=== PATIENT | female | born 1960 | race Caucasian/White ===

== ENCOUNTER → 2017-01-23 | Outpatient (CLI) | payer BC ==
[2014-05-14 05:20] VITALS: BP 142/84
[~2017-01-23] MED LIST: ESTR1PAT78 TD; MELO-150 PO; OLME20TA PO; PANT40TA5 PO
--- NOTE | 2017-01-23 09:37 | KCIC ---
PROCEDURE CT left lower extremity without contrast. HISTORY Pre-surgical planning, Conformin protocol. TECHNIQUE Helical CT imaging of the left hip, left knee, and left ankle is performed without IV contrast. PQRS: One or more the following individualized dose reduction techniques were utilized for the study: 1. Automated exposure control. 2. Adjustment of the mA and/or kV according to patient size. 3. Use of iterative reconstruction technique. COMPARISON None. FINDINGS The left hip joint is intact. There is increased noise to signal ratio. There is tricompartmental degenerative arthropathy of the knee, most advanced in the medial compartment. There is mild lateral subluxation of the patella. There is lateral tilt. There is severe medial compartment narrowing. No acute abnormality of the ankle is seen. IMPRESSION Pre-surgical planning CT. Electronically signed by: Rinku Diaz MD (Jan 23, 2017 09:36:13)
== END | disposition home or self-care (01) ==
LOC: KCIC CT 08:07
PROVIDERS: ATTEND Orthopaedic Surgery
DX: M17.12 Unilateral primary osteoarthritis, left knee (principal)
CPT/HCPCS: 73700

== ENCOUNTER → 2017-02-23 | Outpatient (CLI) | payer BC ==
[2014-05-14 05:20] VITALS: BP 142/84
[~2017-02-23] MED LIST changes: +ALPR0.25 PO; +CALC-584 PO; +CELE200C PO; +GLUC1TAB40 PO; +MULT-658 PO; +VALS160T3 PO; +VENTOLIN HFA18 GM INH
[2017-02-23 09:17] LABS: BASO % 0 % (0-3); EOS % 3 % (0-3); HEMOGLOBIN 13.6 g/dL (12.0-15.5); LYMPH # 2.2 x10^3/uL (1.0-4.8); LYMPH % 32 % (24-48); MEAN CORPUSCULAR HEMOGLOBIN 28 pg (25-35); MEAN CORPUSCULAR HGB CONC 34 g/dL (31-37); MEAN CORPUSCULAR VOLUME 83 fL (79-100); MONO % 6 % (0-9); NEUT % 59 % (31-73); PLATELET COUNT 358 x10^3/uL (140-400); RED BLOOD COUNT 4.81 x10^6/uL (3.50-5.40); RED CELL DISTRIBUTION WIDTH 13.3 % (11.5-14.5); WHITE BLOOD COUNT 6.8 x10^3/uL (4.0-11.0)
[2017-02-23 09:23] LABS: PROTHROMBIN TIME PATIENT 12.9 SEC (11.7-14.0)
[2017-02-23 09:25] LABS: ALBUMIN 3.5 g/dL (3.4-5.0); CALCIUM 9.2 mg/dL (8.5-10.1); CREATININE 0.8 mg/dL (0.6-1.0); GFR 74.2; POTASSIUM 3.8 mmol/L (3.5-5.1)
--- NOTE | 2017-02-23 12:28 | EKG ---
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
[2017-02-23 12:39] LABS: BILIRUBIN,URINE NEGATIVE (NEG); GLUCOSE,URINE NEGATIVE (NEG); NITRITE,URINE NEGATIVE (NEG); PH,URINE 5.5; PROTEIN,URINE NEGATIVE (NEG-TRACE); UROBILINOGEN,URINE 0.2 mg/dL (0.2 mg/dL)
[2017-02-23 13:03] LABS: BACTERIA,URINE FEW /HPF (0-FEW); RBC,URINE 0 /HPF (0-2); SQUAMOUS EPITHELIAL CELL,UR MOD /LPF; WBC,URINE 0 /HPF (0-4)
--- NOTE | 2017-02-23 13:24 | RAD ---
Indication: Hypertension and preop for knee replacement surgery. Time of exam 12:59 PM Correlation is made with prior exam from 03/18/2011. The heart is enlarged but stable. The lungs appear clear. No infiltrate or failure is detected. No effusion or pneumothorax is seen. Impression: No acute cardiopulmonary process is detected.
== END | disposition home or self-care (01) ==
LOC: SURGPAT 13:10
PROVIDERS: ATTEND Orthopaedic Surgery
DX: Z01.818 Encounter for other preprocedural examination (principal); I10 Essential (primary) hypertension
CPT/HCPCS: 36415; 71020; 80048; 81001; 82040; 85027; 85610; 85651; 85730; 87641; 93005

== ENCOUNTER → 2017-03-11 | Outpatient (CLI) | payer BC ==
[2014-05-14 05:20] VITALS: BP 142/84
--- NOTE | 2017-03-11 13:50 | CARD ---
APPROVED REPORT EXAM: Two-dimensional and M-mode echocardiogram with Doppler and color Doppler. Other Information Quality : GoodHR: 56bpm Rhythm : Bradycardia INDICATION Murmur RISK FACTORS Hypertension Obesity 2D DIMENSIONS RVDd2.8 (2.9-3.5cm)Left Atrium(2D)2.5 (1.6-4.0cm) IVSd1.0 (0.7-1.1cm)Aortic Root(2D)2.4 (2.0-3.7cm) LVDd5.4 (3.9-5.9cm)LVOT Diameter2.2 (1.8-2.4cm) PWd1.0 (0.7-1.1cm)LVDs3.7 (2.5-4.0cm) FS (%) 31.4 %SV83.8 ml LVEF(%)58.7 (>50%) Aortic Valve AoV Peak Emery.147.4cm/sAoV VTI36.5cm AO Peak GR.8.7mmHgLVOT VTI 22.27cm AO Mean GR.5mmHg Mitral Valve MV E Wodvutre43.4cm/sMV E Peak Gr.4mmHg MV DECEL [id number] A Hhlozgzg93.6cm/s MV E Mean Gr.1mmHgE/A Ratio1.5 MV A Tryagpih149oy TDI Lateral E' P. V12.10cm/sMedial E' P. V7.85cm/s E/Lateral E'7.8E/Medial E'12.0 Tricuspid Valve TR P. Unsrzwnx518hy/sRAP YDXYTKES1ixCc TR Peak Gr.27mmHg Pulmonary Vein S1 Isxleydo95.6cm/sS2 Wuotdbia10.13cm/s D2 Oktcsdte27.1cm/sPVa xrnlwnji49lmrz LEFT VENTRICLE The left ventricle is normal size. There is normal left ventricular wall thickness. The left ventricu lar systolic function is normal and the ejection fraction is within normal range. The Ejection Fracti on is 55-60%. There is normal LV segmental wall motion. The left ventricular diastolic function and f illing is normal for age. RIGHT VENTRICLE The right ventricle is normal size. The right ventricular systolic function is normal. ATRIA The left atrium size is normal. The right atrium size is normal. The interatrial septum is intact wit h no evidence for an atrial septal defect or patent foramen ovale as noted on 2-D or Doppler imaging. AORTIC VALVE The aortic valve is normal in structure and function. The aortic valve is trileaflet. Doppler and Col or Flow revealed no significant aortic regurgitation. There is no significant aortic valvular stenosi s. MITRAL VALVE The mitral valve leaflets are thickened. There is no evidence of mitral valve prolapse. There is no m itral valve stenosis. Doppler and Color Flow revealed mild mitral regurgitation. TRICUSPID VALVE Doppler and Color Flow revealed mild tricuspid regurgitation. The pulmonary artery systolic pressure is estimated at 30 mmHg. PULMONIC VALVE Doppler and Color Flow revealed trace pulmonic valvular regurgitation. There is no pulmonic valvular stenosis. GREAT VESSELS The aortic root is normal in size. The ascending aorta is normal in size. The pulmonary artery is nor mal. The IVC is normal in size and collapses >50% with inspiration. PERICARDIAL EFFUSION There is no evidence of significant pericardial effusion. Critical Notification Critical Value: No <Conclusion> The left ventricle is normal size. The left ventricular systolic function is normal and the ejection fraction is within normal range. The Ejection Fraction is 55-60%. There is no significant aortic valvular stenosis. Doppler and Color Flow revealed no significant aortic regurgitation. Doppler and Color Flow revealed mild mitral regurgitation. Doppler and Color Flow revealed mild tricuspid regurgitation. The pulmonary artery systolic pressure is estimated at 30 mmHg.
== END | disposition home or self-care (01) ==
LOC: ECHO 08:59
PROVIDERS: ATTEND Family Medicine
DX: I08.1 Rheumatic disorders of both mitral and tricuspid valves (principal)
CPT/HCPCS: 93306

== ENCOUNTER 2017-03-17 05:42 | Inpatient (IN) | payer BC, OTHER ==
[2017-03-17] VITALS (8 sets, daily range): BP systolic 122–151; BP diastolic 66–82
[~2017-03-17] VITALS: Ht 157.5 cm; Wt 103.4 kg
[~2017-03-17 05:42] MED LIST changes: +CELECOXIB 200 MG CAPSULE. PO PRN
[2017-03-17] MEDS ORDERED: [UNRECOGNIZED DRUG - REMARK] INT ART ONE ×4 (06:00)
[2017-03-17] MEDS ORDERED: TRANEXAMIC ACID 1,000 MG in IV NS 50ML -- 1ST BAG INJ ONE (06:00)
[2017-03-17] MEDS ORDERED: VANCOMYCIN 1 GM VIAL. ONE (06:36)
[2017-03-17] MEDS ORDERED: TOBRAMYCIN POWDER 1.2 GM VIAL. ONE (06:36)
[2017-03-17] MEDS ORDERED: ACETAMINOPHEN 500 MG TABLET PO ONE ×2 (06:46→07:00)
[2017-03-17] MEDS ORDERED: LIDOCAINE 2% PF Vial for OR 5 ML VIAL. ONE (06:58)
[2017-03-17] MEDS ORDERED: PROPOFOL 20 ML IV ONE ×2 (06:58→09:09)
[2017-03-17] MEDS ORDERED: FAMOTIDINE 20 MG/2 ML VIAL ONE (06:58)
[2017-03-17] MEDS ORDERED: ONDANSETRON PF 4 MG/2 ML VIAL. ONE (06:58)
[2017-03-17] MEDS ORDERED: DEXAMETHASONE SOD PHOS 20 MG/5 ML VIAL. ONE (06:58)
[2017-03-17] MEDS ORDERED: fentaNYL PF VIAL 100 MCG/2 ML VIAL ONE (07:00)
[2017-03-17] MEDS ORDERED: ONDANSETRON PF 4 MG/2 ML VIAL. IV PRN (07:00)
[2017-03-17] MEDS ORDERED: LIDOCAINE 1% 1 ML SYRINGE. ID PRN (07:00)
[2017-03-17] MEDS ORDERED: IV RINGERS,LACTATED 1000ML 1,000 ML IV SCH (07:00)
[2017-03-17] MEDS ORDERED: MIDAZOLAM HCL/PF 2 MG/2 ML VIAL. ONE (07:00)
[2017-03-17] MEDS ORDERED: ROCURONIUM 50 MG/5 ML VIAL. ONE (07:00)
[2017-03-17] MEDS ORDERED: PROCHLORPERAZINE 10 MG/2 ML VIAL. IV PRN ×2 (07:00→10:00)
[2017-03-17] MEDS ORDERED: MORPHINE SULFATE 5 MG, KETOROLAC TROMETHAMINE 30 MG, ROPIVacaine 0.5% PF 60 ML, EPINEPH... INT ART ONE ×5 (07:00)
[2017-03-17] MEDS ORDERED: fentaNYL PF VIAL 100 MCG/2 ML VIAL IV PRN ×4 (07:00→10:00)
[2017-03-17] MEDS ORDERED: PROPOFOL 100 ML IV ONE (07:14)
--- NOTE | 2017-03-17 07:27 | PDOC1 ---
History and Physical Date of Admission Date of Admission DATE: 03/17/17 Identification/Chief Complaint Chief Complaint left knee osteoarthritis pain Problems: Source Source: Chart review History of Present Illness History of Present Illness Ms. Morales is a 56 year old female patient with left knee pain. She had a right knee medial unicondylar arthroplasty on 04/07/16, which is dong well. She has had multiple left knee cortisone injections in the past, with varying relief. She reports stiffness in the mornings and after prolonged sitting. The pain is a dull ache that is rated at a constant 5/10 on average, which is aggravated by prolonged weightbearing. Viscosupplementation was denied by her insurance company. She has pain that wakes her up at night and interferes with her sleep and activities of daily living. She was participating in an exercise class, but is having difficulty now due to the left knee osteoarthritis pain. Past Medical History Cardiovascular: HTN Pulmonary: Asthma GI: GERD Musculoskeletal: Osteoarthritis Past Surgical History Past Surgical History: Total knee replacement, Hysterectomy, Other (right ankle tendon repair, knee arthroscopy, breast aug) Family History Family History: Diabetes, Heart Disease, Osteo Arthiritis Social History Smoke: No ALCOHOL: occassional Drugs: None Current Medications Current Medications Current Medications Ropivacaine 53.3 ml/Epinephrine HCl 0.6 mg/ Morphine Sulfate 5 mg/Sodium Chloride 100 ml @ 100 mls/hr 1X PERIOP ONCE INT ART ; Start 03/17/17 at 06:00 ; Stop 03/17/17 at 06:59; Status Cancel Ondansetron HCl (Zofran) 4 mg PRN Q6HRS PRN IV NAUSEA/VOMITING; Start 03/17/17 at 07:00; Stop 03/18/17 at 06:59 Fentanyl Citrate (Fentanyl 2ml Vial) 25 mcg PRN Q5MIN PRN IV MILD PAIN; Start 03/17/17 at 07:00; Stop 03/18/17 at 06:59 Fentanyl Citrate (Fentanyl 2ml Vial) 50 mcg PRN Q5MIN PRN IV MODERATE PAIN; Start 03/17/17 at 07:00; Stop 03/18/17 at 06:59 Ringer's Solution 1,000 ml @ 30 mls/hr Q24H IV Last administered on 03/17/17t 06:48; Start 03/17/17 at 07:00; Stop 03/17/17 at 18:59 Lidocaine HCl 2 ml PRN 1X PRN ID PRIOR TO IV START; Start 03/17/17 at 07:00; Stop 03/18/17 at 06:59 Prochlorperazine Edisylate (Compazine) 5 mg PACU PRN PRN IV NAUSEA, MRX1; Start 03/17/17 at 07:00; Stop 03/18/17 at 06:59 Celecoxib (CeleBREX) 400 mg 1X PREOP PRN PO PRIOR TO PROCEDURE Last administered on 03/17/17t 06:49; Start 03/16/17 at 06:00 Cefazolin Sodium/ Dextrose 50 ml @ 100 mls/hr 1X PREOP PRN IV PRIOR TO PROCEDURE; Start 03/17/17 at 06:00; Stop 03/17/17 at 18:00 Tranexamic Acid 1000 mg/Sodium Chloride 60 ml @ 60 mls/hr 1X PERIOP ONCE INJ ; Start 03/17/17 at 06:00; Stop 03/17/17 at 06:59; Status DC Tranexamic Acid 1000 mg/Sodium Chloride 60 ml @ 60 mls/hr 1X PERIOP ONCE INJ ; Start 03/17/17 at 08:00; Stop 03/17/17 at 08:59 Vancomycin HCl 1 gm STK-MED ONCE .ROUTE ; Start 03/17/17 at 06:36; Stop at 06:37; Status DC Tobramycin Sulfate 1.2 gm STK-MED ONCE .ROUTE ; Start 03/17/17 at 06:36; Stop at 06:37; Status DC Morphine Sulfate 5 mg/Ketorolac Tromethamine 30 mg/Ropivacaine 60 ml/ Epinephrine HCl 0.5 mg/Sodium Chloride 100 ml @ 100 mls/hr 1X PERIOP ONCE INT ART ; Start 03/17/17 at 07:00; Stop 03/17/17 at 07:59 Acetaminophen (Tylenol) 500 mg STK-MED ONCE PO ; Start 03/17/17 at 06:46; Stop 03/17/17 at 06:47; Status DC Acetaminophen (Tylenol) 1,000 mg 1X ONCE PO Last administered on 03/17/17t 06: 54; Start 03/17/17 at 07:00; Stop 03/17/17 at 07:01; Status DC Propofol 20 ml @ As Directed STK-MED ONCE IV ; Start 03/17/17 at 06:58; Stop at 06:59; Status DC Dexamethasone Sodium Phosphate (Decadron) 20 mg STK-MED ONCE .ROUTE ; Start at 06:58; Stop 03/17/17 at 06:59; Status DC Ondansetron HCl (Zofran) 4 mg STK-MED ONCE .ROUTE ; Start 03/17/17 at 06:58; Stop 03/17/17 at 06:59; Status DC Lidocaine HCl (Lidocaine Pf 2% Vial) 5 ml STK-MED ONCE .ROUTE ; Start 03/17/17 at 06:58; Stop 03/17/17 at 06:59; Status DC Famotidine (Pepcid) 20 mg STK-MED ONCE .ROUTE ; Start 03/17/17 at 06:58; Stop at 06:59; Status DC Midazolam HCl (Versed) 2 mg STK-MED ONCE .ROUTE ; Start 03/17/17 at 07:00; Stop 03/17/17 at 07:01; Status DC Fentanyl Citrate (Fentanyl 2ml Vial) 100 mcg STK-MED ONCE .ROUTE ; Start at 07:00; Stop 03/17/17 at 07:01; Status DC Rocuronium [place] (Zemuron) 50 mg STK-MED ONCE .ROUTE ; Start 03/17/17 at 07:00 ; Stop 03/17/17 at 07:01; Status DC Propofol 100 ml @ As Directed STK-MED ONCE IV ; Start 03/17/17 at 07:14; Stop 03/17/17 at 07:15; Status DC Active Scripts Active Reported Xanax (Alprazolam) 0.25 Mg Tablet 0.25 Mg PO PRN Q6HRS PRN Ventolin Hfa Inhaler (Albuterol Sulfate) 18 Gm Hfa.aer.ad 2 Puff INH Q4HRS Calcium 500-Vit D3 600 Tablet (Calcium Carbonate/Vitamin D3) 1 Each Tablet 1 Each PO BID Centrum Silver Tablet (Multivits-Min/Fa/Lycopene/Lut) 1 Each Tablet 1 Each PO DAILY Glucosamine-Msm Caplet (Glucosamine Sulfate/Msm) 1 Each Tablet 1 Each PO DAILY Celebrex (Celecoxib) 200 Mg Capsule 1 Cap PO DAILY Diovan (Valsartan) 160 Mg Tablet 160 Mg PO DAILY Pantoprazole Sodium 40 Mg Tablet.dr 40 Mg PO DAILY Allergies Allergies: Coded Allergies: acetaminophen (Verified Adverse Reaction, Intermediate, Nausea and Vomiting, 03/17/17) hydrocodone (Verified Adverse Reaction, Intermediate, Nausea and Vomiting , 03/17/17) Physical Exam General: Alert, Oriented X3, Cooperative, No acute distress HEENT: Atraumatic, EOMI Lungs: Normal air movement Heart: RRR Abdomen: Soft Extremities: No clubbing, No cyanosis, Normal pulses Skin: No rashes, No breakdown, No significant lesion Neuro: Normal speech, Sensation intact Psych/Mental Status: Mental status NL, Mood NL Vitals Vitals Vital Signs Date Time Temp Pulse Resp B/P (MAP) Pulse Ox O2 Delivery O2 Flow Rate FiO2 03/17/17 06:22 98.7 56 16 144/70 96 Room Air 98.7 VTE Prophylaxis Ordered VTE Prophylaxis Devices: Yes VTE Pharmacological Prophylaxi: Yes Assessment/Plan Assessment/Plan Ms. Morales has has failed nonoperative treatment of left knee osteoarthritis. The pain is now affecting her daily life and has prohibited her from exercising. Dr. [place] recommended left total knee arthroplasty using 3-D printed implants. Potential risks were discussed, such as infection, neurovascular injury, bleeding, blood clots, need for revision surgery or any other potential surgical or anesthetic complications. All of her questions were answered and she desires to proceed. SIDDHARTH ARITA March 17, 2017 07:27
[2017-03-17] MEDS ORDERED: ePHEDrine PF IN SALINE 50 MG/5 ML DISP.SYRIN IV ONE (07:54)
[2017-03-17] MEDS ORDERED: TRANEXAMIC ACID 1,000 MG in IV NS 50ML -- 2ND BAG INJ ONE (08:00)
[2017-03-17] MEDS ORDERED: MORPHINE SULFATE 10 MG/ML VIAL. IV PRN (10:00)
[2017-03-17] MEDS ORDERED: diphenhydrAMINE 50 MG/ML VIAL IV PRN (10:00)
[2017-03-17] MEDS ORDERED: METOCLOPRAMIDE HCL 10 MG/2 ML VIAL. IV PRN (10:00)
[2017-03-17] MEDS ORDERED: MORPHINE SULFATE 2 MG/ML DISP.SYRIN. IV PRN (10:00)
[2017-03-17] MEDS ORDERED: traMADol 50 MG TABLET PO PRN (10:00)
[2017-03-17] MEDS ORDERED: PROCHLORPERAZINE 5 MG TABLET. PO PRN (10:00)
[2017-03-17] MEDS ORDERED: 0.9 % SODIUM CHLORIDE 10 ML DISP.SYRIN. IV PRN (10:00)
[2017-03-17] MEDS ORDERED: MORPHINE SULFATE 4 MG/ML DISP.SYRIN. IV PRN ×2 (10:00)
[2017-03-17] MEDS ORDERED: CALCIUM CARBONATE 500 MG TAB.CHEW PO PRN (10:00)
[2017-03-17] MEDS ORDERED: oxyCODONE IR 5 MG TABLET PO PRN (10:00)
[2017-03-17] MEDS ORDERED: DEXTROSE 50% 25 GM / 50ML DISP.SYRIN. IV PRN (10:00)
[2017-03-17] MEDS ORDERED: ZOLPIDEM 5 MG TABLET. PO PRN (10:00)
--- NOTE | 2017-03-17 10:04 | PDOC4 ---
Operative Note Operative Note Date of Procedure: March 17, 2017 Pre-Op Diagnosis: Osteoarthritis left knee Post-Op Diagnosis: Osteoarthritis left knee Procedure: left total knee arthroplasty Surgeon: Ema [place] MD Hand Candy Molder: Jessika Schuler PA-C Anesthesia: General EBL: 100 mL Specimens Obtained: left knee bone and soft tissue Complications: none Implant Company: [employer] Patient Matched Implants and Patient Matched Jigs Drains: Hemovac plus pain catheter Tourniquet time: 67 minutes Indications for Procedure: Arthritis pain unrelieved by nonoperative management. Findings: Severe osteoarthritis with bone on bone contact medially Implants used: Custom posterior stabilized implants, with patella resurfacing 32 mm Procedure in Detail: The patient was identified in the preoperative holding area, and the correct left extremity was marked by me. The patient was taken to the operating room where the patient was anesthetized by the Department of Anesthesia. Preoperative antibiotics were given intravenously. Tranexamic acid 1 g was given intravenously for intraoperative hemostasis. A "time-out" procedure was performed. The patient was positioned supine on the operative table with a tourniquet on the upper thigh. The limb was thoroughly prepped and draped in sterile fashion. An impervious stockinet and adhesive drape were used such that the skin was entirely covered. An TapSurge leg castro was used. The operating team wore personal exhaust-ventilated hoods. The tourniquet was inflated to 350 mm Hg. A midline skin incision was made with a scalpel using the patella and tibial tubercle as landmarks. Electrocautery was used for hemostasis. My licensed nursing assistant used rake retractors. A medial parapatellar arthrotomy incision was used with extension into the distal quadriceps tendon. The patella was retracted laterally and Hohmann retractors were now used by my licensed nursing assistant. Excess synovium, the menisci, and the cruciate ligaments were resected sharply. The patella was assessed and excess synovium and osteophytes around the patellar articulation were removed. The patella was measured with a caliper, cut freehand with a saw using caliper measurements, sized, and then drilled for an oval three-pegged patella component. Periarticular injection was used in the suprapatellar pouch and distal quadriceps muscle. The patient-matched Positioning Jig was applied, and the coring reamer was used to expose the subchondral bone. The Alignment Jig and Distal Resection Jig were applied to the femur. The rotational pin holes were drilled on the distal femur. The distal resection was made using the Jig. No additional distal femoral resection was required. My licensed nursing assistant held Hohmann retractors and an Army-Regan retractor to protect the medial and lateral collateral ligaments, the patellar tendon, the skin and the other soft tissues. The Extension Spacer Jig was used to check that the cuts were planar. The patient-matched Tibial Jig was first aligned to the tibia, and cartilage was removed with a curette for application of the Jig to the subchondral bone. The Tibial Jig was pinned to the tibia and rotational alignment and the planned resection thickness assessed. An external alignment james was used to verify the planned cut in the varus-valgus plane and regarding posterior slope referencing the tibial tubercle, the tibial shaft, the ankle joint, and the second metatarsal. The upper tibia was cut made with an oscillating saw. My licensed nursing assistant held Hohmann retractors and a posterior cruciate ligament retractor to protect the medial and lateral collateral ligaments, the patellar tendon, the skin, the peroneal nerve and the other soft tissues. Gap balancing was now performed, using the Extension Spacer Jig in extension, and then a thinner but similar Flexion Spacer Jig, and gap balance assessed. The F4 femoral cutting Jig was now applied using the previous rotational pin holes and using the Flexion Spacer Jig. An kizzy wing was used to confirm that the femoral cut was appropriate, and would not notch the femur. Additional pins were used on the F4 Jig. The anterior, posterior, and anterior chamfer cuts were made without difficulty, with appropriate bone resection. The lug holes were drilled. The Resection Flexion Spacer Jig confirmed the cuts and balance in flexion, and no additional resection was needed. The F5 Chamfer Jig was applied and the two posterior chamfer cuts were made. Finally the Box Cutting Jig was used, pinned into place, and the box resected with a reciprocating saw. The Box Gauge Jig was used to verify the resection and additional box resection and soft tissue resection of the PCL was used so that the Box Gauge Jig fit flush. The posterior compartment was cleared of osteophytes and loose bodies, and posterior capsule released. Ciera-articular injection was used in the posterior compartment. A preliminary reduction was performed with the patient matched trial femur, patient-matched tibia alignment guide and patella. Soft-tissue balancing was now performed, and extension and rotation of the alignments was checked using a guide james in the tibial trial and a guide pin in the femur. No additional releases were required. The stability was assessed using different thicknesses of tibial articular surface to find satisfactory stability and good range of motion. The rotation of the tibial component was marked on the upper tibia. Final trial reduction was now performed verifying patella tracking and tibiofemoral stability and alignment. The tibia preparation was completed with a drill, and fin punch at the previously noted rotation. The final patient-matched implants were verified and opened. Outer gloves were changed by the operating team. The bone cuts were washed thoroughly with the Qalendra InterPulse device and dried. Two packages of Palacos bone cement were mixed in powdered form with 1 gm of Vancomycin and 1.2 g tobramycin, then vacuum-mixed with the monomer, and placed into a cement gun. The cut surfaces of the bone were thoroughly dried with Pringle-tip suction and with laparotomy sponges for cement interdigitation. The final components were cemented into place. The knee was kept at full extension while the cement hardened, and excess cement was removed. Tranexamic acid 1 g was redosed intravenously for additional intraoperative hemostasis. A final periarticular injection was used for pain relief. The tourniquet was released, and electrocautery was used for hemostasis. A final check of [id number] and stability was made, and the polyethylene implant final size was chosen, 10 mm thickness. The polyethylene implant was secured to the tibial baseplate, and the knee was reduced a final time. Thorough irrigation was used. Hemovac and pain catheter were used.The arthrotomy was closed with interrupted [id number] #1 PDS suture. The arthrotomy incision was then run with #1 STRATAFIX Symmetric PDS Plus Knotless suture. The subcutaneous tissues were closed with #2-0 Vicryl by my licensed nursing assistant. The skin was reapproximated with STRATAFIX Spiral MONOCRYL Plus Knotless suture by my licensed nursing assistant. The skin incision was then covered and reinforced with Dermabond Prineo mesh skin closure dressing by my licensed nursing assistant. She then applied bulky sterile gauze dressing was applied. Needle and sponge counts were correct. EMA [place] MD March 17, 2017 10:03
--- NOTE | 2017-03-17 10:29 | RAD ---
Indication postop. AP and lateral views of the left knee were obtained. There is a total knee replacement. No complication is seen. Surgical drain is noted.
[2017-03-17] MEDS ORDERED: ALPRAZolam 0.25 MG TABLET PO PRN (13:15)
[2017-03-17] MEDS: LOSARTAN POTASSIUM 50 MG TABLET. PO SCH (13:24)
[2017-03-17] MEDS: IV DEXTROSE 5 %-0.45 % NACL 1,000 ML IV SCH (14:53)
[2017-03-17] MEDS: ALBUTEROL SULFATE 2.5 MG/3 ML NEBU. NEB SCH ×2 (15:53→19:40)
[2017-03-17] MEDS ORDERED: NON FORMULARY ITEM (Albuterol Sulfate (Ventolin Hfa Inhaler) 2 PUFF) INH SCH (16:00)
[2017-03-17] MEDS: FERROUS SULFATE 325 MG TABLET. PO SCH (17:00)
[2017-03-17] MEDS: CALCIUM CARB/VIT D3 500/200 TABLET. PO SCH (17:10)
[2017-03-17] MEDS: CELECOXIB 200 MG CAPSULE. PO SCH (21:11)
[2017-03-17] MEDS: ASPIRIN ENTERIC COATED 325 MG TABLET.DR. PO SCH (21:11)
[2017-03-18 03:03] VITALS: BP 148/72
[2017-03-18] MEDS ORDERED: MAGNESIUM HYDROXIDE 2,400 MG/30 ML ORAL.SUSP. PO PRN (06:00)
[2017-03-18 06:39] VITALS: BP 142/68
[2017-03-18] MEDS: IV DEXTROSE 5 %-0.45 % NACL 1,000 ML IV SCH (07:00)
[2017-03-18] MEDS: SENNOSIDES/DOCUSATE 8.6/50MG TABLET. PO SCH (08:06)
[2017-03-18] MEDS: CALCIUM CARB/VIT D3 500/200 TABLET. PO SCH ×2 (08:06→17:08)
[2017-03-18] MEDS: PANTOPRAZOLE 40 MG TABLET.DR. PO SCH (08:06)
[2017-03-18] MEDS: MULTIVITAMIN with MINERAL TABLET. PO SCH (08:06)
[2017-03-18] MEDS: FERROUS SULFATE 325 MG TABLET. PO SCH ×2 (08:07→17:00)
[2017-03-18] MEDS: CELECOXIB 200 MG CAPSULE. PO SCH ×2 (08:07→21:08)
[2017-03-18] MEDS: ASPIRIN ENTERIC COATED 325 MG TABLET.DR. PO SCH ×2 (08:07→21:08)
[2017-03-18] MEDS: LOSARTAN POTASSIUM 50 MG TABLET. PO SCH (08:08)
[2017-03-18 08:15] LABS: HEMATOCRIT 36.4 % (36.0-47.0); HEMOGLOBIN 12.2 g/dL (12.0-15.5); RED BLOOD COUNT 4.28 x10^6/uL (3.50-5.40); RED CELL DISTRIBUTION WIDTH 13.8 % (11.5-14.5); WHITE BLOOD COUNT 9.7 x10^3/uL (4.0-11.0)
[2017-03-18] MEDS: traMADol 50 MG TABLET PO PRN ×4 (09:35→23:35)
--- NOTE | 2017-03-18 09:43 | PDOC ---
PROGRESS NOTES Subjective Subjective No complaints. Pain controlled. Objective Vital Signs Vital Signs Date Time Temp Pulse Resp B/P (MAP) Pulse Ox O2 Delivery O2 Flow Rate FiO2 03/18/17 09:35 16 Room Air 03/18/17 08:08 62 142/68 03/18/17 06:39 98.3 97 98.3 03/17/17 09:56 10 Physical Exam Dressing dry and intact. Pain catheter and Hemovac in place. Good dorsiflexion and plantarflexion of the foot with no evidence of neurovascular injury or DVT. Calves are soft and non-tender. Negative Homans. Peripheral pulses and light touch sensation intact. Labs Laboratory Tests Test 03/18/17 07:30 White Blood Count 9.7 x10^3/uL (4.0-11.0) Red Blood Count 4.28 x10^6/uL (3.50-5.40) Hemoglobin 12.2 g/dL (12.0-15.5) Hematocrit 36.4 % (36.0-47.0) Mean Corpuscular Volume 85 fL (79-100) Mean Corpuscular Hemoglobin 28 pg (25-35) Mean Corpuscular Hemoglobin Concent 33 g/dL (31-37) Red Cell Distribution Width 13.8 % (11.5-14.5) Platelet Count 287 x10^3/uL (140-400) Laboratory Tests Test 03/18/17 07:30 White Blood Count 9.7 x10^3/uL (4.0-11.0) Red Blood Count 4.28 x10^6/uL (3.50-5.40) Hemoglobin 12.2 g/dL (12.0-15.5) Hematocrit 36.4 % (36.0-47.0) Mean Corpuscular Volume 85 fL (79-100) Mean Corpuscular Hemoglobin 28 pg (25-35) Mean Corpuscular Hemoglobin Concent 33 g/dL (31-37) Red Cell Distribution Width 13.8 % (11.5-14.5) Platelet Count 287 x10^3/uL (140-400) Imaging Postoperative x-rays reviewed by me, showing satisfactory total knee replacement , with no apparent complications. Assessment Assessment POD #1 left TKA Problems: Plan Plan of Care Continue POC including DVT prophylaxis and physical therapy. SIDDHARTH ARITA March 18, 2017 09:43
[2017-03-18] MEDS ORDERED: SCOPOLAMINE 1.5MG PATCH. TD ONE (10:45)
[2017-03-18] MEDS ORDERED: BISACODYL 10 MG SUPP.RECT. PR PRN (16:00)
[2017-03-18 17:59] VITALS: BP 152/74
[2017-03-19 05:08] LABS: HEMATOCRIT 34.3 % (36.0-47.0); HEMOGLOBIN 11.5 g/dL (12.0-15.5)
[2017-03-19 06:06] VITALS: BP 146/73
[2017-03-19] MEDS: traMADol 50 MG TABLET PO PRN ×4 (06:40→20:44)
[2017-03-19] MEDS: PANTOPRAZOLE 40 MG TABLET.DR. PO SCH (06:40)
[2017-03-19] MEDS: SENNOSIDES/DOCUSATE 8.6/50MG TABLET. PO SCH (08:33)
[2017-03-19] MEDS: FERROUS SULFATE 325 MG TABLET. PO SCH ×2 (08:33→17:21)
[2017-03-19] MEDS: CELECOXIB 200 MG CAPSULE. PO SCH ×2 (08:33→20:44)
[2017-03-19] MEDS: CALCIUM CARB/VIT D3 500/200 TABLET. PO SCH ×2 (08:33→17:21)
[2017-03-19] MEDS: ASPIRIN ENTERIC COATED 325 MG TABLET.DR. PO SCH ×2 (08:33→20:44)
[2017-03-19] MEDS: MULTIVITAMIN with MINERAL TABLET. PO SCH (08:33)
[2017-03-19] MEDS: LOSARTAN POTASSIUM 50 MG TABLET. PO SCH (08:40)
--- NOTE | 2017-03-19 12:41 | PDOC ---
PROGRESS NOTES Subjective Subjective Doing well. Only reports mild pain increase from yesterday. Objective Vital Signs Vital Signs Date Time Temp Pulse Resp B/P (MAP) Pulse Ox O2 Delivery O2 Flow Rate FiO2 03/19/17 09:31 Room Air 03/19/17 08:40 62 142/64 03/19/17 06:40 20 03/19/17 06:06 98.6 98 98.6 03/17/17 09:56 10 Physical Exam Expected swelling. Pain catheter and drain have been removed. Dressing with spotty drainage only. Calf soft and nontender. Negative homans sign. Good AROM ankle. Peripheral pulses and light touch sensation intact. Labs Laboratory Tests Test 03/18/17 07:30 03/19/17 03:40 White Blood Count 9.7 x10^3/uL (4.0-11.0) Red Blood Count 4.28 x10^6/uL (3.50-5.40) Hemoglobin 12.2 g/dL (12.0-15.5) 11.5 g/dL (12.0-15.5) Hematocrit 36.4 % (36.0-47.0) 34.3 % (36.0-47.0) Mean Corpuscular Volume 85 fL (79-100) Mean Corpuscular Hemoglobin 28 pg (25-35) Mean Corpuscular Hemoglobin Concent 33 g/dL (31-37) 34 g/dL (31-37) Red Cell Distribution Width 13.8 % (11.5-14.5) Platelet Count 287 x10^3/uL (140-400) Laboratory Tests Test 03/19/17 03:40 Hemoglobin 11.5 g/dL (12.0-15.5) Hematocrit 34.3 % (36.0-47.0) Mean Corpuscular Hemoglobin Concent 34 g/dL (31-37) Imaging X-rays independently reviewed by me and show satisfactory TKA alignment and no apparent complications. Assessment Assessment POD 2 TKA Problems: Plan Plan of Care Continue DVT prophylaxis and physical therapy. Planned discharge tomorrow. Office F/U in 10-14 days. EMA MONTANA MD Mar 19, 2017 12:41
--- NOTE | 2017-03-19 15:45 | PATHOLOGY ---
PATHOLOGY REPORT * * * * * * * * FINAL DIAGNOSIS: Segments of bone and soft tissue, left total knee arthroplasty: - Advanced degenerative arthritis. REPORT ELECTRONICALLY SIGNED BY: Owen Millard M.D. DATE/TIME: 03/19/2017 15:44 * * * * * * * * GROSS PATHOLOGY: Received in formalin labeled "Carlos Del Real, left knee tissue," are multiple segments of bone, including tibial plateau, measuring 8.8 x 8.6 x 3.1 cm in aggregate dimensions admixed with soft tissue; meniscus is present. The specimen shows focal eburnation of the articular surfaces. Pool Table Mechanic sections of bone and soft tissue are submitted in cassette A1, following decalcification. (CAA; 03/18/2017) INITIAL CPT CODE(S): A; 18007, 81614 Professional services [place] [facility] [place] [address] Technical services performed by [facility] at [address] [place] [address], [place] [address]. SPECIMEN(S) RECEIVED: A.Left knee tissue CLINICAL HISTORY: Left knee OA PATIENT: CARLOS DEL REAL /AGE: 9 1960 (Age: 56) PATIENT #: [id number] ALT CASE #: SPECIMEN COLLECTION DATE: 03/17/2017 SPECIMEN RECEIVED DATE: 03/17/2017 [facility] - [address] [place] [address] - PHONE: [phone] * * * END OF REPORT * * *
[2017-03-19 17:53] VITALS: BP 157/65
[2017-03-20 06:02] VITALS: BP 148/79
[2017-03-20] MEDS: PANTOPRAZOLE 40 MG TABLET.DR. PO SCH (06:06)
[2017-03-20] MEDS: CELECOXIB 200 MG CAPSULE. PO SCH (08:04)
[2017-03-20] MEDS: FERROUS SULFATE 325 MG TABLET. PO SCH (08:04)
[2017-03-20] MEDS: SENNOSIDES/DOCUSATE 8.6/50MG TABLET. PO SCH (08:05)
[2017-03-20] MEDS: CALCIUM CARB/VIT D3 500/200 TABLET. PO SCH (08:05)
[2017-03-20] MEDS: ASPIRIN ENTERIC COATED 325 MG TABLET.DR. PO SCH (08:05)
[2017-03-20] MEDS: MULTIVITAMIN with MINERAL TABLET. PO SCH (08:05)
[2017-03-20] MEDS: LOSARTAN POTASSIUM 50 MG TABLET. PO SCH (08:08)
[2017-03-20] MEDS: traMADol 50 MG TABLET PO PRN ×2 (08:38→12:39)
[2017-03-20 09:22] LABS: HEMATOCRIT 33.2 % (36.0-47.0); HEMOGLOBIN 11.4 g/dL (12.0-15.5)
[2017-03-20] MEDS ORDERED: HYDR-2762 PO (10:00)
[2017-03-20] MEDS ORDERED: CYCL10TA2 PO (10:00)
[2017-03-20] MEDS ORDERED: WARF2TAB PO (10:50)
--- NOTE | 2017-03-20 12:28 | PDOC ---
PROGRESS NOTES Subjective Subjective Doing well. Planning for discharge later today after PT. Objective Vital Signs Vital Signs Date Time Temp Pulse Resp B/P (MAP) Pulse Ox O2 Delivery O2 Flow Rate FiO2 03/20/17 08:38 Room Air 03/20/17 08:08 62 157/79 03/20/17 06:02 98.1 18 96 98.1 03/17/17 09:56 10 Physical Exam Expected swelling. Prineo dressing intact. Tiny amount of serous drainage. Calf soft and nontender. Negative Homans. Good AROM ankle. Peripheral pulses and light touch sensation intact. Labs Laboratory Tests Test 03/19/17 03:40 03/20/17 08:35 Hemoglobin 11.5 g/dL (12.0-15.5) 11.4 g/dL (12.0-15.5) Hematocrit 34.3 % (36.0-47.0) 33.2 % (36.0-47.0) Mean Corpuscular Hemoglobin Concent 34 g/dL (31-37) 34 g/dL (31-37) Laboratory Tests Test 03/20/17 08:35 Hemoglobin 11.4 g/dL (12.0-15.5) Hematocrit 33.2 % (36.0-47.0) Mean Corpuscular Hemoglobin Concent 34 g/dL (31-37) Assessment Assessment POD 3 left TKA Problems: Plan Plan of Care Discharge later today, to home. Continue DVT prophylaxis and physical therapy. F/U 10-14 days. SIDDHARTH ARITA Mar 20, 2017 12:28
--- NOTE | 2017-03-20 12:32 | PDOC3 ---
Discharge Summary Visit Information Date of Admission: March 17, 2017 Date of Discharge: Mar 20, 2017 Admitting Diagnosis: left knee osteoarthritis pain Brief Hospital Course Allergies Allergies Coded Allergies Type Severity Reaction Last Updated Verified acetaminophen Adverse Reaction Intermediate Nausea and Vomiting 03/17/17 Yes hydrocodone Adverse Reaction Intermediate Nausea and Vomiting 03/17/17 Yes Vital Signs Vital Signs Date Time Temp Pulse Resp B/P (MAP) Pulse Ox O2 Delivery O2 Flow Rate FiO2 03/20/17 08:38 Room Air 03/20/17 08:08 62 157/79 03/20/17 06:02 98.1 18 96 98.1 Lab Results Laboratory Tests Test 03/19/17 03:40 03/20/17 08:35 Hemoglobin 11.5 g/dL (12.0-15.5) 11.4 g/dL (12.0-15.5) Hematocrit 34.3 % (36.0-47.0) 33.2 % (36.0-47.0) Mean Corpuscular Hemoglobin Concent 34 g/dL (31-37) 34 g/dL (31-37) Laboratory Tests Test 03/20/17 08:35 Hemoglobin 11.4 g/dL (12.0-15.5) Hematocrit 33.2 % (36.0-47.0) Mean Corpuscular Hemoglobin Concent 34 g/dL (31-37) Brief Hospital Course 56 year old female who presented with knee osteoarthritis, for elective total knee arthroplasty. The patient underwent total knee arthroplasty under general anesthesia the day of admission. Perioperative antibiotics and DVT prophylaxis were used. Postoperatively physical therapy and case management were consulted. The patient progressed and is stable for discharge. Discharge Information Condition at Discharge: Stable Follow Up: Weeks (2) Disposition/Orders: D/C to Home Scheduled Albuterol Sulfate (Ventolin Hfa Inhaler), 2 PUFF INH Q4HRS, (Reported) Calcium Carbonate/Vitamin D3 (Calcium 500-Vit D3 600 Tablet), 1 EACH PO BID, ( Reported) Celecoxib (Celebrex), 1 CAP PO DAILY, (Reported) Cyclobenzaprine Hcl (Cyclobenzaprine Hcl), 1 TAB PO TID, (Reported) Glucosamine Sulfate/Msm (Glucosamine-Msm Caplet), 1 EACH PO DAILY, (Reported) Multivits-Min/Fa/Lycopene/Lut (Centrum Silver Tablet), 1 EACH PO DAILY, ( Reported) Pantoprazole Sodium (Pantoprazole Sodium), 40 MG PO DAILY, (Reported) Valsartan (Diovan), 160 MG PO DAILY, (Reported) Warfarin Sodium (Coumadin), 1 TAB PO DAILY, (Reported) Scheduled PRN Alprazolam (Xanax), 0.25 MG PO PRN Q6HRS PRN for ANXIETY / AGITATION, (Reported) Hydrocodone Bit/Acetaminophen (Hydrocodone-Apap 7.5-325 ), 1 TAB PO PRN Q6HRS PRN for PAIN, (Reported) Patient Instructions Patient Instructions Patient Instructions Continue to WBAT with walker. Keep dressing dry and intact. F/U with [facility] in 10-14 days. Call for appointment. Physical therapy for TKA. Continue DVT prophylaxis with aspirin 325 mg twice daily. SIDDHARTH ARITA Mar 20, 2017 12:32
[2017-03-20] MEDS ORDERED: FERR-26 PO (12:46)
[2017-03-20] MEDS ORDERED: ASPI325T11 PO (12:46)
[2017-03-20] MEDS ORDERED: TRAM50TA PO (12:58)
[2017-03-20 15:10] VITALS: BP 159/77
== END 2017-03-20 16:00 | disposition home or self-care (01) | DRG 470 ==
LOC: OPSVCIP 05:42 → 4 SOUTHEST 10:54
PROVIDERS: ADMIT Orthopaedic Surgery; ATTEND Orthopaedic Surgery
PROC: 0SRD0J9 Replacement of Left Knee Joint with Synthetic Substitute, Cemented, Open Approach (ICD-10-PCS; principal; 2017-03-17 07:10)
DX: M17.12 Unilateral primary osteoarthritis, left knee (principal); I10 Essential (primary) hypertension; K21.9 Gastro-esophageal reflux disease without esophagitis; F41.9 Anxiety disorder, unspecified; Z82.49 Family history of ischemic heart disease and other diseases of the circulatory system; Z83.3 Family history of diabetes mellitus; Z82.61 Family history of arthritis; Z79.899 Other long term (current) drug therapy; Z88.6 Allergy status to analgesic agent
CPT/HCPCS: 36415; 73560; 85014; 85018; 85027; 86850; 86900; 86901; 88305; 88311; 94250; 94640; 94760; C1713; J0171; J0690; J0780; J1100; J1885; J2250; J2270; J2405; J2704; J2795; J3010; J3260; J3370; J3490; J7030; J7120; S0028; 97116; 97150; 97530; 97535; C1769

== ENCOUNTER 2017-03-30 17:52 | Inpatient (IN) | payer BC ==
[~2017-03-30] VITALS: Ht 157.5 cm; Wt 104.5 kg
[2017-03-30] MEDS ORDERED: ONDANSETRON PF 4 MG/2 ML VIAL. ONE (18:45)
[2017-03-30] MEDS ORDERED: ONDANSETRON PF 4 MG/2 ML VIAL. IV ONE (19:00)
[2017-03-30] MEDS ORDERED: IV NORMAL SALINE 1000ML BAG 1,000 ML IV ONE (19:00)
[2017-03-30 19:20] LABS: BASO % 0 % (0-3); EOS % 0 % (0-3); HEMATOCRIT 37.9 % (36.0-47.0); HEMOGLOBIN 12.6 g/dL (12.0-15.5); LYMPH # 1.2 x10^3/uL (1.0-4.8); LYMPH % 6 % (24-48); MEAN CORPUSCULAR HEMOGLOBIN 28 pg (25-35); MEAN CORPUSCULAR HGB CONC 33 g/dL (31-37); MEAN CORPUSCULAR VOLUME 83 fL (79-100); MONO % 4 % (0-9); NEUT % 90 % (31-73); PLATELET COUNT 437 x10^3/uL (140-400); RED BLOOD COUNT 4.55 x10^6/uL (3.50-5.40); RED CELL DISTRIBUTION WIDTH 13.8 % (11.5-14.5); WHITE BLOOD COUNT 19.3 x10^3/uL (4.0-11.0)
[2017-03-30 19:34] LABS: CALCIUM 9.4 mg/dL (8.5-10.1); CREATININE 0.8 mg/dL (0.6-1.0); GFR 74.2; POTASSIUM 3.8 mmol/L (3.5-5.1)
[2017-03-30 19:40] LABS: ALBUMIN 3.8 g/dL (3.4-5.0); ALBUMIN/GLOBULIN RATIO 1.1 (1.0-1.7); TOTAL BILIRUBIN 0.5 mg/dL (0.2-1.0); TOTAL PROTEIN 7.4 g/dL (6.4-8.2)
[2017-03-30] MEDS ORDERED: ACETAMINOPHEN 500 MG TABLET PO ONE (19:45)
[2017-03-30 20:19] LABS: BILIRUBIN,URINE NEGATIVE (NEG); GLUCOSE,URINE NEGATIVE (NEG); NITRITE,URINE NEGATIVE (NEG); PH,URINE 7.5; PROTEIN,URINE 30 mg/dL (NEG-TRACE)
[2017-03-30] MEDS ORDERED: ACETAMINOPHEN 325 MG TABLET. PO PRN (20:45)
[2017-03-30 20:49] LABS: BACTERIA,URINE MODERATE /HPF (0-FEW); RBC,URINE OCC /HPF (0-2); SQUAMOUS EPITHELIAL CELL,UR MANY /LPF
--- NOTE | 2017-03-30 20:52 | PHYS DOC ---
Past Medical History Past Medical History: Anemia, Hypertension, Sciatica Additional Past Medical Histor: OSTEOARTHRITIS Past Surgical History: Cholecystectomy, Hysterectomy Additional Past Surgical Histo: R KNEE,R ANKLE, L KNEE TOTAL REPLACEMENT Alcohol Use: None Drug Use: None Adult General Chief Complaint Chief Complaint: POST-OP PROBLEM HPI HPI Patient is a 56 year old F who presents with left knee pain, swelling, purulent drainage and decreased range of motion for the past couple days. Patient had a left total knee replacement done on March [address] Chapman and was seen in his office today by his PA for increased pain and had a bandage change. Patient came the emergency room for worsening pain and fevers. Patient states she did fever 102 at home. Patient denies any nausea/vomiting/diarrhea. Patient has a chest pressures breath. Patient has no other complaints. Pertinent exam findings: Left knee has an midline incision with swelling and erythema no purulent drainage, no signs of compartment syndrome, left dorsal pedis pulse present, left toes have cap refill less than 2 seconds ED course: Patient was seen and examined in the emergency room a septic workup was ordered 2017: Discussed CC/HP/PMH with Dr. Chapman and recommends admit and place him on consult and we'll send in his PA to tap the knee and does not want to start antibiotics until the tap is done 2030: Discussed CC/HP/PMH with Dr. Amezquita and recommends admit but wants the knee tapped tonight 2038: Called Dr. Chapman and explained Dr. Amezquita concerns, he would like me to tap the knee tonight and then start antibiotics he would like anaerobic/aerobic/ fungal/ASB, so count with differential, culture ordered 2129: Knee was aspirated and antibiotics were started after the aspiration Pertinent exam findings: WBC 19 MDM: After reviewing the chart, CC/HPI/PMH, physical exam, [lab results], I have concerns that the patient may have an infected left total knee therefore will admit the patient for further evaluation and the patient will have a joint aspirated and and antibiotics started. Review of Systems Review of Systems GEN: Denies fevers, chills, sweats HEENT: Denies blurred vision, sore throat CV: Denies chest pain RESP: Denies shortness of air, cough GI: Denies n/v/d NEURO: Denies confusion, dizziness MSK: Left knee pain Current Medications Current Medications Current Medications Medications (Trade) Dose Ordered Sig/Angie Start Time Stop Time Status Last Admin Dose Admin Acetaminophen (Tylenol) 1,000 mg 1X ONCE 03/30/17 19:45 03/30/17 19:46 DC 03/30/17 19:36 1,000 MG Ondansetron HCl (Zofran) 4 mg 1X ONCE 03/30/17 19:00 03/30/17 19:01 DC 03/30/17 19:01 4 MG Sodium Chloride 1,000 ml @ 1,000 mls/hr 1X ONCE 03/30/17 19:00 03/30/17 19:59 DC 03/30/17 19:02 1,000 MLS/HR Allergies Allergies Allergies Coded Allergies Type Severity Reaction Last Updated Verified hydrocodone Adverse Reaction Intermediate Nausea and Vomiting 03/17/17 Yes Physical Exam Physical Exam GEN.: No apparent distress. Alert and oriented. HEENT: Head is normocephalic, atraumatic NECK: Supple. LUNGS: CTAB. HEART: RRR, S1, S2 present. Peripheral pulses intact ABDOMEN: Soft, nontender. Positive bowel sounds. EXTREMITIES: Without any cyanosis, Left knee has an midline incision with swelling and erythema no purulent drainage, no signs of compartment syndrome, left dorsal pedis pulse present, left toes have cap refill less than 2 seconds NEUROLOGIC: Normal speech, normal tone PSYCHIATRIC: Normal affect, normal mood. SKIN: No ulcerations Current Patient Data Vital Signs Vital Signs Date Time Temp Pulse Resp B/P (MAP) Pulse Ox O2 Delivery O2 Flow Rate FiO2 03/30/17 20:05 94 153/71 (98) 92 Room Air 03/30/17 19:05 21 03/30/17 18:00 99.0 99.0 Lab Values Laboratory Tests Test 03/30/17 18:20 03/30/17 20:05 White Blood Count 19.3 x10^3/uL (4.0-11.0) H Red Blood Count 4.55 x10^6/uL (3.50-5.40) Hemoglobin 12.6 g/dL (12.0-15.5) Hematocrit 37.9 % (36.0-47.0) Mean Corpuscular Volume 83 fL (79-100) Mean Corpuscular Hemoglobin 28 pg (25-35) Mean Corpuscular Hemoglobin Concent 33 g/dL (31-37) Red Cell Distribution Width 13.8 % (11.5-14.5) Platelet Count 437 x10^3/uL (140-400) H Neutrophils (%) (Auto) 90 % (31-73) H Lymphocytes (%) (Auto) 6 % (24-48) L Monocytes (%) (Auto) 4 % (0-9) Eosinophils (%) (Auto) 0 % (0-3) Basophils (%) (Auto) 0 % (0-3) Neutrophils # (Auto) 17.3 x10^3uL (1.8-7.7) H Lymphocytes # (Auto) 1.2 x10^3/uL (1.0-4.8) Monocytes # (Auto) 0.7 x10^3/uL (0.0-1.1) Eosinophils # (Auto) 0.1 x10^3/uL (0.0-0.7) Basophils # (Auto) 0.0 x10^3/uL (0.0-0.2) Segmented Neutrophils % 83 % (35-66) H Band Neutrophils % 8 % (0-9) Lymphocytes % 5 % (24-48) L Monocytes % 4 % (0-10) Platelet Estimate Adequate (ADEQUATE) Sodium Level 138 mmol/L (136-145) Potassium Level 3.8 mmol/L (3.5-5.1) Chloride Level 99 mmol/L (98-107) Carbon Dioxide Level 28 mmol/L (21-32) Anion Gap 11 (6-14) Blood Urea Nitrogen 14 mg/dL (7-20) Creatinine 0.8 mg/dL (0.6-1.0) Estimated GFR (Cockcroft-Gault) 74.2 BUN/Creatinine Ratio 18 (6-20) Glucose Level 142 mg/dL (70-99) H Calcium Level 9.4 mg/dL (8.5-10.1) Total Bilirubin 0.5 mg/dL (0.2-1.0) Aspartate Amino Transferase (AST) 14 U/L (15-37) L Alanine Aminotransferase (ALT) 20 U/L (14-59) Alkaline Phosphatase 89 U/L (46-116) C-Reactive Protein, Quantitative 43.9 mg/L (0-3.3) H Total Protein 7.4 g/dL (6.4-8.2) Albumin 3.8 g/dL (3.4-5.0) Albumin/Globulin Ratio 1.1 (1.0-1.7) Lipase 171 U/L (73-393) Urine Collection Type Unknown Urine Color Yellow Urine Clarity Cloudy Urine pH 7.5 Urine Specific [place] 1.020 Urine Protein 30 mg/dL (NEG-TRACE) Urine Glucose (UA) Negative mg/dL (NEG) Urine Ketones (Stick) Negative mg/dL (NEG) Urine Blood Negative (NEG) Urine Nitrite Negative (NEG) Urine Bilirubin Negative (NEG) Urine Urobilinogen Dipstick 1.0 mg/dL (0.2 mg/dL) Urine Leukocyte Esterase Small (NEG) Urine RBC Occ /HPF (0-2) Urine WBC 1-4 /HPF (0-4) Urine Squamous Epithelial Cells Many /LPF Urine Amorphous Sediment Present /HPF Urine Bacteria Moderate /HPF (0-FEW) Laboratory Tests 03/30/17 18:20 Laboratory Tests 03/30/17 18:20 EKG EKG [] Radiology/Procedures Radiology/Procedures [] Course & Med Decision Making Course & Med Decision Making Pertinent Labs and Imaging studies reviewed. (See chart for details) Procedure aspiration of the left knee Dictation possible joint infection Consent was obtained from the patient prior to the procedure timeout was performed Description: Area was prepped in a sterile fashion using chlorhexinol, followed by Betadine followed by chlorhexidine. 2 mL of 1% lidocaine were injected. Under sterile technique using a lateral approach a 16-gauge needle approximately 1 mL of joint fluid was aspirated, it was clear yellow nonpurulent minimal bleeding. Patient tolerated procedure well no complications The 1 mL joint fluid was sent for cultures Procedure was done by Dr. Mag Veronica Aragon Disclaimer Margo Disclaimer This electronic medical record was generated, in whole or in part, using a voice recognition dictation system. Departure Departure Impression: Primary Impression: Left knee pain Additional Impression: Leukocytosis Admitting Physician: Jose Manuel Amezquita Condition: STABLE Referrals: BUSHRA IGLESIAS MD (PCP) Problem Qualifiers Primary Impression: Left knee pain Chronicity: acute Qualified Codes: M25.562 - Pain in left knee Additional Impression: Leukocytosis Leukocytosis type: unspecified Qualified Codes: D72.829 - Elevated white blood cell count, unspecified STEPH AVILES DO Mar 30, 2017 20:52
[2017-03-30] MEDS ORDERED: LIDOCAINE 2% 20 ML VIAL. ONE (21:02)
[2017-03-30 21:06] LABS: PLT ESTIMATE ADEQUATE (ADEQUATE)
[2017-03-30] MEDS ORDERED: HYDROmorphone 2 MG/ML VIAL ONE (21:12)
[2017-03-30] MEDS ORDERED: VANCOMYCIN 2 GM in IV NORMAL SALINE 500ML BAG 500 ML IV ONE (22:00)
[2017-03-30 22:15] VITALS: BP 144/62
[2017-03-30] MEDS: VANCOMYCIN PER PHARMACY MC PRN (22:20)
[2017-03-31] MEDS: ONDANSETRON PF 4 MG/2 ML VIAL. IV PRN ×3 (01:09→17:38)
[2017-03-31] MEDS: fentaNYL PF VIAL 100 MCG/2 ML VIAL IV PRN ×6 (01:10→17:48)
[2017-03-31] MEDS: PIPERACILLIN/TAZOBACTAM 4.5 GM in IV NORMAL SALINE 100ML 100 ML IV SCH ×4 (01:11→17:48)
[2017-03-31 03:12] VITALS: BP 116/54
[2017-03-31 04:58] LABS: BASO % 0 % (0-3); EOS % 0 % (0-3); HEMATOCRIT 32.5 % (36.0-47.0); HEMOGLOBIN 10.7 g/dL (12.0-15.5); LYMPH # 1.7 x10^3/uL (1.0-4.8); LYMPH % 11 % (24-48); MEAN CORPUSCULAR HEMOGLOBIN 28 pg (25-35); MEAN CORPUSCULAR HGB CONC 33 g/dL (31-37); MEAN CORPUSCULAR VOLUME 84 fL (79-100); MONO % 6 % (0-9); NEUT % 82 % (31-73); PLATELET COUNT 324 x10^3/uL (140-400); RED BLOOD COUNT 3.86 x10^6/uL (3.50-5.40); WHITE BLOOD COUNT 15.3 x10^3/uL (4.0-11.0)
[2017-03-31 05:19] LABS: CALCIUM 8.6 mg/dL (8.5-10.1); CREATININE 0.7 mg/dL (0.6-1.0); GFR 86.6
[2017-03-31 07:30] VITALS: BP 145/63
--- NOTE | 2017-03-31 10:14 | ACF ---
Admission Forms Criteria MUSCULOSKELETAL DISEASE GRG Clinical Indications for Admission to Inpatient Care (Place 'X' for any and all applicable criteria): Hospital admission is needed for appropriate care of the patient because of 1 or more of the following: [ ]I. Fracture, dislocation, or other musculoskeletal injury requiring inpatient care(medical) as indicated by 1 or more of the following(4)(5)(6)(7) [ ]a) Vertebral fracture requiring observation for instability or neurologic compromise (8) [ ]b) Compartment syndrome (proven or cannot be ruled out during observation level of care) (9) [ ]c) Limb-threatening injury [ ]d) Major injury requiring inpatient stabilization such as traction initiation or external fixation before internal fixation or closure of complex or open fracture [ ]e) Major injury requiring inpatient treatment after emergency or observation level care (as appropriate) [ ]f) Severe pain requiring acute inpatient management [ ]g) Injury with suspicion of abuse or neglect (eg., child, dependent elderly) [X]II. Newly diagnosed or suspected bone, joint, or orthopedic device infection (e.g., osteomyelitis, septic arthritis) needing 1 or more of the following(1)(2)(3) [X]a) IV antibiotics that cannot be initiated in other than inpatient setting (e.g., patient too unstable or home infusion not available) [ ]b) Device removal or replacement [ ]c) Bone or soft tissue debridement [ ]d) Joint drainage (drain placement or repetitive aspirations) [ ]III. Severe rheumatologic disease (e.g., systemic lupus erythematosus, rheumatoid arthritis) with complications or comorbidities (Also use Optimal Recovery Care Criteria or General Recovery Criteria as appropriate on the basis of predominant condition), including 1 or more of the following( 10)(11)(12)(13) [ ]a) Severe infection (e.g., RECREATION DIRECTOR infection, sepsis) (14) [ ]b) Respiratory complications, including 1 or more of the following : [ ]i) Pleural effusion with respiratory compromise [ ]ii) Pulmonary hypertension with congestive failure [ ]iii) Respiratory failure [ ]iv) Pulmonary hemorrhage (15) [ ]c) Hematologic disease, including 1 or more of the following: [ ]i) Coagulopathy with bleeding [ ]ii) Thrombosis with hypercoagulable state [ ]iii) Thrombotic thrombocytopenic purpura [ ]d) Cerebritis with seizures, psychosis, or other severe abnormalities [ ]e) Vertebral destruction with monitoring needed for cervical myelopathy& possible respiratory compromise [ ]f) Exacerbation that requires inpatient treatment (e.g., intravenous immunosuppression) (16) [ ]g) Acute renal failure [ ]h) Cerebritis with seizures, psychosis, Altered mental status, or other neurologic abnormalities [ ]i) Pericardial effusion with tamponade [ ]j) Vertebral destruction, with monitoring needed for cervical myelopathy and possible respiratory compromise [ ]IV. Severe vasculitis with complications or comorbidities (Also use Optimal Recovery Care Criteria General Recovery Criteria as appropriate on the basis of predominant condition), including 1 or more of the following(11)(12)(17)(18)(19)(20) [ ]a) Exacerbation that requires inpatient treatment (e.g., intravenous immunosuppression) (19)(21) [ ]b) Pulmonary hemorrhage (15) [ ]c) RECREATION DIRECTOR vasculitis with seizures, psychosis, Altered mental status that is severe or persistent, or other severe abnormalities (22) [ ]d) Cerebral infarction [ ]e) Gastrointestinal ischemia [ ]f) Gangrene or threatened amputation [ ]g) Renal failure (16) [ ]h) Other significant complications of vasculitis ( eg., tissue or organ ischemia, organ dysfunction ) [ ]V. Severe myopathy as indicated by 1 or more of the following (28)(29) [ ]a) New onset of airway compromise or inability to swallow [ ]b) Respiratory deterioration with observation needed for impending respiratory failure [ ]c) Exacerbation that requires inpatient treatment (e.g., intravenous immunosuppression) [ ]. Severe crystal gout (arthropathy) indicated by 1 or more of the following (23)(24) [ ]a) Severe pain requiring acute inpatient management [ ]b) Exacerbation that requires inpatient treatment (e.g., intravenous treatment) [ ]VII.Rhabdomyolysis and 1 or more of the following (25)(26)(27) [ ]a) Acute renal failure [ ]b) Need for intravenous hydration after emergency or observation level care (as appropriate) [ ]c) Inability to maintain oral hydration [ ]d) Change in mental status [ ]e) Electrolyte abnormality that remains after emergency or observation level care (as appropriate) [ ]VIII Post amputation complication, as indicated by ANY ONE of the following [ ]a) Infection [ ]b) Dehiscence [ ]c) Myodesis failure [ ]IX. Severe pain requiring acute inpatient management due to musculoskeletal condition [ ]X. Musculoskeletal Disease and ALL of the following: [ ]a) Symptom or finding for which emergency and observation care have failed or are not considered appropriate (Use General Criteria: Observation Care as appropriate) [ ]b) Presence of ANY ONE of the following [ ]i) A General Admission Criteria [ ]ii) A Pediatric General Admission Criteria The original [facility] [employer] content created by [facility] [employer] has been revised. The portions of the content which have been revised are identified through the use of italic text or in bold, and [facility] has neither reviewed nor approved the modified material. All other unmodified content is copyright [facility]. Please see references footnoted in the original [facility] edition 2016 Admission Criteria Met?: Yes SHERYL KIRBY Mar 31, 2017 10:14
[2017-03-31] MEDS: VANCOMYCIN 1.5 GM in IV NORMAL SALINE 500ML BAG 500 ML IV SCH ×2 (10:38→22:51)
[2017-03-31 10:55] VITALS: BP 131/55
[2017-03-31] MEDS ORDERED: ALPRAZolam 0.25 MG TABLET PO PRN (11:15)
[2017-03-31] MEDS: FERROUS SULFATE 325 MG TABLET. PO SCH (11:41)
[2017-03-31] MEDS: PANTOPRAZOLE 40 MG TABLET.DR. PO SCH (11:41)
[2017-03-31] MEDS: CALCIUM CARB/VIT D3 500/200 TABLET. PO SCH ×2 (11:41→17:37)
[2017-03-31] MEDS: LOSARTAN POTASSIUM 50 MG TABLET. PO SCH (11:42)
[2017-03-31] MEDS: ENOXAPARIN 40 MG/0.4 ML SYRINGE. SQ SCH ×2 (11:42→20:22)
[2017-03-31] MEDS: ALBUTEROL SULFATE 2.5 MG/3 ML NEBU. NEB SCH ×3 (12:00→20:40)
[2017-03-31] MEDS ORDERED: NON FORMULARY ITEM (Albuterol Sulfate (Ventolin Hfa Inhaler) 2 PUFF) INH SCH (12:00)
[2017-03-31] MEDS: VANCOMYCIN PER PHARMACY MC PRN (12:18)
[2017-03-31] MEDS: traMADol 50 MG TABLET PO PRN ×2 (13:45→20:21)
--- NOTE | 2017-03-31 14:22 | HP ---
ADMIT DATE: 03/30/2017 CHIEF COMPLAINT: Left knee pain. HISTORY OF PRESENT ILLNESS AND HOSPITAL COURSE: This patient is a 56-year-old female who had left total knee replacement on 03/17/2017, began having increasing pain at the knee replacement site with redness and drainage as well as fever and increasing pain over the last several days. She was evaluated by the physician group fitness assistant department head in the orthopedics' office and deemed stable, but had increasing symptoms; therefore, came to the Emergency Room. She describes her pain as unrelenting and located in the posterior part of her left knee, worse with mobility. The patient was seen by Emergency Room physician and found to be afebrile with a temperature of 99. She did have decreased white count with a mild left shift, 19,300 with 90% neutrophils and 8% bands. The patient's blood sugar was slightly elevated as well at 142. Remainder of her labs were unremarkable. She did have a small leukocyte esterase in her UA, but negative nitrites. During ER evaluation, aspiration of the knee was done with clear nonbloody fluid sent for culture. Antibiotics were administered in the form of piperacillin and vancomycin. Due to severity of symptoms, the patient was admitted for further orthopedic evaluation and continued supportive care and pain control. PAST MEDICAL HISTORY: Significant for most recently total knee replacement on 03/17/2017 chronically, hypertension, mild generalized anxiety, osteoarthritis, allergic rhinitis, gastroesophageal reflux disease and history of reactive airway disease. FAMILY HISTORY: Noncontributory. SOCIAL HISTORY: The patient has never smoked. She does not use alcohol. She is . PAST SURGICAL HISTORY: Significant for breast reduction, tonsillectomy, cholecystectomy, vaginal hysterectomy and right ankle surgery. ALLERGIES: THE PATIENT EXHIBITS INTOLERANCE TO MEDICATIONS INCLUDING NORCO CAUSING GI UPSET AND RANCHO INHIBITOR CAUSING COUGH. REVIEW OF SYSTEMS: The patient denies any nausea, vomiting, diarrhea, cough. She has had chills and apparent fever as well as significant left knee pain with some purulent drainage noted by patient. PHYSICAL EXAMINATION: GENERAL: This is a moderately obese female in mild distress. She is alert and oriented x 3. HEENT: Benign. NECK: Supple, without JVD or bruit. CARDIAC: Regular rate and rhythm. LUNGS: Clear. ABDOMEN: Soft, nontender, without masses. EXTREMITIES: There are 2+ pulses bilaterally. She does have mild redness at the incision sites without generalized redness about the knee. She does have normal postoperative swelling. She has acute tenderness with manipulation of knee and palpation of posterior knee. There is minimal heat from the joint and minimal drainage noted from wound. There is some increased redness at the distal third of the wound. ASSESSMENT: 1. Leukocytosis. 2. Left knee pain. 3. Suspected superficial knee infection. 4. Suspected possible infected hardware. PLAN: To proceed with IV antibiotics and orthopedic consultation. Await knee aspiration cultures and treat accordingly. Proceed with PT and OT modalities as able. DIANN ANDRADE MD DR: MIKE/chaparro JOB#: [id number] / [id number]
[2017-03-31 14:25] VITALS: BP 152/69
--- NOTE | 2017-03-31 15:39 | PDOC2 ---
CONSULT Date of Consult Date of Consult DATE: 03/31/17 TIME: 13:00 Reason for Consult Reason for Consult: left knee possible infection Identification/Chief Complaint Chief Complaint left knee pain Source Source: Chart review, Patient History of Present Illness Reason for Visit: Ms. Morales is a 56 year old female who had left total knee arthroplasty on . She was seen in the clinic yesterday morning and her incision was benign and pain has been improving. She did have mild calf pain and was sent for LLE Doppler, which was negative for DVT. Late yesterday afternoon she developed a fever, began vomiting, and had increased left knee pain. She presented to the [facility] ER where the left knee was aspirated and sent for gram stain and cultures. Vancomycin and Zosyn were started after aspiration. Left knee pain is now improving, after pain medication, but she remains nauseous. Past Medical History Cardiovascular: HTN Pulmonary: Asthma GI: GERD Musculoskeletal: Osteoarthritis Past Surgical History Past Surgical History: Total knee replacement (left-03/17/17), Hysterectomy, Other Family History Family History: Diabetes, Heart Disease, Osteo Arthiritis Social History ALCOHOL: occassional Drugs: None Current Problem List Problem List Problems Medical Problems: (1) Left knee pain Status: Acute (2) Leukocytosis Status: Acute Current Medications Current Medications Current Medications Ondansetron HCl (Zofran) 4 mg STK-MED ONCE .ROUTE ; Start 03/30/17 at 18:45; Stop 03/30/17 at 18:46; Status DC Sodium Chloride 1,000 ml @ 1,000 mls/hr 1X ONCE IV Last administered on 19:02; Start 03/30/17 at 19:00; Stop 03/30/17 at 19:59; Status DC Ondansetron HCl (Zofran) 4 mg 1X ONCE IV Last administered on 03/30/17 19:01 ; Start 03/30/17 at 19:00; Stop 03/30/17 at 19:01; Status DC Acetaminophen (Tylenol) 1,000 mg 1X ONCE PO Last administered on 03/30/17 19: 36; Start 03/30/17 at 19:45; Stop 03/30/17 at 19:46; Status DC Ondansetron HCl (Zofran) 4 mg PRN Q8HRS PRN IV NAUSEA/VOMITING Last administered on 03/31/17 09:19; Start 03/30/17 at 20:45; Stop 03/31/17 at 20:44 Fentanyl Citrate (Fentanyl 2ml Vial) 50 mcg PRN Q2HR PRN IV PAIN Last administered on 03/31/17 11:41; Start 03/30/17 at 20:45; Stop 03/31/17 at 20:44 Acetaminophen (Tylenol) 650 mg PRN Q4HRS PRN PO FEVER; Start 03/30/17 at 20:45 ; Stop 03/31/17 at 20:44 Lidocaine HCl 20 ml STK-MED ONCE .ROUTE ; Start 03/30/17 at 21:02; Stop at 21:03; Status DC Hydromorphone HCl (Dilaudid) 2 mg STK-MED ONCE .ROUTE ; Start 03/30/17 at 21:12 ; Stop 03/30/17 at 21:13; Status DC Vancomycin HCl (Vanco Per Pharmacy) 1 each PRN DAILY PRN MC SEE COMMENTS Last administered on 03/31/17 12:18; Start 03/30/17 at 22:00 Piperacillin Sod/ Tazobactam Sod 4.5 gm/Sodium Chloride 100 ml @ 200 mls/hr Q6HRS IV Last administered on 03/31/17 13:08; Start 03/31/17 at 00:00 Vancomycin HCl 2 gm/Sodium Chloride 500 ml @ 250 mls/hr 1X ONCE IV Last administered on 03/30/17 22:52; Start 03/30/17 at 22:00; Stop 03/30/17 at 23:59 ; Status DC Vancomycin HCl 1.5 gm/Sodium Chloride 500 ml @ 250 mls/hr Q12H IV Last administered on 03/31/17 10:38; Start 03/31/17 at 10:30 Vancomycin HCl 1 each 1X ONCE MC ; Start 04/01/17 at 10:00; Stop 04/01/17 at 10 :01 Alprazolam (Xanax) 0.25 mg PRN Q6HRS PRN PO ANXIETY / AGITATION; Start at 11:15 Aspirin (Ecotrin) 325 mg BID PO ; Start 03/31/17 at 21:00 Celecoxib (CeleBREX) 200 mg DAILY PO ; Start 04/01/17 at 09:00 Ferrous Sulfate (Feosol) 325 mg DAILY PO Last administered on 03/31/17 11:41; Start 03/31/17 at 12:00 Pantoprazole Sodium (Protonix) 40 mg DAILY PO Last administered on 03/31/17 11 :41; Start 03/31/17 at 11:00 Tramadol HCl (Ultram) 50 mg PRN Q6HRS PRN PO PAIN Last administered on 13:45; Start 03/31/17 at 11:15 Non-Formulary Medication 2 puff Q4HRS INH ; Start 03/31/17 at 12:00; Status UNV Calcium/Vitamin D (Oscal D 500mg/ 200uts) 1 tab BIDWMEALS PO Last administered on 03/31/17 11:41; Start 03/31/17 at 12:00 Non-Formulary Medication 1 each DAILY PO ; Start 04/01/17 at 09:00; Stop at 09:00; Status DC Multivitamins (Thera M Plus) 1 tab DAILY PO ; Start 04/01/17 at 09:00 Losartan Potassium (Cozaar) 100 mg DAILY PO Last administered on 03/31/17 11: 42; Start 03/31/17 at 12:00 Enoxaparin Sodium (Lovenox 40mg Syringe) 40 mg BID SQ Last administered on 03/31 11:42; Start 03/31/17 at 12:00 Albuterol Sulfate (Ventolin Neb Soln) 2.5 mg Q4HRS NEB ; Start 03/31/17 at 12:00 Ondansetron HCl (Zofran) 4 mg PRN Q6HRS PRN IV NAUSEA/VOMITING; Start 04/01/17 at 07:00; Stop 04/02/17 at 06:59 Fentanyl Citrate (Fentanyl 2ml Vial) 25 mcg PRN Q5MIN PRN IV MILD PAIN; Start 04/01/17 at 07:00; Stop 04/02/17 at 06:59 Fentanyl Citrate (Fentanyl 2ml Vial) 50 mcg PRN Q5MIN PRN IV MODERATE PAIN; Start 04/01/17 at 07:00; Stop 04/02/17 at 06:59 Ringer's Solution 1,000 ml @ 30 mls/hr Q24H IV ; Start 04/01/17 at 07:00; Stop 04/01/17 at 18:59 Lidocaine HCl 2 ml PRN 1X PRN ID PRIOR TO IV START; Start 04/01/17 at 07:00; Stop 04/02/17 at 06:59 Prochlorperazine Edisylate (Compazine) 5 mg PACU PRN PRN IV NAUSEA, MRX1; Start 04/01/17 at 07:00; Stop 04/02/17 at 06:59 Active Scripts Active Reported Tramadol Hcl 50 Mg Tablet 1-2 Tab PO PRN Q4-6HRS PRN LAST DOSE GIVEN: DATE: 03/20/2017 TIME: 1230 pm Ferrous Sulfate 325 Mg Tablet 1 Tab PO DAILY LAST DOSE GIVEN: DATE: 03/20/2017 TIME: 9 am Aspirin Ec (Aspirin) 325 Mg Tablet.dr 325 Mg PO BID LAST DOSE GIVEN: DATE: 03/20/2017 TIME: 9 am Xanax (Alprazolam) 0.25 Mg Tablet 0.25 Mg PO PRN Q6HRS PRN Meds not given this hospital admission. May resume home medications as approved by Physician. Ventolin Hfa Inhaler (Albuterol Sulfate) 18 Gm Hfa.aer.ad 2 Puff INH Q4HRS Meds not given this hospital admission. May resume home medications as approved by Physician. Calcium 500-Vit D3 600 Tablet (Calcium Carbonate/Vitamin D3) 1 Each Tablet 1 Each PO BID LAST DOSE GIVEN: DATE: 03/20/2017 TIME: 9 am Centrum Silver Tablet (Multivits-Min/Fa/Lycopene/Lut) 1 Each Tablet 1 Each PO DAILY LAST DOSE GIVEN: DATE: 03/20/2017 TIME: 9 am Glucosamine-Msm Caplet (Glucosamine Sulfate/Msm) 1 Each Tablet 1 Each PO DAILY Meds not given this hospital admission. May resume home medications as approved by Physician. Celebrex (Celecoxib) 200 Mg Capsule 1 Cap PO DAILY LAST DOSE GIVEN: DATE: 03/20/2017 TIME: 9 am Diovan (Valsartan) 160 Mg Tablet 160 Mg PO DAILY LAST DOSE GIVEN: DATE: 03/20/2017 TIME: 9 am Pantoprazole Sodium 40 Mg Tablet.dr 40 Mg PO DAILY LAST DOSE GIVEN: DATE: 03/20/2017 TIME: 7 am Allergies Allergies: Coded Allergies: hydrocodone (Verified Adverse Reaction, Intermediate, Nausea and Vomiting , 5/30/17) Physical Exam General: Alert, Oriented X3, Cooperative, No acute distress HEENT: Atraumatic, EOMI Lungs: Normal air movement Heart: Regular rate Abdomen: Soft Extremities: No clubbing, No cyanosis, Normal pulses Skin: No rashes, No breakdown, Other (Left knee shows midline incision with steri strips intact. There is no drainage. Very mild erythema, but no obvious sign of infection) Neuro: Normal speech, Sensation intact Psych/Mental Status: Mental status NL, Mood NL MUSCULOSKELETAL: Other (Left knee incision as described above. Mild warmth and erythema consistent with recent total knee replacement. Thigh and calf are soft. Calf mildly tender to palpation, negative Raine's sign. Good dorsiflexion and plantarflexion with no sign of neurovascular injury. Neurovascularly intact. ) Vitals VITALS Vital Signs Date Time Temp Pulse Resp B/P (MAP) Pulse Ox O2 Delivery O2 Flow Rate FiO2 03/31/17 14:25 99.7 74 20 152/69 (96) 96 Room Air 99.7 Labs Labs Laboratory Tests Test 03/30/17 18:20 03/30/17 20:05 03/31/17 04:00 White Blood Count 19.3 x10^3/uL (4.0-11.0) 15.3 x10^3/uL (4.0-11.0) Red Blood Count 4.55 x10^6/uL (3.50-5.40) 3.86 x10^6/uL (3.50-5.40) Hemoglobin 12.6 g/dL (12.0-15.5) 10.7 g/dL (12.0-15.5) Hematocrit 37.9 % (36.0-47.0) 32.5 % (36.0-47.0) Mean Corpuscular Volume 83 fL (79-100) 84 fL (79-100) Mean Corpuscular Hemoglobin 28 pg (25-35) 28 pg (25-35) Mean Corpuscular Hemoglobin Concent 33 g/dL (31-37) 33 g/dL (31-37) Red Cell Distribution Width 13.8 % (11.5-14.5) 14.0 % (11.5-14.5) Platelet Count 437 x10^3/uL (140-400) 324 x10^3/uL (140-400) Neutrophils (%) (Auto) 90 % (31-73) 82 % (31-73) Lymphocytes (%) (Auto) 6 % (24-48) 11 % (24-48) Monocytes (%) (Auto) 4 % (0-9) 6 % (0-9) Eosinophils (%) (Auto) 0 % (0-3) 0 % (0-3) Basophils (%) (Auto) 0 % (0-3) 0 % (0-3) Neutrophils # (Auto) 17.3 x10^3uL (1.8-7.7) 12.5 x10^3uL (1.8-7.7) Lymphocytes # (Auto) 1.2 x10^3/uL (1.0-4.8) 1.7 x10^3/uL (1.0-4.8) Monocytes # (Auto) 0.7 x10^3/uL (0.0-1.1) 0.9 x10^3/uL (0.0-1.1) Eosinophils # (Auto) 0.1 x10^3/uL (0.0-0.7) 0.1 x10^3/uL (0.0-0.7) Basophils # (Auto) 0.0 x10^3/uL (0.0-0.2) 0.0 x10^3/uL (0.0-0.2) Segmented Neutrophils % 83 % (35-66) Band Neutrophils % 8 % (0-9) Lymphocytes % 5 % (24-48) Monocytes % 4 % (0-10) Platelet Estimate Adequate (ADEQUATE) Erythrocyte Sedimentation Rate 30 (0-25) Sodium Level 138 mmol/L (136-145) 139 mmol/L (136-145) Potassium Level 3.8 mmol/L (3.5-5.1) 4.0 mmol/L (3.5-5.1) Chloride Level 99 mmol/L (98-107) 103 mmol/L (98-107) Carbon Dioxide Level 28 mmol/L (21-32) 28 mmol/L (21-32) Anion Gap 11 (6-14) 8 (6-14) Blood Urea Nitrogen 14 mg/dL (7-20) 12 mg/dL (7-20) Creatinine 0.8 mg/dL (0.6-1.0) 0.7 mg/dL (0.6-1.0) Estimated GFR (Cockcroft-Gault) 74.2 86.6 BUN/Creatinine Ratio 18 (6-20) Glucose Level 142 mg/dL (70-99) 118 mg/dL (70-99) Calcium Level 9.4 mg/dL (8.5-10.1) 8.6 mg/dL (8.5-10.1) Total Bilirubin 0.5 mg/dL (0.2-1.0) Aspartate Amino Transf (AST/SGOT) 14 U/L (15-37) Alanine Aminotransferase (ALT/SGPT) 20 U/L (14-59) Alkaline Phosphatase 89 U/L (46-116) C-Reactive Protein, Quantitative 43.9 mg/L (0-3.3) Total Protein 7.4 g/dL (6.4-8.2) Albumin 3.8 g/dL (3.4-5.0) Albumin/Globulin Ratio 1.1 (1.0-1.7) Lipase 171 U/L (73-393) Urine Collection Type Unknown Urine Color Yellow Urine Clarity Cloudy Urine pH 7.5 Urine Specific [place] 1.020 Urine Protein 30 mg/dL (NEG-TRACE) Urine Glucose (UA) Negative mg/dL (NEG) Urine Ketones (Stick) Negative mg/dL (NEG) Urine Blood Negative (NEG) Urine Nitrite Negative (NEG) Urine Bilirubin Negative (NEG) Urine Urobilinogen Dipstick 1.0 mg/dL (0.2 mg/dL) Urine Leukocyte Esterase Small (NEG) Urine RBC Occ /HPF (0-2) Urine WBC 1-4 /HPF (0-4) Urine Squamous Epithelial Cells Many /LPF Urine Amorphous Sediment Present /HPF Urine Bacteria Moderate /HPF (0-FEW) Laboratory Tests Test 03/30/17 18:20 03/30/17 20:05 03/31/17 04:00 White Blood Count 19.3 x10^3/uL (4.0-11.0) 15.3 x10^3/uL (4.0-11.0) Red Blood Count 4.55 x10^6/uL (3.50-5.40) 3.86 x10^6/uL (3.50-5.40) Hemoglobin 12.6 g/dL (12.0-15.5) 10.7 g/dL (12.0-15.5) Hematocrit 37.9 % (36.0-47.0) 32.5 % (36.0-47.0) Mean Corpuscular Volume 83 fL (79-100) 84 fL (79-100) Mean Corpuscular Hemoglobin 28 pg (25-35) 28 pg (25-35) Mean Corpuscular Hemoglobin Concent 33 g/dL (31-37) 33 g/dL (31-37) Red Cell Distribution Width 13.8 % (11.5-14.5) 14.0 % (11.5-14.5) Platelet Count 437 x10^3/uL (140-400) 324 x10^3/uL (140-400) Neutrophils (%) (Auto) 90 % (31-73) 82 % (31-73) Lymphocytes (%) (Auto) 6 % (24-48) 11 % (24-48) Monocytes (%) (Auto) 4 % (0-9) 6 % (0-9) Eosinophils (%) (Auto) 0 % (0-3) 0 % (0-3) Basophils (%) (Auto) 0 % (0-3) 0 % (0-3) Neutrophils # (Auto) 17.3 x10^3uL (1.8-7.7) 12.5 x10^3uL (1.8-7.7) Lymphocytes # (Auto) 1.2 x10^3/uL (1.0-4.8) 1.7 x10^3/uL (1.0-4.8) Monocytes # (Auto) 0.7 x10^3/uL (0.0-1.1) 0.9 x10^3/uL (0.0-1.1) Eosinophils # (Auto) 0.1 x10^3/uL (0.0-0.7) 0.1 x10^3/uL (0.0-0.7) Basophils # (Auto) 0.0 x10^3/uL (0.0-0.2) 0.0 x10^3/uL (0.0-0.2) Segmented Neutrophils % 83 % (35-66) Band Neutrophils % 8 % (0-9) Lymphocytes % 5 % (24-48) Monocytes % 4 % (0-10) Platelet Estimate Adequate (ADEQUATE) Erythrocyte Sedimentation Rate 30 (0-25) Sodium Level 138 mmol/L (136-145) 139 mmol/L (136-145) Potassium Level 3.8 mmol/L (3.5-5.1) 4.0 mmol/L (3.5-5.1) Chloride Level 99 mmol/L (98-107) 103 mmol/L (98-107) Carbon Dioxide Level 28 mmol/L (21-32) 28 mmol/L (21-32) Anion Gap 11 (6-14) 8 (6-14) Blood Urea Nitrogen 14 mg/dL (7-20) 12 mg/dL (7-20) Creatinine 0.8 mg/dL (0.6-1.0) 0.7 mg/dL (0.6-1.0) Estimated GFR (Cockcroft-Gault) 74.2 86.6 BUN/Creatinine Ratio 18 (6-20) Glucose Level 142 mg/dL (70-99) 118 mg/dL (70-99) Calcium Level 9.4 mg/dL (8.5-10.1) 8.6 mg/dL (8.5-10.1) Total Bilirubin 0.5 mg/dL (0.2-1.0) Aspartate Amino Transf (AST/SGOT) 14 U/L (15-37) Alanine Aminotransferase (ALT/SGPT) 20 U/L (14-59) Alkaline Phosphatase 89 U/L (46-116) C-Reactive Protein, Quantitative 43.9 mg/L (0-3.3) Total Protein 7.4 g/dL (6.4-8.2) Albumin 3.8 g/dL (3.4-5.0) Albumin/Globulin Ratio 1.1 (1.0-1.7) Lipase 171 U/L (73-393) Urine Collection Type Unknown Urine Color Yellow Urine Clarity Cloudy Urine pH 7.5 Urine Specific [place] 1.020 Urine Protein 30 mg/dL (NEG-TRACE) Urine Glucose (UA) Negative mg/dL (NEG) Urine Ketones (Stick) Negative mg/dL (NEG) Urine Blood Negative (NEG) Urine Nitrite Negative (NEG) Urine Bilirubin Negative (NEG) Urine Urobilinogen Dipstick 1.0 mg/dL (0.2 mg/dL) Urine Leukocyte Esterase Small (NEG) Urine RBC Occ /HPF (0-2) Urine WBC 1-4 /HPF (0-4) Urine Squamous Epithelial Cells Many /LPF Urine Amorphous Sediment Present /HPF Urine Bacteria Moderate /HPF (0-FEW) Assessment/Plan Assessment/Plan Yahaira is two weeks postop from left total knee arthroplasty. Last night she developed a fever, nausea, vomiting, and increased left knee pain. The left knee was aspirated in the ER and synovial fluid was sent for cultures and gram stain. There was not enough fluid for cell count with diff. Gram stain shows occasional gram positive cocci. Dr. Chapman recommends left knee irrigation and debridement with possible polyethylene exchange tomorrow morning. This was discussed with the patient, along with the risks and benefits of surgery, and she agrees to proceed. NPO after midnight. SIDDHARTH ARITA Mar 31, 2017 15:39
[2017-03-31 19:00] VITALS: BP 175/79
[2017-03-31] MEDS: ASPIRIN ENTERIC COATED 325 MG TABLET.DR. PO SCH (20:22)
[2017-03-31 23:00] VITALS: BP 148/80
[2017-04-01] VITALS (9 sets, daily range): BP systolic 117–156; BP diastolic 61–72
[2017-04-01] MEDS: PIPERACILLIN/TAZOBACTAM 4.5 GM in IV NORMAL SALINE 100ML 100 ML IV SCH ×2 (01:01→05:13)
[2017-04-01] MEDS ORDERED: TRANEXAMIC ACID 1,000 MG in IV NORMAL SALINE 50ML 50 ML INJ ONE ×2 (06:00→08:00)
[2017-04-01 06:51] LABS: BASO % 0 % (0-3); EOS % 1 % (0-3); HEMATOCRIT 30.7 % (36.0-47.0); HEMOGLOBIN 10.5 g/dL (12.0-15.5); LYMPH # 1.4 x10^3/uL (1.0-4.8); LYMPH % 9 % (24-48); MEAN CORPUSCULAR HEMOGLOBIN 28 pg (25-35); MEAN CORPUSCULAR HGB CONC 34 g/dL (31-37); MEAN CORPUSCULAR VOLUME 83 fL (79-100); MONO % 6 % (0-9); NEUT % 85 % (31-73); PLATELET COUNT 314 x10^3/uL (140-400); RED CELL DISTRIBUTION WIDTH 13.8 % (11.5-14.5); WHITE BLOOD COUNT 16.6 x10^3/uL (4.0-11.0)
[2017-04-01] MEDS ORDERED: IV RINGERS,LACTATED 1000ML 1,000 ML IV SCH (07:00)
[2017-04-01] MEDS ORDERED: fentaNYL PF VIAL 100 MCG/2 ML VIAL IV PRN ×3 (07:00→09:15)
[2017-04-01] MEDS ORDERED: PROCHLORPERAZINE 10 MG/2 ML VIAL. IV PRN ×2 (07:00→09:15)
[2017-04-01] MEDS ORDERED: LIDOCAINE 1% 1 ML SYRINGE. ID PRN (07:00)
[2017-04-01] MEDS ORDERED: ONDANSETRON PF 4 MG/2 ML VIAL. IV PRN (07:00)
[2017-04-01] MEDS ORDERED: PROPOFOL 20 ML IV ONE ×2 (07:05→08:28)
[2017-04-01] MEDS ORDERED: LIDOCAINE 2% PF Vial for OR 5 ML VIAL. ONE (07:05)
[2017-04-01] MEDS ORDERED: ONDANSETRON PF 4 MG/2 ML VIAL. ONE (07:05)
[2017-04-01] MEDS ORDERED: DEXAMETHASONE SOD PHOS 20 MG/5 ML VIAL. ONE (07:05)
[2017-04-01] MEDS ORDERED: fentaNYL PF VIAL 100 MCG/2 ML VIAL ONE ×2 (07:06→07:28)
[2017-04-01] MEDS ORDERED: MIDAZOLAM HCL/PF 2 MG/2 ML VIAL. ONE (07:06)
[2017-04-01 07:19] LABS: ALBUMIN 2.8 g/dL (3.4-5.0); ALBUMIN/GLOBULIN RATIO 0.7 (1.0-1.7); CALCIUM 8.8 mg/dL (8.5-10.1); GFR 57.4; POTASSIUM 3.6 mmol/L (3.5-5.1); TOTAL BILIRUBIN 0.6 mg/dL (0.2-1.0); TOTAL PROTEIN 6.7 g/dL (6.4-8.2)
[2017-04-01] MEDS ORDERED: ePHEDrine PF IN SALINE 50 MG/5 ML DISP.SYRIN IV ONE (07:54)
[2017-04-01] MEDS: CALCIUM CARB/VIT D3 500/200 TABLET. PO SCH ×2 (08:00→18:06)
[2017-04-01] MEDS: ALBUTEROL SULFATE 2.5 MG/3 ML NEBU. NEB SCH ×4 (08:00→19:18)
[2017-04-01] MEDS ORDERED: GLUCOSAMINE PO SCH (09:00)
[2017-04-01] MEDS: FERROUS SULFATE 325 MG TABLET. PO SCH (09:00)
[2017-04-01] MEDS ORDERED: METHYLSULFONYLMETHANE PO SCH (09:00)
[2017-04-01] MEDS: CELECOXIB 200 MG CAPSULE. PO SCH ×2 (09:00→11:40)
[2017-04-01] MEDS: PANTOPRAZOLE 40 MG TABLET.DR. PO SCH (09:00)
[2017-04-01] MEDS: LOSARTAN POTASSIUM 50 MG TABLET. PO SCH (09:00)
[2017-04-01] MEDS: ENOXAPARIN 40 MG/0.4 ML SYRINGE. SQ SCH ×2 (09:00→21:17)
[2017-04-01] MEDS: MULTIVITAMIN with MINERAL TABLET. PO SCH (09:00)
[2017-04-01] MEDS ORDERED: MORPHINE SULFATE 2 MG/ML DISP.SYRIN. IV PRN (09:15)
[2017-04-01] MEDS ORDERED: 0.9 % SODIUM CHLORIDE 10 ML DISP.SYRIN. IV PRN (09:15)
[2017-04-01] MEDS ORDERED: PROCHLORPERAZINE 5 MG TABLET. PO PRN (09:15)
[2017-04-01] MEDS ORDERED: oxyCODONE/APAP 5/325 1 TAB TABLET PO PRN (09:15)
[2017-04-01] MEDS ORDERED: DEXTROSE 50% 25 GM / 50ML DISP.SYRIN. IV PRN (09:15)
[2017-04-01] MEDS ORDERED: oxyCODONE/APAP 7.5/325 1 TAB TABLET PO PRN (09:15)
[2017-04-01] MEDS ORDERED: MORPHINE SULFATE 4 MG/ML DISP.SYRIN. IV PRN ×2 (09:15)
[2017-04-01] MEDS ORDERED: CALCIUM CARBONATE 500 MG TAB.CHEW PO PRN (09:15)
[2017-04-01] MEDS ORDERED: ACETAMINOPHEN 325 MG TABLET. PO PRN (09:15)
[2017-04-01] MEDS ORDERED: traMADol 50 MG TABLET PO PRN (09:15)
[2017-04-01] MEDS ORDERED: diphenhydrAMINE 50 MG/ML VIAL IV PRN (09:15)
[2017-04-01] MEDS ORDERED: MORPHINE SULFATE 10 MG/ML VIAL. IV PRN (09:15)
[2017-04-01] MEDS ORDERED: ZOLPIDEM 5 MG TABLET. PO PRN (09:15)
--- NOTE | 2017-04-01 09:19 | PDOC ---
BRIEF OPERATIVE NOTE Date: Apr 01, 2017 Pre-Op Diagnosis infected left total knee arthroplasty Post-Op Diagnosis same Procedure Performed irrigation and debridement (open) of left total knee arthroplasty Surgeon vidya Senior Sql Database Developer loren Anesthesiologist kathya Anesthesia Type: Regional Blood Loss 100 mL Specimens Obtained cultures: aerobe, anaerobe, fungal and AFB cell count with differential Findings abundant cloudy brackish fluid, not harsh pus, but consistent with infection. Complications none Additional Remarks tourniquet approx 30 minutes dictated [id number] EMA MONTANA MD Apr 01, 2017 09:19
--- NOTE | 2017-04-01 09:33 | PDOC ---
Infectious Disease Note ROS ROS Vital Sign Vital Signs Vital Signs Date Time Temp Pulse Resp B/P (MAP) Pulse Ox O2 Delivery O2 Flow Rate FiO2 04/01/17 06:56 98.2 75 12 190/88 94 Room Air 98.2 Labs Lab Laboratory Tests Test 04/01/17 05:15 White Blood Count 16.6 x10^3/uL (4.0-11.0) Red Blood Count 3.70 x10^6/uL (3.50-5.40) Hemoglobin 10.5 g/dL (12.0-15.5) Hematocrit 30.7 % (36.0-47.0) Mean Corpuscular Volume 83 fL (79-100) Mean Corpuscular Hemoglobin 28 pg (25-35) Mean Corpuscular Hemoglobin Concent 34 g/dL (31-37) Red Cell Distribution Width 13.8 % (11.5-14.5) Platelet Count 314 x10^3/uL (140-400) Neutrophils (%) (Auto) 85 % (31-73) Lymphocytes (%) (Auto) 9 % (24-48) Monocytes (%) (Auto) 6 % (0-9) Eosinophils (%) (Auto) 1 % (0-3) Basophils (%) (Auto) 0 % (0-3) Neutrophils # (Auto) 14.0 x10^3uL (1.8-7.7) Lymphocytes # (Auto) 1.4 x10^3/uL (1.0-4.8) Monocytes # (Auto) 0.9 x10^3/uL (0.0-1.1) Eosinophils # (Auto) 0.2 x10^3/uL (0.0-0.7) Basophils # (Auto) 0.0 x10^3/uL (0.0-0.2) Sodium Level 138 mmol/L (136-145) Potassium Level 3.6 mmol/L (3.5-5.1) Chloride Level 103 mmol/L (98-107) Carbon Dioxide Level 27 mmol/L (21-32) Anion Gap 8 (6-14) Blood Urea Nitrogen 10 mg/dL (7-20) Creatinine 1.0 mg/dL (0.6-1.0) Estimated GFR (Cockcroft-Gault) 57.4 BUN/Creatinine Ratio 10 (6-20) Glucose Level 103 mg/dL (70-99) Calcium Level 8.8 mg/dL (8.5-10.1) Total Bilirubin 0.6 mg/dL (0.2-1.0) Aspartate Amino Transf (AST/SGOT) 12 U/L (15-37) Alanine Aminotransferase (ALT/SGPT) 15 U/L (14-59) Alkaline Phosphatase 74 U/L (46-116) Total Protein 6.7 g/dL (6.4-8.2) Albumin 2.8 g/dL (3.4-5.0) Albumin/Globulin Ratio 0.7 (1.0-1.7) Objective Assessment Fever Leukocytosis - now s/p Dexamethasone 04/01 L TKA infection s/p I and D 04/01 Staph aureus Plan Plan of Care Cont Vanc D/c Zosyn Begin Cefazolin PICC line F/u labs (BMP/sed rate in am) and final cults Social Service consult D/w Dr. Chapman Thank you # [id number] EMILIA BETHEA MD Apr 01, 2017 09:33
[2017-04-01 09:45] LABS: BF CLARITY TURBID; BF COLOR RED
[2017-04-01] MEDS: IV DEXTROSE 5 %-0.45 % NACL 1,000 ML IV SCH ×2 (11:00→19:15)
[2017-04-01] MEDS: ASPIRIN ENTERIC COATED 325 MG TABLET.DR. PO SCH ×2 (11:05→21:18)
[2017-04-01] MEDS: traMADol 50 MG TABLET PO PRN ×4 (11:06→21:18)
[2017-04-01] MEDS: VANCOMYCIN PER PHARMACY MC PRN (11:34)
[2017-04-01] MEDS: fentaNYL PF VIAL 100 MCG/2 ML VIAL IV PRN ×2 (11:38→15:04)
--- NOTE | 2017-04-01 12:30 | OP ---
DATE OF SURGERY: 04/01/2017 PREOPERATIVE DIAGNOSIS: Infected left total knee arthroplasty. POSTOPERATIVE DIAGNOSIS: Infected left total knee arthroplasty. PROCEDURE: Irrigation and debridement, left total knee arthroplasty. SURGEON: Michael Chapman MD COMMERCIAL COORDINATOR: Jessika Schuler PA-C. ANESTHESIA: Spinal. ESTIMATED BLOOD LOSS: 100 mL. COMPLICATIONS: None. SPECIMENS: Joint fluid and tissue for cultures including aerobic, anaerobe, fungal, and AFB. Joint fluid for cell count with differential. DRAINS: Large Hemovac. INDICATIONS: The patient is a 56-year-old woman who had left total knee arthroplasty two weeks ago. She presented on Thursday with increasing pain, and history of fever and nausea. The knee was aspirated, and the results yesterday showed gram positive cocci. She was made n.p.o. after midnight for surgery today. She has a probable prosthetic infection, early infection after total knee arthroplasty, and the recommended treatment at this point is irrigation and debridement with retention of the cemented implants. There is some chance this will fail, and the future course might require removal of the implant, but the standard orthopedic recommendation at this point is to try to maintain the implants and treat the infection with debridement and IV antibiotics, and perhaps some additional oral antibiotics suppression. I spoke to her about the risks and benefits of proceeding with surgery and I recommended urgent surgery today. We talked about the potential risks such as blood clots, ongoing infection, need for further surgeries or possible eventual need for removal of the implants. All of her questions about surgery were answered and she desired to proceed. Written consent was obtained. DESCRIPTION OF PROCEDURE: The patient was identified in the preoperative holding area. The correct left knee was marked by me. She was taken to the operating room where a spinal anesthetic was used. The limb was elevated, and a tourniquet was applied. The limb was prepared with ChloraPrep solution and sterile drapes were applied with an impervious stockinette over the lower limb, and an Blair leg castro, and an [place] drape such that the skin was entirely covered. Tranexamic acid was given intravenously. The patient remains on scheduled doses of antibiotics and no additional dosing was given. She has been on vancomycin and Zosyn. The limb was elevated to exsanguinate. The tourniquet was inflated to 350 mmHg. Her previous midline incision was used. This was sharply reopened with a scalpel. Brackish serous to slightly cloudy fluid was identified, consistent with infection, however, there was no harsh pus. This fluid was sent for cultures including aerobic, anaerobe, fungal, and AFB. Additional fluid was drawn up in a syringe and sent in a green-top tube for cell count with differential. I proceeded with the incision through the subcutaneous tissue and down to the capsule, but did not initially enter the capsule in case the infection was localized to the superficial area. I did a debridement. At this point, excisional debridement using a scalpel and with a rongeur, and removed nonviable questionable appearing subcutaneous tissues. I used the [place] InterPulse oil truck driver, and irrigated multiple liters of saline through the anterior subcutaneous knee incision down to the level of the capsule. I opened the capsule and had changed my outer gloves. There was also this brackish fluid within the knee joint, indicating an intra-articular probable infection as well. There was a copious amount of fluid, again slightly cloudy to translucent orange to brownish fluid, consistent with infection, but did not have any harsh pus. Again, there was inflammation of the synovial tissues, and a synovectomy and aggressive debridement was performed removing any nonviable or questionable tissues. Healthy appearing tissue remained. The polyethylene component of the knee was removed with a Matheny elevator and taken to the back table where it was soaked with Betadine. The knee was manipulated throughout different ranges motion, so all of the cavities and compartments could be accessed and cleaned. I used the rongeurs for excisional debridement of the nonviable tissues and then use the [place] InterPulse oil truck driver for copious irrigation. The 3 liters of saline through the [place] InterPulse was irrigated through the knee. I had Jessika hold the knee; now with the tibia subluxed anteriorly, and irrigated the tibial baseplate thoroughly. The polyethylene implant was now irrigated with saline, and then secured back to the tibial baseplate. The knee was reduced. There was good stability throughout the range of motion. Additional tranexamic acid was given intravenously. The tourniquet was released. Bovie electrocautery was used for hemostasis. Large Hemovac drain was placed. The incision was closed in layers. Then, #1 PDS suture was used in an interrupted and then in a running fashion in the capsule. I had Jessika close the subcutaneous tissues with 2-0 Vicryl and then used alejandro in the skin. She placed a bulky sterile dressing and Prevena dressing as well. Needle and sponge counts were correct. There were no apparent complications. Michael Chapman MD DR: LILLY/chaparro JOB#: [id number] / [id number] RUSTAM
[2017-04-01] MEDS: VANCOMYCIN 1.5 GM in IV NORMAL SALINE 500ML BAG 500 ML IV SCH ×2 (12:45→23:53)
--- NOTE | 2017-04-01 15:53 | RAD ---
Portable chest, 04/01/2017: History: Check PICC placement Comparison is made to a study from 02/23/2017. A right PICC has been inserted extending into the superior vena cava. The heart size and pulmonary vascularity are normal. There is calcific plaquing of the aorta. No pulmonary infiltrates are seen. There is no evidence of pleural fluid. IMPRESSION: 1. The right PICC is in satisfactory position. 2. No acute cardiopulmonary abnormality is detected.
--- NOTE | 2017-04-02 00:51 | CONS ---
DATE OF CONSULTATION: 04/01/2017 The patient's room is 412, was seen in the postoperative area. REQUESTING PHYSICIAN: Dr. Chapman. REASON FOR CONSULTATION: Knee infection. HISTORY OF PRESENT ILLNESS: The patient is a pleasant 56-year-old female who on 03/17/2017 underwent a total left knee replacement. She states that postoperatively, the wound kind of drained on and off and she had been doing fairly well until this past Thursday, which is approximately 4-5 days ago, when the drainage actually began to squirt out. She described it as kind of a yellow drainage and she began to have a little fatigue. She has taken some Celebrex and has been taking some aspirin. No antibiotics. By Thursday; however, she began to have fevers. She had nausea, vomiting. The drainage in her knee has stopped, but she developed increased pain in her knee and swelling. She had weakness. No sinus issues. No sore throat. She did have a mild headache. No cramps, diarrhea. No dysuria, frequency or urgency. She denies any trauma. She presented to [facility] Emergency Room on the with the complaint of the fever. On arrival, she had a white count of 19.3. She had 8% bands. Sed rate was at 30. She underwent a lower extremity ultrasound. No DVT was seen. A knee aspiration was performed and sent for culture. Gram stain was positive for gram-positive cocci. After the aspiration, she was placed on vancomycin and Zosyn. This morning, she was taken to the operating room by Dr. Chapman where she underwent irrigation and debridement of the left total knee. In discussion with Dr. Chapman, he said when he opened the wound, there was harsh pus. Initially he thought it was going to be more of a superficial wound, but getting down in the joint area, more of a brackish type of drainage that was consistent with infection. Dr. Chapman has now received a phone call from the lab saying that the patient does have Staph aureus. Currently, she is lying in bed. She is fairly comfortable postoperatively. PAST MEDICAL HISTORY: Positive for hypertension, anxiety, osteoarthritis, allergic rhinitis, gastroesophageal reflux disease, reactive airway disease and some mild obesity and osteoarthritis. PAST SURGICAL HISTORY: Positive for the above-mentioned left total knee arthroplasty as well as a hysterectomy. She has had a breast reduction, cholecystectomy, right ankle surgery. REVIEW OF SYSTEMS: Otherwise negative except for what is mentioned above. ALLERGIES: LISTED HYDROCODONE, BUT CAUSE MORE OF A GI UPSET, RANCHO INHIBITOR CAUSE COUGHING. SOCIAL HISTORY: No tobacco. She is . No alcohol. She has a cat. The cat has not been close to the wound. FAMILY HISTORY: Noncontributory to her situation. CURRENT MEDICATIONS: Include vancomycin, Zosyn, aspirin, Lovenox, losartan, Protonix, Ultram. Other meds are available, have been reviewed in the chart. Of note, she did get a dose of dexamethasone today. PHYSICAL EXAMINATION: VITAL SIGNS: T-max last night was 100.1, currently 98.2, pulse 75, respirations 12, blood pressure 190/88, satting 94% on room air. CONSTITUTIONAL: She is pleasant and cooperative. She is in no acute distress. She is lying in bed. HEENT: Pupils are equal and reactive. She has normal conjunctivae. Oral cavity, pharynx is clear. NECK: Supple. No JVD. LUNGS: Clear to auscultation. HEART: S1, S2. ABDOMEN: Mildly obese, soft, nontender, nondistended. Decreased bowel sounds. EXTREMITIES: Has a peripheral IV in the right upper extremity. Her left knee is heavily bandaged. She has a drain in place as well as a brace. SKIN: Warm to touch without signs of rash. NEUROLOGIC: Answering questions appropriately, did roll appropriately from side to side for evaluation as well as change. SKIN: Warm to touch without generalized signs of rash. PSYCHIATRIC: Affect is appropriate. LABORATORY DATA: Today, white count 16.6, hemoglobin 10.5, platelets of 314, neutrophils are 85. Sed rate was 30 on the , creatinine 1, glucose 103, normal liver function study test. Urinalysis was not consistent with urinary tract infection. Urine culture is negative. She has a urine culture from the that is without growth. Ultrasound reviewed in history of present illness. IMPRESSION: 1. Fever. 2. Leukocytosis, now status post dexamethasone on the . 3. Left total knee infection. 4. Left total knee arthroplasty infection, status post I and D on 04/01/2017. 5. Staphylococcus aureus, uncertain if it is methicillin sensitive or MRSA at this point. RECOMMENDATIONS: For now, continue vancomycin. We will discontinue Zosyn. We will begin cefazolin, have a PICC line placed. We will follow up labs. BMP and sed rate in the morning. Her white blood cell count will be elevated postoperative with the dexamethasone. We will follow up on final cultures. Obtain a Social Service consultation as she will need outpatient antibiotics. This was discussed with Dr. Chapman. Thank you for allowing me to participate in this patient's care. If you have any questions, please do not hesitate to contact me. EMILIA BETHEA MD DR: ARVIN/chaparro JOB#: [id number] / [id number]
[2017-04-02] MEDS: traMADol 50 MG TABLET PO PRN ×3 (01:36→11:07)
[2017-04-02] MEDS: ALBUTEROL SULFATE 2.5 MG/3 ML NEBU. NEB SCH ×7 (01:57→23:31)
[2017-04-02 03:00] VITALS: BP 119/56
[2017-04-02 05:12] LABS: CALCIUM 8.4 mg/dL (8.5-10.1); CREATININE 1.2 mg/dL (0.6-1.0); GFR 46.5; POTASSIUM 3.8 mmol/L (3.5-5.1)
[2017-04-02] MEDS: IV DEXTROSE 5 %-0.45 % NACL 1,000 ML IV SCH ×3 (05:15→20:35)
[2017-04-02] MEDS ORDERED: MAGNESIUM HYDROXIDE 2,400 MG/30 ML ORAL.SUSP. PO PRN (06:00)
[2017-04-02 07:00] VITALS: BP 132/74
[2017-04-02] MEDS ORDERED: MULTIVITAMIN with MINERAL TABLET. PO SCH (09:00)
--- NOTE | 2017-04-02 09:04 | PDOC ---
Infectious Disease Note Subjective Subjective Doing ok. Pain ok. + Flatus Ate some breakfast ROS ROS GEN: Denies fevers, chills, sweats HEENT: Denies blurred vision, sore throat but is dry CV: Denies chest pain RESP: Denies shortness of air, cough GI: Denies n/v/d NEURO: Denies confusion, dizziness MSK: Denies weakness Vital Sign Vital Signs Vital Signs Date Time Temp Pulse Resp B/P (MAP) Pulse Ox O2 Delivery O2 Flow Rate FiO2 04/02/17 07:40 98 Room Air 04/02/17 03:00 98.0 75 18 119/56 (77) 98.0 04/01/17 23:53 2.0 Physical Exam PHYSICAL EXAM GENERAL: NAD, Alert HEENT: PERRL, OC/OP- clear NECK: Supple, no JVD, no LN LUNGS: Clear HEART: S1S2, no gallop, no murmur ABD: Soft, NT, no organomegaly, no rebound, obese EXT: No edema, no cyanosis. LLE with drain and dressed. Brace and topical vac ELECTRIC METER INSPECTOR: Alert, oriented x 3, no focal neurologic deficit SKIN: No rash IV: PICC RUE - clean Labs Lab Laboratory Tests Test 04/01/17 10:40 04/02/17 04:35 Vancomycin Level Trough 17.0 mcg/mL (10.0-20.0) Vancomycin Last Dose Date 03/31/17 Vancomycin Last Dose Time 2230 Erythrocyte Sedimentation Rate 62 (0-25) Sodium Level 139 mmol/L (136-145) Potassium Level 3.8 mmol/L (3.5-5.1) Chloride Level 104 mmol/L (98-107) Carbon Dioxide Level 30 mmol/L (21-32) Anion Gap 5 (6-14) Blood Urea Nitrogen 10 mg/dL (7-20) Creatinine 1.2 mg/dL (0.6-1.0) Estimated GFR (Cockcroft-Gault) 46.5 Glucose Level 113 mg/dL (70-99) Calcium Level 8.4 mg/dL (8.5-10.1) Objective Assessment Fever Leukocytosis - now s/p Dexamethasone 04/01 L TKA infection s/p I and D 04/01 Staph aureus Plan Plan of Care Cont Vanc/Cefazolin F/u labs and final cults Social Service consult EMILIA BETHEA MD Apr 02, 2017 09:04
[2017-04-02] MEDS: SENNOSIDES/DOCUSATE 8.6/50MG TABLET. PO SCH (09:44)
[2017-04-02] MEDS: ASPIRIN ENTERIC COATED 325 MG TABLET.DR. PO SCH ×2 (09:45→20:30)
[2017-04-02] MEDS: MULTIVITAMIN with MINERAL TABLET. PO SCH (09:45)
[2017-04-02] MEDS: PANTOPRAZOLE 40 MG TABLET.DR. PO SCH (09:45)
[2017-04-02] MEDS: CALCIUM CARB/VIT D3 500/200 TABLET. PO SCH ×2 (09:45→18:31)
[2017-04-02] MEDS: LOSARTAN POTASSIUM 50 MG TABLET. PO SCH (09:45)
[2017-04-02] MEDS: ENOXAPARIN 40 MG/0.4 ML SYRINGE. SQ SCH ×2 (09:46→20:31)
[2017-04-02] MEDS: FERROUS SULFATE 325 MG TABLET. PO SCH (09:46)
[2017-04-02] MEDS: VANCOMYCIN 1.5 GM in IV NORMAL SALINE 500ML BAG 500 ML IV SCH ×2 (11:04→21:57)
[2017-04-02 11:14] VITALS: BP 144/70
[2017-04-02] MEDS: VANCOMYCIN PER PHARMACY MC PRN (13:15)
[2017-04-02 15:02] VITALS: BP 136/66
[2017-04-02] MEDS ORDERED: BISACODYL 10 MG SUPP.RECT. PR PRN (16:00)
--- NOTE | 2017-04-02 17:45 | PDOC ---
PROGRESS NOTES Subjective Subjective Patient good spirits and feeling better. Left knee wound VAC and dressing in place. Patient was able to get up in his chair at present. Patient tolerating diet. Cultures positive for staph sensitivities pending at this time. Continue antibiotics per infectious disease. Continue orthopedic care. Objective Objective Vital Signs Date Time Temp Pulse Resp B/P (MAP) Pulse Ox O2 Delivery O2 Flow Rate FiO2 04/02/17 15:41 Room Air 04/02/17 15:02 98.4 84 20 136/66 (89) 93 98.4 04/01/17 23:53 2.0 Intake and Output 04/02/17 07:00 Intake Total 1998 ml Output Total 190 ml Balance 1808 ml Intake Oral 600 ml IV Total 1000 ml Other 398 ml Drainage Total 90 ml Estimated Blood Loss 100 ml # Voids 6 Physical Exam Abdomen: Normal bowel sounds Heart: Regular rate General: Alert Lungs: Clear to auscultation Assessment Assessment Problems Medical Problems: (1) Left knee pain Status: Acute (2) Leukocytosis Status: Acute Left Knee pain and Fever Leukocytosis - now s/p Dexamethasone 04/01 L TKA infection s/p I and D 04/01 Staph aureus Plan Plan of Care Continue orthopedic surgery management. Continue IV antibiotics. Await Staph aureus sensitivities. Comment Review of Relevant I have reviewed the following items brenna (where applicable) has been applied. Labs Laboratory Tests Test 04/01/17 05:15 04/01/17 08:10 04/01/17 10:40 04/02/17 04:35 White Blood Count 16.6 x10^3/uL (4.0-11.0) Red Blood Count 3.70 x10^6/uL (3.50-5.40) Hemoglobin 10.5 g/dL (12.0-15.5) Hematocrit 30.7 % (36.0-47.0) Mean Corpuscular Volume 83 fL (79-100) Mean Corpuscular Hemoglobin 28 pg (25-35) Mean Corpuscular Hemoglobin Concent 34 g/dL (31-37) Red Cell Distribution Width 13.8 % (11.5-14.5) Platelet Count 314 x10^3/uL (140-400) Neutrophils (%) (Auto) 85 % (31-73) Lymphocytes (%) (Auto) 9 % (24-48) Monocytes (%) (Auto) 6 % (0-9) Eosinophils (%) (Auto) 1 % (0-3) Basophils (%) (Auto) 0 % (0-3) Neutrophils # (Auto) 14.0 x10^3uL (1.8-7.7) Lymphocytes # (Auto) 1.4 x10^3/uL (1.0-4.8) Monocytes # (Auto) 0.9 x10^3/uL (0.0-1.1) Eosinophils # (Auto) 0.2 x10^3/uL (0.0-0.7) Basophils # (Auto) 0.0 x10^3/uL (0.0-0.2) Sodium Level 138 mmol/L (136-145) 139 mmol/L (136-145) Potassium Level 3.6 mmol/L (3.5-5.1) 3.8 mmol/L (3.5-5.1) Chloride Level 103 mmol/L (98-107) 104 mmol/L (98-107) Carbon Dioxide Level 27 mmol/L (21-32) 30 mmol/L (21-32) Anion Gap 8 (6-14) 5 (6-14) Blood Urea Nitrogen 10 mg/dL (7-20) 10 mg/dL (7-20) Creatinine 1.0 mg/dL (0.6-1.0) 1.2 mg/dL (0.6-1.0) Estimated GFR (Cockcroft-Gault) 57.4 46.5 BUN/Creatinine Ratio 10 (6-20) Glucose Level 103 mg/dL (70-99) 113 mg/dL (70-99) Calcium Level 8.8 mg/dL (8.5-10.1) 8.4 mg/dL (8.5-10.1) Total Bilirubin 0.6 mg/dL (0.2-1.0) Aspartate Amino Transf (AST/SGOT) 12 U/L (15-37) Alanine Aminotransferase (ALT/SGPT) 15 U/L (14-59) Alkaline Phosphatase 74 U/L (46-116) Total Protein 6.7 g/dL (6.4-8.2) Albumin 2.8 g/dL (3.4-5.0) Albumin/Globulin Ratio 0.7 (1.0-1.7) Body Fluid Source Synovial Body Fluid Color Red Body Fluid Clarity Turbid Body Fluid Nucleated Cells 73494 /cmm Body Fluid Mononuclear WBCs (%) 3 % Body Fluid Polymorphonuclear Cells 97 % Body Fluid Total RBCs Counted 80298 /cmm Vancomycin Level Trough 17.0 mcg/mL (10.0-20.0) Vancomycin Last Dose Date 03/31/17 Vancomycin Last Dose Time 2230 Erythrocyte Sedimentation Rate 62 (0-25) Laboratory Tests Test 04/02/17 04:35 Erythrocyte Sedimentation Rate 62 (0-25) Sodium Level 139 mmol/L (136-145) Potassium Level 3.8 mmol/L (3.5-5.1) Chloride Level 104 mmol/L (98-107) Carbon Dioxide Level 30 mmol/L (21-32) Anion Gap 5 (6-14) Blood Urea Nitrogen 10 mg/dL (7-20) Creatinine 1.2 mg/dL (0.6-1.0) Estimated GFR (Cockcroft-Gault) 46.5 Glucose Level 113 mg/dL (70-99) Calcium Level 8.4 mg/dL (8.5-10.1) Microbiology 03/30/17 Blood Culture - Preliminary, Resulted NO GROWTH AFTER 2 DAYS 04/01/17 Anaerobic/Aerobic Culture, Resulted Pending 04/01/17 Anaerobic Culture Result 1 (CHUCKY), Resulted Pending 04/01/17 Aerobic Culture - Preliminary, Resulted 04/01/17 Aerobic Culture Result 1 (CHUCKY) - Preliminary, Resulted 03/30/17 Urine Culture - Final, Complete 03/30/17 Urine Culture Result 1 (CHUCKY) - Final, Complete Medications Current Medications Ondansetron HCl (Zofran) 4 mg STTippmann SportsMED ONCE .ROUTE ; Start 03/30/17 at 18:45; Stop 03/30/17 at 18:46; Status DC Sodium Chloride 1,000 ml @ 1,000 mls/hr 1X ONCE IV Last administered on 19:02; Start 03/30/17 at 19:00; Stop 03/30/17 at 19:59; Status DC Ondansetron HCl (Zofran) 4 mg 1X ONCE IV Last administered on 03/30/17 19:01 ; Start 03/30/17 at 19:00; Stop 03/30/17 at 19:01; Status DC Acetaminophen (Tylenol) 1,000 mg 1X ONCE PO Last administered on 03/30/17 19: 36; Start 03/30/17 at 19:45; Stop 03/30/17 at 19:46; Status DC Ondansetron HCl (Zofran) 4 mg PRN Q8HRS PRN IV NAUSEA/VOMITING Last administered on 03/31/17 17:38; Start 03/30/17 at 20:45; Stop 03/31/17 at 20:44 ; Status DC Fentanyl Citrate (Fentanyl 2ml Vial) 50 mcg PRN Q2HR PRN IV PAIN Last administered on 03/31/17 17:48; Start 03/30/17 at 20:45; Stop 03/31/17 at 20:44 ; Status DC Acetaminophen (Tylenol) 650 mg PRN Q4HRS PRN PO FEVER; Start 03/30/17 at 20:45 ; Stop 03/31/17 at 20:44; Status DC Lidocaine HCl 20 ml STK-MED ONCE .ROUTE ; Start 03/30/17 at 21:02; Stop at 21:03; Status DC Hydromorphone HCl (Dilaudid) 2 mg STK-MED ONCE .ROUTE ; Start 03/30/17 at 21:12 ; Stop 03/30/17 at 21:13; Status DC Vancomycin HCl (Vanco Per Pharmacy) 1 each PRN DAILY PRN MC SEE COMMENTS Last administered on 04/02/17 13:15; Start 03/30/17 at 22:00 Piperacillin Sod/ Tazobactam Sod 4.5 gm/Sodium Chloride 100 ml @ 200 mls/hr Q6HRS IV Last administered on 04/01/17 05:13; Start 03/31/17 at 00:00; Stop at 09:26; Status DC Vancomycin HCl 2 gm/Sodium Chloride 500 ml @ 250 mls/hr 1X ONCE IV Last administered on 03/30/17 22:52; Start 03/30/17 at 22:00; Stop 03/30/17 at 23:59 ; Status DC Vancomycin HCl 1.5 gm/Sodium Chloride 500 ml @ 250 mls/hr Q12H IV Last administered on 04/02/17 11:04; Start 03/31/17 at 10:30 Vancomycin HCl 1 each 1X ONCE MC ; Start 04/01/17 at 10:00; Stop 04/01/17 at 10 :01; Status DC Alprazolam (Xanax) 0.25 mg PRN Q6HRS PRN PO ANXIETY / AGITATION; Start at 11:15 Aspirin (Ecotrin) 325 mg BID PO Last administered on 04/02/17 09:45; Start at 21:00 Celecoxib (CeleBREX) 200 mg DAILY PO Last administered on 04/01/17 11:40; Start 04/01/17 at 09:00 Ferrous Sulfate (Feosol) 325 mg DAILY PO Last administered on 04/02/17 09:46; Start 03/31/17 at 12:00 Pantoprazole Sodium (Protonix) 40 mg DAILY PO Last administered on 04/02/17 09 :45; Start 03/31/17 at 11:00 Tramadol HCl (Ultram) 50 mg PRN Q6HRS PRN PO PAIN Last administered on 11:06; Start 03/31/17 at 11:15 Non-Formulary Medication 2 puff Q4HRS INH ; Start 03/31/17 at 12:00; Status UNV Calcium/Vitamin D (Oscal D 500mg/ 200uts) 1 tab BIDWMEALS PO Last administered on 04/02/17 09:45; Start 03/31/17 at 12:00 Non-Formulary Medication 1 each DAILY PO ; Start 04/01/17 at 09:00; Stop at 09:00; Status DC Multivitamins (Thera M Plus) 1 tab DAILY PO Last administered on 04/02/17 09: 45; Start 04/01/17 at 09:00 Losartan Potassium (Cozaar) 100 mg DAILY PO Last administered on 04/02/17 09: 45; Start 03/31/17 at 12:00 Enoxaparin Sodium (Lovenox 40mg Syringe) 40 mg BID SQ Last administered on 04/02 09:46; Start 03/31/17 at 12:00 Albuterol Sulfate (Ventolin Neb Soln) 2.5 mg Q4HRS NEB Last administered on 15:40; Start 03/31/17 at 12:00 Ondansetron HCl (Zofran) 4 mg PRN Q6HRS PRN IV NAUSEA/VOMITING; Start 04/01/17 at 07:00; Stop 04/02/17 at 06:59; Status DC Fentanyl Citrate (Fentanyl 2ml Vial) 25 mcg PRN Q5MIN PRN IV MILD PAIN; Start 04/01/17 at 07:00; Stop 04/02/17 at 06:59; Status DC Fentanyl Citrate (Fentanyl 2ml Vial) 50 mcg PRN Q5MIN PRN IV MODERATE PAIN Last administered on 04/01/17 10:14; Start 04/01/17 at 07:00; Stop 04/02/17 at 06:59; Status DC Ringer's Solution 1,000 ml @ 30 mls/hr Q24H IV Last administered on 04/01/17 06:58; Start 04/01/17 at 07:00; Stop 04/01/17 at 18:59; Status DC Lidocaine HCl 2 ml PRN 1X PRN ID PRIOR TO IV START; Start 04/01/17 at 07:00; Stop 04/02/17 at 06:59; Status DC Prochlorperazine Edisylate (Compazine) 5 mg PACU PRN PRN IV NAUSEA, MRX1 Last administered on 04/01/17 06:45; Start 04/01/17 at 07:00; Stop 04/02/17 at 07:00 ; Status DC Dexamethasone Sodium Phosphate (Decadron) 20 mg STK-MED ONCE .ROUTE ; Start at 07:05; Stop 04/01/17 at 07:06; Status DC Ondansetron HCl (Zofran) 4 mg STK-MED ONCE .ROUTE ; Start 04/01/17 at 07:05; Stop 04/01/17 at 07:06; Status DC Propofol 20 ml @ As Directed STK-MED ONCE IV ; Start 04/01/17 at 07:05; Stop at 07:06; Status DC Lidocaine HCl (Lidocaine Pf 2% Vial) 5 ml STK-MED ONCE .ROUTE ; Start 04/01/17 at 07:05; Stop 04/01/17 at 07:06; Status DC Fentanyl Citrate (Fentanyl 2ml Vial) 100 mcg STK-MED ONCE .ROUTE ; Start at 07:06; Stop 04/01/17 at 07:07; Status DC Midazolam HCl (Versed) 2 mg STK-MED ONCE .ROUTE ; Start 04/01/17 at 07:06; Stop 04/01/17 at 07:07; Status DC Tranexamic Acid 1000 mg/Sodium Chloride 60 ml @ 60 mls/hr 1X PERIOP ONCE INJ Last administered on 04/01/17 07:45; Start 04/01/17 at 06:00; Stop 04/01/17 at 07:13; Status DC Tranexamic Acid 1000 mg/Sodium Chloride 60 ml @ 60 mls/hr 1X PERIOP ONCE INJ Last administered on 04/01/17 08:25; Start 04/01/17 at 08:00; Stop 04/01/17 at 08:59; Status DC Fentanyl Citrate (Fentanyl 2ml Vial) 100 mcg STK-MED ONCE .ROUTE ; Start at 07:28; Stop 04/01/17 at 07:29; Status DC Ephedrine Sulfate 50 mg STK-MED ONCE IV ; Start 04/01/17 at 07:54; Stop at 07:55; Status DC Propofol 20 ml @ As Directed STK-MED ONCE IV ; Start 04/01/17 at 08:28; Stop at 08:29; Status DC Tramadol HCl (Ultram) 50 mg PRN QID PRN PO PAIN; Start 04/01/17 at 09:15; Stop 04/01/17 at 11:17; Status DC Oxycodone/ Acetaminophen (Percocet 5/325) 1 tab PRN Q3HRS PRN PO PAIN; Start at 09:15 Oxycodone/ Acetaminophen (Percocet 7.5/ 325) 1 tab PRN Q3HRS PRN PO PAIN; Start 04/01/17 at 09:15 Tramadol HCl (Ultram) 100 mg PRN Q3HRS PRN PO PAIN Last administered on 11:07; Start 04/01/17 at 09:15 Morphine Sulfate 2 mg PRN Q1HR PRN IV PAIN; Start 04/01/17 at 09:15 Fentanyl Citrate (Fentanyl 2ml Vial) 25 mcg PRN Q1HR PRN IV PAIN; Start at 09:15 Diphenhydramine HCl (Benadryl) 25 mg PRN Q6HRS PRN IV ITCHING; Start 04/01/17 at 09:15 Multivitamins (Thera M Plus) 1 tab DAILY PO ; Start 04/02/17 at 09:00; Stop at 09:00; Status DC Senna/Docusate Sodium (Senna Plus) 1 tab DAILY PO Last administered on 09:44; Start 04/02/17 at 09:00 Dextrose/Sodium Chloride 1,000 ml @ 100 mls/hr Q10H IV Last administered on 16:03; Start 04/01/17 at 09:15 Prochlorperazine Maleate (Compazine) 10 mg PRN Q4HRS PRN PO NAUSEA/VOMITING; Start 04/01/17 at 09:15 Metoclopramide HCl (Reglan) 10 mg PRN Q4HRS PRN IV NAUSEA/VOMITING; Start 04/01 at 09:15 Magnesium Hydroxide (Milk Of Magnesia) 2,400 mg 1X PRN PRN PO CONSTIPATION; Start 04/02/17 at 06:00; Stop 04/03/17 at 05:59 Bisacodyl (Dulcolax Supp) 10 mg 1X PRN PRN [place] CONSTIPATION; Start 04/02/17 at 16:00; Stop 04/03/17 at 15:59 Acetaminophen (Tylenol) 650 mg PRN Q4HRS PRN PO MILD PAIN / TEMP; Start at 09:15 Zolpidem Tartrate (Ambien) 5 mg PRN QHS PRN PO INSOMNIA, MAY REPEAT IN 1HR; Start 04/01/17 at 09:15 Calcium Carbonate/ Glycine (Tums) 500 mg PRN QID PRN PO INDIGESTION; Start at 09:15 Morphine Sulfate 4 mg PRN Q1HR PRN IV PAIN; Start 04/01/17 at 09:15 Morphine Sulfate 6 mg PRN Q1HR PRN IV PAIN; Start 04/01/17 at 09:15 Morphine Sulfate 8 mg PRN Q1HR PRN IV PAIN; Start 04/01/17 at 09:15 Sodium Chloride (Normal Saline Flush) 10 ml QSHIFT PRN IV AFTER MEDS AND BLOOD DRAWS; Start 6/14/17 at 09:15 Fentanyl Citrate (Fentanyl 2ml Vial) 50 mcg PRN Q1HR PRN IV PAIN Last administered on 04/01/17 15:04; Start 04/01/17 at 09:15 Prochlorperazine Edisylate (Compazine) 10 mg PRN Q4HRS PRN IV NAUSEA/VOMITING; Start 04/01/17 at 09:15 Dextrose (Dextrose 50%-Water Syringe) 12.5 gm PRN Q15MIN PRN IV SEE COMMENTS; Start 04/01/17 at 09:15 Cefazolin Sodium 2 gm/Sodium Chloride 50 ml @ 100 mls/hr Q8HRS IV Last administered on 04/02/17 16:03; Start 04/01/17 at 11:00 Active Scripts Active Reported Tramadol Hcl 50 Mg Tablet 1-2 Tab PO PRN Q4-6HRS PRN LAST DOSE GIVEN: DATE: 03/20/2017 TIME: 1230 pm Ferrous Sulfate 325 Mg Tablet 1 Tab PO DAILY LAST DOSE GIVEN: DATE: 03/20/2017 TIME: 9 am Aspirin Ec (Aspirin) 325 Mg Tablet.dr 325 Mg PO BID LAST DOSE GIVEN: DATE: 03/20/2017 TIME: 9 am Xanax (Alprazolam) 0.25 Mg Tablet 0.25 Mg PO PRN Q6HRS PRN Meds not given this hospital admission. May resume home medications as approved by Physician. Ventolin Hfa Inhaler (Albuterol Sulfate) 18 Gm Hfa.aer.ad 2 Puff INH Q4HRS Meds not given this hospital admission. May resume home medications as approved by Physician. Calcium 500-Vit D3 600 Tablet (Calcium Carbonate/Vitamin D3) 1 Each Tablet 1 Each PO BID LAST DOSE GIVEN: DATE: 03/20/2017 TIME: 9 am Centrum Silver Tablet (Multivits-Min/Fa/Lycopene/Lut) 1 Each Tablet 1 Each PO DAILY LAST DOSE GIVEN: DATE: 03/20/2017 TIME: 9 am Glucosamine-Msm Caplet (Glucosamine Sulfate/Msm) 1 Each Tablet 1 Each PO DAILY Meds not given this hospital admission. May resume home medications as approved by Physician. Celebrex (Celecoxib) 200 Mg Capsule 1 Cap PO DAILY LAST DOSE GIVEN: DATE: 03/20/2017 TIME: 9 am Diovan (Valsartan) 160 Mg Tablet 160 Mg PO DAILY LAST DOSE GIVEN: DATE: 03/20/2017 TIME: 9 am Pantoprazole Sodium 40 Mg Tablet.dr 40 Mg PO DAILY LAST DOSE GIVEN: DATE: 03/20/2017 TIME: 7 am Vitals/I & O Vital Sign - Last 24 Hours 04/01/17 04/01/17 04/01/17 04/01/17 18:05 19:00 19:18 20:00 Temp 98.2 98.2 Pulse 79 Resp 18 B/P (MAP) 151/67 (95) Pulse Ox 94 95 O2 Delivery Nasal Cannula Room Air Room Air Room Air 04/01/17 04/01/17 04/01/17 04/02/17 21:18 23:00 23:53 01:36 Temp 98.3 98.3 Pulse 72 Resp 16 18 16 B/P (MAP) 137/61 (86) Pulse Ox 93 93 O2 Delivery Room Air Room Air Room Air O2 Flow Rate 2.0 04/02/17 04/02/17 04/02/17 04/02/17 01:58 02:42 03:00 06:28 Temp 98.0 98.0 Pulse 75 Resp 16 18 B/P (MAP) 119/56 (77) Pulse Ox 94 94 O2 Delivery Room Air Room Air Room Air Room Air 04/02/17 04/02/17 04/02/17 04/02/17 07:00 07:40 09:45 11:12 Temp 97.9 97.9 Pulse 83 83 Resp 20 B/P (MAP) 132/74 (93) 132/74 Pulse Ox 91 98 O2 Delivery Room Air Room Air Room Air 04/02/17 04/02/17 04/02/17 11:14 15:02 15:41 Temp 98.6 98.4 98.6 98.4 Pulse 66 84 Resp 20 20 B/P (MAP) 144/70 (94) 136/66 (89) Pulse Ox 94 93 O2 Delivery Room Air Room Air Room Air Intake and Output 04/01/17 04/01/17 04/02/17 15:00 23:00 07:00 Intake Total 1000 ml 600 ml 398 ml Output Total 100 ml 90 ml Balance 900 ml 510 ml 398 ml DIANN ANDRADE MD Apr 02, 2017 17:45
[2017-04-02 19:00] VITALS: BP 127/67
[2017-04-02 23:00] VITALS: BP 166/78
[2017-04-03 03:00] VITALS: BP 177/77
[2017-04-03] MEDS: ALBUTEROL SULFATE 2.5 MG/3 ML NEBU. NEB SCH ×5 (03:53→21:05)
[2017-04-03 05:53] LABS: HEMATOCRIT 24.5 % (36.0-47.0); HEMOGLOBIN 8.4 g/dL (12.0-15.5); RED BLOOD COUNT 2.95 x10^6/uL (3.50-5.40); RED CELL DISTRIBUTION WIDTH 14.2 % (11.5-14.5); WHITE BLOOD COUNT 11.3 x10^3/uL (4.0-11.0)
[2017-04-03 06:16] LABS: CALCIUM 8.6 mg/dL (8.5-10.1); CREATININE 1.3 mg/dL (0.6-1.0); GFR 42.4; POTASSIUM 3.5 mmol/L (3.5-5.1)
[2017-04-03 07:00] VITALS: BP 139/85
--- NOTE | 2017-04-03 08:53 | PDOC ---
Infectious Disease Note Subjective Subjective Doing ok. Pain ok. + Flatus Has not walked much ROS ROS GEN: Denies fevers, chills, sweats HEENT: Denies blurred vision, sore throat CV: Denies chest pain RESP: Denies shortness of air, cough GI: Denies n/v/d NEURO: Denies confusion, dizziness MSK: Denies weakness Vital Sign Vital Signs Vital Signs Date Time Temp Pulse Resp B/P (MAP) Pulse Ox O2 Delivery O2 Flow Rate FiO2 04/03/17 07:18 97 Room Air 04/03/17 07:00 98.8 77 20 139/85 (103) 98.8 Physical Exam PHYSICAL EXAM GENERAL: NAD, Alert in chair HEENT: PERRL, OC/OP -clear NECK: Supple, no JVD, no LN LUNGS: Clear HEART: S1S2, no gallop, no murmur ABD: Soft, NT, no organomegaly, no rebound, obese EXT: No edema, no cyanosis. LLE - drain out. No erythema or warmth. topical vac in place GLOVE MAKER: Alert, oriented x 3, no focal neurologic deficit SKIN: No rash IV: PICC - clean Labs Lab Laboratory Tests Test 04/03/17 05:40 White Blood Count 11.3 x10^3/uL (4.0-11.0) Red Blood Count 2.95 x10^6/uL (3.50-5.40) Hemoglobin 8.4 g/dL (12.0-15.5) Hematocrit 24.5 % (36.0-47.0) Mean Corpuscular Volume 83 fL (79-100) Mean Corpuscular Hemoglobin 28 pg (25-35) Mean Corpuscular Hemoglobin Concent 34 g/dL (31-37) Red Cell Distribution Width 14.2 % (11.5-14.5) Platelet Count 283 x10^3/uL (140-400) Sodium Level 136 mmol/L (136-145) Potassium Level 3.5 mmol/L (3.5-5.1) Chloride Level 102 mmol/L (98-107) Carbon Dioxide Level 29 mmol/L (21-32) Anion Gap 5 (6-14) Blood Urea Nitrogen 8 mg/dL (7-20) Creatinine 1.3 mg/dL (0.6-1.0) Estimated GFR (Cockcroft-Gault) 42.4 Glucose Level 118 mg/dL (70-99) Calcium Level 8.6 mg/dL (8.5-10.1) Objective Assessment Fever -better Leukocytosis - now s/p Dexamethasone 04/01 - better L TKA infection s/p I and D 04/01 MSSA Plan Plan of Care Discont Vanc Cont Cefazolin F/u labs and final cults Social Service consult EMILIA BETHEA MD Apr 03, 2017 08:53
--- NOTE | 2017-04-03 09:01 | PDOC ---
PROGRESS NOTES Subjective Subjective Patient continues to improve. Patient still has not had b.m. Sensitivities confirm MSSA. Objective Objective Vital Signs Date Time Temp Pulse Resp B/P (MAP) Pulse Ox O2 Delivery O2 Flow Rate FiO2 04/03/17 07:18 97 Room Air 04/03/17 07:00 98.8 77 20 139/85 (103) 98.8 04/01/17 23:53 2.0 Intake and Output 04/03/17 06:59 Intake Total 1650 ml Balance 1650 ml Intake Oral 1650 ml # Voids 5 Physical Exam Abdomen: Normal bowel sounds, Soft, No tenderness Heart: Regular rate Extremities: No edema, Other (wound VAC in place) General: Alert Lungs: Clear to auscultation Assessment Assessment Problems Medical Problems: (1) Left knee pain Status: Acute (2) Leukocytosis Status: Acute Left Knee pain and Fever-resolved Leukocytosis - now s/p Dexamethasone 04/01 L TKA infection s/p I and D 04/01 Methicillin sensitive staph aureus Constipation Plan Plan of Care Continue IV antibiotics. Increase activity. Start cathartics for constipation. Comment Review of Relevant I have reviewed the following items brenna (where applicable) has been applied. Labs Laboratory Tests Test 04/01/17 10:40 04/02/17 04:35 04/03/17 05:40 Vancomycin Level Trough 17.0 mcg/mL (10.0-20.0) Vancomycin Last Dose Date 03/31/17 Vancomycin Last Dose Time 2230 Erythrocyte Sedimentation Rate 62 (0-25) Sodium Level 139 mmol/L (136-145) 136 mmol/L (136-145) Potassium Level 3.8 mmol/L (3.5-5.1) 3.5 mmol/L (3.5-5.1) Chloride Level 104 mmol/L (98-107) 102 mmol/L (98-107) Carbon Dioxide Level 30 mmol/L (21-32) 29 mmol/L (21-32) Anion Gap 5 (6-14) 5 (6-14) Blood Urea Nitrogen 10 mg/dL (7-20) 8 mg/dL (7-20) Creatinine 1.2 mg/dL (0.6-1.0) 1.3 mg/dL (0.6-1.0) Estimated GFR (Cockcroft-Gault) 46.5 42.4 Glucose Level 113 mg/dL (70-99) 118 mg/dL (70-99) Calcium Level 8.4 mg/dL (8.5-10.1) 8.6 mg/dL (8.5-10.1) White Blood Count 11.3 x10^3/uL (4.0-11.0) Red Blood Count 2.95 x10^6/uL (3.50-5.40) Hemoglobin 8.4 g/dL (12.0-15.5) Hematocrit 24.5 % (36.0-47.0) Mean Corpuscular Volume 83 fL (79-100) Mean Corpuscular Hemoglobin 28 pg (25-35) Mean Corpuscular Hemoglobin Concent 34 g/dL (31-37) Red Cell Distribution Width 14.2 % (11.5-14.5) Platelet Count 283 x10^3/uL (140-400) Laboratory Tests Test 04/03/17 05:40 White Blood Count 11.3 x10^3/uL (4.0-11.0) Red Blood Count 2.95 x10^6/uL (3.50-5.40) Hemoglobin 8.4 g/dL (12.0-15.5) Hematocrit 24.5 % (36.0-47.0) Mean Corpuscular Volume 83 fL (79-100) Mean Corpuscular Hemoglobin 28 pg (25-35) Mean Corpuscular Hemoglobin Concent 34 g/dL (31-37) Red Cell Distribution Width 14.2 % (11.5-14.5) Platelet Count 283 x10^3/uL (140-400) Sodium Level 136 mmol/L (136-145) Potassium Level 3.5 mmol/L (3.5-5.1) Chloride Level 102 mmol/L (98-107) Carbon Dioxide Level 29 mmol/L (21-32) Anion Gap 5 (6-14) Blood Urea Nitrogen 8 mg/dL (7-20) Creatinine 1.3 mg/dL (0.6-1.0) Estimated GFR (Cockcroft-Gault) 42.4 Glucose Level 118 mg/dL (70-99) Calcium Level 8.6 mg/dL (8.5-10.1) Microbiology 03/30/17 Blood Culture - Preliminary, Resulted NO GROWTH AFTER 3 DAYS 04/01/17 AFB Specimen Processing Tissue - Final, Resulted 04/01/17 Acid Fast Bacilli Culture, Resulted Pending 04/01/17 Gram Stain - Final, Resulted 04/01/17 Fungal Culture, Resulted Pending 04/01/17 Fungal Culture Result 1, Resulted Pending 03/30/17 Urine Culture - Final, Complete 03/30/17 Urine Culture Result 1 (CHUCKY) - Final, Complete Medications Current Medications Ondansetron HCl (Zofran) 4 mg STK-MED ONCE .ROUTE ; Start 03/30/17 at 18:45; Stop 03/30/17 at 18:46; Status DC Sodium Chloride 1,000 ml @ 1,000 mls/hr 1X ONCE IV Last administered on 19:02; Start 03/30/17 at 19:00; Stop 03/30/17 at 19:59; Status DC Ondansetron HCl (Zofran) 4 mg 1X ONCE IV Last administered on 03/30/17 19:01 ; Start 03/30/17 at 19:00; Stop 03/30/17 at 19:01; Status DC Acetaminophen (Tylenol) 1,000 mg 1X ONCE PO Last administered on 03/30/17 19: 36; Start 03/30/17 at 19:45; Stop 03/30/17 at 19:46; Status DC Ondansetron HCl (Zofran) 4 mg PRN Q8HRS PRN IV NAUSEA/VOMITING Last administered on 03/31/17 17:38; Start 03/30/17 at 20:45; Stop 03/31/17 at 20:44 ; Status DC Fentanyl Citrate (Fentanyl 2ml Vial) 50 mcg PRN Q2HR PRN IV PAIN Last administered on 03/31/17 17:48; Start 03/30/17 at 20:45; Stop 03/31/17 at 20:44 ; Status DC Acetaminophen (Tylenol) 650 mg PRN Q4HRS PRN PO FEVER; Start 03/30/17 at 20:45 ; Stop 03/31/17 at 20:44; Status DC Lidocaine HCl 20 ml STK-MED ONCE .ROUTE ; Start 03/30/17 at 21:02; Stop at 21:03; Status DC Hydromorphone HCl (Dilaudid) 2 mg STK-MED ONCE .ROUTE ; Start 03/30/17 at 21:12 ; Stop 03/30/17 at 21:13; Status DC Vancomycin HCl (Vanco Per Pharmacy) 1 each PRN DAILY PRN MC SEE COMMENTS Last administered on 04/02/17 13:15; Start 03/30/17 at 22:00; Stop 04/03/17 at 08:29 ; Status DC Piperacillin Sod/ Tazobactam Sod 4.5 gm/Sodium Chloride 100 ml @ 200 mls/hr Q6HRS IV Last administered on 04/01/17 05:13; Start 03/31/17 at 00:00; Stop at 09:26; Status DC Vancomycin HCl 2 gm/Sodium Chloride 500 ml @ 250 mls/hr 1X ONCE IV Last administered on 03/30/17 22:52; Start 03/30/17 at 22:00; Stop 03/30/17 at 23:59 ; Status DC Vancomycin HCl 1.5 gm/Sodium Chloride 500 ml @ 250 mls/hr Q12H IV Last administered on 04/02/17 21:57; Start 03/31/17 at 10:30; Stop 04/03/17 at 08:29 ; Status DC Vancomycin HCl 1 each 1X ONCE MC ; Start 04/01/17 at 10:00; Stop 04/01/17 at 10 :01; Status DC Alprazolam (Xanax) 0.25 mg PRN Q6HRS PRN PO ANXIETY / AGITATION; Start at 11:15 Aspirin (Ecotrin) 325 mg BID PO Last administered on 04/02/17 20:30; Start at 21:00 Celecoxib (CeleBREX) 200 mg DAILY PO Last administered on 04/01/17 11:40; Start 04/01/17 at 09:00 Ferrous Sulfate (Feosol) 325 mg DAILY PO Last administered on 04/02/17 09:46; Start 03/31/17 at 12:00 Pantoprazole Sodium (Protonix) 40 mg DAILY PO Last administered on 04/02/17 09 :45; Start 03/31/17 at 11:00 Tramadol HCl (Ultram) 50 mg PRN Q6HRS PRN PO PAIN Last administered on 11:06; Start 03/31/17 at 11:15 Non-Formulary Medication 2 puff Q4HRS INH ; Start 03/31/17 at 12:00; Status UNV Calcium/Vitamin D (Oscal D 500mg/ 200uts) 1 tab BIDWMEALS PO Last administered on 04/02/17 18:31; Start 03/31/17 at 12:00 Non-Formulary Medication 1 each DAILY PO ; Start 04/01/17 at 09:00; Stop at 09:00; Status DC Multivitamins (Thera M Plus) 1 tab DAILY PO Last administered on 04/02/17 09: 45; Start 04/01/17 at 09:00 Losartan Potassium (Cozaar) 100 mg DAILY PO Last administered on 04/02/17 09: 45; Start 03/31/17 at 12:00 Enoxaparin Sodium (Lovenox 40mg Syringe) 40 mg BID SQ Last administered on 04/02 20:31; Start 03/31/17 at 12:00 Albuterol Sulfate (Ventolin Neb Soln) 2.5 mg Q4HRS NEB Last administered on 07:17; Start 03/31/17 at 12:00 Ondansetron HCl (Zofran) 4 mg PRN Q6HRS PRN IV NAUSEA/VOMITING; Start 04/01/17 at 07:00; Stop 04/02/17 at 06:59; Status DC Fentanyl Citrate (Fentanyl 2ml Vial) 25 mcg PRN Q5MIN PRN IV MILD PAIN; Start 04/01/17 at 07:00; Stop 04/02/17 at 06:59; Status DC Fentanyl Citrate (Fentanyl 2ml Vial) 50 mcg PRN Q5MIN PRN IV MODERATE PAIN Last administered on 04/01/17 10:14; Start 04/01/17 at 07:00; Stop 04/02/17 at 06:59; Status DC Ringer's Solution 1,000 ml @ 30 mls/hr Q24H IV Last administered on 04/01/17 06:58; Start 04/01/17 at 07:00; Stop 04/01/17 at 18:59; Status DC Lidocaine HCl 2 ml PRN 1X PRN ID PRIOR TO IV START; Start 04/01/17 at 07:00; Stop 04/02/17 at 06:59; Status DC Prochlorperazine Edisylate (Compazine) 5 mg PACU PRN PRN IV NAUSEA, MRX1 Last administered on 04/01/17 06:45; Start 04/01/17 at 07:00; Stop 04/02/17 at 07:00 ; Status DC Dexamethasone Sodium Phosphate (Decadron) 20 mg STK-MED ONCE .ROUTE ; Start at 07:05; Stop 04/01/17 at 07:06; Status DC Ondansetron HCl (Zofran) 4 mg STK-MED ONCE .ROUTE ; Start 04/01/17 at 07:05; Stop 04/01/17 at 07:06; Status DC Propofol 20 ml @ As Directed STK-MED ONCE IV ; Start 04/01/17 at 07:05; Stop at 07:06; Status DC Lidocaine HCl (Lidocaine Pf 2% Vial) 5 ml STK-MED ONCE .ROUTE ; Start 04/01/17 at 07:05; Stop 04/01/17 at 07:06; Status DC Fentanyl Citrate (Fentanyl 2ml Vial) 100 mcg STK-MED ONCE .ROUTE ; Start at 07:06; Stop 04/01/17 at 07:07; Status DC Midazolam HCl (Versed) 2 mg STK-MED ONCE .ROUTE ; Start 04/01/17 at 07:06; Stop 04/01/17 at 07:07; Status DC Tranexamic Acid 1000 mg/Sodium Chloride 60 ml @ 60 mls/hr 1X PERIOP ONCE INJ Last administered on 04/01/17 07:45; Start 04/01/17 at 06:00; Stop 04/01/17 at 07:13; Status DC Tranexamic Acid 1000 mg/Sodium Chloride 60 ml @ 60 mls/hr 1X PERIOP ONCE INJ Last administered on 04/01/17 08:25; Start 04/01/17 at 08:00; Stop 04/01/17 at 08:59; Status DC Fentanyl Citrate (Fentanyl 2ml Vial) 100 mcg STK-MED ONCE .ROUTE ; Start at 07:28; Stop 04/01/17 at 07:29; Status DC Ephedrine Sulfate 50 mg STK-MED ONCE IV ; Start 04/01/17 at 07:54; Stop at 07:55; Status DC Propofol 20 ml @ As Directed STK-MED ONCE IV ; Start 04/01/17 at 08:28; Stop at 08:29; Status DC Tramadol HCl (Ultram) 50 mg PRN QID PRN PO PAIN; Start 04/01/17 at 09:15; Stop 04/01/17 at 11:17; Status DC Oxycodone/ Acetaminophen (Percocet 5/325) 1 tab PRN Q3HRS PRN PO PAIN; Start at 09:15 Oxycodone/ Acetaminophen (Percocet 7.5/ 325) 1 tab PRN Q3HRS PRN PO PAIN; Start 04/01/17 at 09:15 Tramadol HCl (Ultram) 100 mg PRN Q3HRS PRN PO PAIN Last administered on 11:07; Start 04/01/17 at 09:15 Morphine Sulfate 2 mg PRN Q1HR PRN IV PAIN; Start 04/01/17 at 09:15 Fentanyl Citrate (Fentanyl 2ml Vial) 25 mcg PRN Q1HR PRN IV PAIN; Start at 09:15 Diphenhydramine HCl (Benadryl) 25 mg PRN Q6HRS PRN IV ITCHING; Start 04/01/17 at 09:15 Multivitamins (Thera M Plus) 1 tab DAILY PO ; Start 04/02/17 at 09:00; Stop at 09:00; Status DC Senna/Docusate Sodium (Senna Plus) 1 tab DAILY PO Last administered on 09:44; Start 04/02/17 at 09:00 Dextrose/Sodium Chloride 1,000 ml @ 100 mls/hr Q10H IV Last administered on 20:35; Start 04/01/17 at 09:15 Prochlorperazine Maleate (Compazine) 10 mg PRN Q4HRS PRN PO NAUSEA/VOMITING; Start 04/01/17 at 09:15 Metoclopramide HCl (Reglan) 10 mg PRN Q4HRS PRN IV NAUSEA/VOMITING; Start 04/01 at 09:15 Magnesium Hydroxide (Milk Of Magnesia) 2,400 mg 1X PRN PRN PO CONSTIPATION; Start 04/02/17 at 06:00; Stop 04/03/17 at 05:59; Status DC Bisacodyl (Dulcolax Supp) 10 mg 1X PRN PRN ND CONSTIPATION; Start 04/02/17 at 16:00; Stop 04/03/17 at 15:59 Acetaminophen (Tylenol) 650 mg PRN Q4HRS PRN PO MILD PAIN / TEMP; Start at 09:15 Zolpidem Tartrate (Ambien) 5 mg PRN QHS PRN PO INSOMNIA, MAY REPEAT IN 1HR; Start 04/01/17 at 09:15 Calcium Carbonate/ Glycine (Tums) 500 mg PRN QID PRN PO INDIGESTION; Start at 09:15 Morphine Sulfate 4 mg PRN Q1HR PRN IV PAIN; Start 04/01/17 at 09:15 Morphine Sulfate 6 mg PRN Q1HR PRN IV PAIN; Start 04/01/17 at 09:15 Morphine Sulfate 8 mg PRN Q1HR PRN IV PAIN; Start 04/01/17 at 09:15 Sodium Chloride (Normal Saline Flush) 10 ml QSHIFT PRN IV AFTER MEDS AND BLOOD DRAWS; Start 04/01/17 at 09:15 Fentanyl Citrate (Fentanyl 2ml Vial) 50 mcg PRN Q1HR PRN IV PAIN Last administered on 04/01/17 15:04; Start 04/01/17 at 09:15 Prochlorperazine Edisylate (Compazine) 10 mg PRN Q4HRS PRN IV NAUSEA/VOMITING Last administered on 04/03/17 03:52; Start 04/01/17 at 09:15 Dextrose (Dextrose 50%-Water Syringe) 12.5 gm PRN Q15MIN PRN IV SEE COMMENTS; Start 04/01/17 at 09:15 Cefazolin Sodium 2 gm/Sodium Chloride 50 ml @ 100 mls/hr Q8HRS IV Last administered on 04/03/17 05:28; Start 04/01/17 at 11:00 Active Scripts Active Reported Tramadol Hcl 50 Mg Tablet 1-2 Tab PO PRN Q4-6HRS PRN LAST DOSE GIVEN: DATE: 03/20/2017 TIME: 1230 pm Ferrous Sulfate 325 Mg Tablet 1 Tab PO DAILY LAST DOSE GIVEN: DATE: 03/20/2017 TIME: 9 am Aspirin Ec (Aspirin) 325 Mg Tablet. 325 Mg PO BID LAST DOSE GIVEN: DATE: 03/20/2017 TIME: 9 am Xanax (Alprazolam) 0.25 Mg Tablet 0.25 Mg PO PRN Q6HRS PRN Meds not given this hospital admission. May resume home medications as approved by Physician. Ventolin Hfa Inhaler (Albuterol Sulfate) 18 Gm Hfa.aer.ad 2 Puff INH Q4HRS Meds not given this hospital admission. May resume home medications as approved by Physician. Calcium 500-Vit D3 600 Tablet (Calcium Carbonate/Vitamin D3) 1 Each Tablet 1 Each PO BID LAST DOSE GIVEN: DATE: 03/20/2017 TIME: 9 am Centrum Silver Tablet (Multivits-Min/Fa/Lycopene/Lut) 1 Each Tablet 1 Each PO DAILY LAST DOSE GIVEN: DATE: 03/20/2017 TIME: 9 am Glucosamine-Msm Caplet (Glucosamine Sulfate/Msm) 1 Each Tablet 1 Each PO DAILY Meds not given this hospital admission. May resume home medications as approved by Physician. Celebrex (Celecoxib) 200 Mg Capsule 1 Cap PO DAILY LAST DOSE GIVEN: DATE: 03/20/2017 TIME: 9 am Diovan (Valsartan) 160 Mg Tablet 160 Mg PO DAILY LAST DOSE GIVEN: DATE: 03/20/2017 TIME: 9 am Pantoprazole Sodium 40 Mg Tablet. 40 Mg PO DAILY LAST DOSE GIVEN: DATE: 03/20/2017 TIME: 7 am Vitals/I & O Vital Sign - Last 24 Hours 04/02/17 04/02/17 04/02/17 04/02/17 09:45 11:12 11:14 15:02 Temp 98.6 98.4 98.6 98.4 Pulse 83 66 84 Resp 20 20 B/P (MAP) 132/74 144/70 (94) 136/66 (89) Pulse Ox 94 93 O2 Delivery Room Air Room Air Room Air 04/02/17 04/02/17 04/02/17 04/02/17 15:41 19:00 20:00 20:37 Temp 98.4 98.4 Pulse 72 Resp 20 B/P (MAP) 127/67 (87) Pulse Ox 95 96 O2 Delivery Room Air Room Air Room Air Room Air 04/02/17 04/02/17 04/03/17 04/03/17 23:00 23:31 03:00 03:54 Temp 97.9 98.1 97.9 98.1 Pulse 84 86 Resp 20 20 B/P (MAP) 166/78 (107) 177/77 (110) Pulse Ox 96 97 O2 Delivery Room Air Room Air Room Air Room Air 04/03/17 04/03/17 07:00 07:18 Temp 98.8 98.8 Pulse 77 Resp 20 B/P (MAP) 139/85 (103) Pulse Ox 97 97 O2 Delivery Room Air Room Air Intake and Output 04/02/17 04/02/17 04/03/17 14:59 22:59 06:59 Intake Total 600 ml 850 ml 200 ml Balance 600 ml 850 ml 200 ml DIANN ANDRADE MD Apr 03, 2017 09:01
[2017-04-03] MEDS ORDERED: MAGNESIUM HYDROXIDE 2,400 MG/30 ML ORAL.SUSP. PO PRN (09:30)
[2017-04-03] MEDS: ASPIRIN ENTERIC COATED 325 MG TABLET.DR. PO SCH ×2 (09:51→21:49)
[2017-04-03] MEDS: PANTOPRAZOLE 40 MG TABLET.DR. PO SCH (09:51)
[2017-04-03] MEDS: FERROUS SULFATE 325 MG TABLET. PO SCH (09:51)
[2017-04-03] MEDS: CELECOXIB 200 MG CAPSULE. PO SCH (09:52)
[2017-04-03] MEDS: SENNOSIDES/DOCUSATE 8.6/50MG TABLET. PO SCH (09:52)
[2017-04-03] MEDS: MULTIVITAMIN with MINERAL TABLET. PO SCH (09:52)
[2017-04-03] MEDS: CALCIUM CARB/VIT D3 500/200 TABLET. PO SCH ×2 (09:52→17:58)
[2017-04-03] MEDS: ENOXAPARIN 40 MG/0.4 ML SYRINGE. SQ SCH ×2 (09:53→21:50)
[2017-04-03] MEDS: POLYETHYLENE GLYCOL 3350 17 GM PACKET. PO SCH (09:53)
[2017-04-03] MEDS: LOSARTAN POTASSIUM 50 MG TABLET. PO SCH (09:53)
[2017-04-03 11:00] VITALS: BP 183/82
[2017-04-03] MEDS: IV DEXTROSE 5 %-0.45 % NACL 1,000 ML IV SCH ×2 (11:15→21:15)
[2017-04-03] MEDS: METOCLOPRAMIDE HCL 10 MG/2 ML VIAL. IV PRN (12:07)
[2017-04-03 15:00] VITALS: BP 172/80
[2017-04-03 19:25] VITALS: BP 162/78
--- NOTE | 2017-04-03 19:29 | PDOC ---
PROGRESS NOTES Subjective Subjective Feeling better Objective Vital Signs Vital Signs Date Time Temp Pulse Resp B/P (MAP) Pulse Ox O2 Delivery O2 Flow Rate FiO2 04/03/17 15:52 Room Air 04/03/17 15:00 98.4 85 20 172/80 (110) 95 98.4 04/01/17 23:53 2.0 Labs Laboratory Tests Test 04/02/17 04:35 04/03/17 05:40 Erythrocyte Sedimentation Rate 62 (0-25) Sodium Level 139 mmol/L (136-145) 136 mmol/L (136-145) Potassium Level 3.8 mmol/L (3.5-5.1) 3.5 mmol/L (3.5-5.1) Chloride Level 104 mmol/L (98-107) 102 mmol/L (98-107) Carbon Dioxide Level 30 mmol/L (21-32) 29 mmol/L (21-32) Anion Gap 5 (6-14) 5 (6-14) Blood Urea Nitrogen 10 mg/dL (7-20) 8 mg/dL (7-20) Creatinine 1.2 mg/dL (0.6-1.0) 1.3 mg/dL (0.6-1.0) Estimated GFR (Cockcroft-Gault) 46.5 42.4 Glucose Level 113 mg/dL (70-99) 118 mg/dL (70-99) Calcium Level 8.4 mg/dL (8.5-10.1) 8.6 mg/dL (8.5-10.1) White Blood Count 11.3 x10^3/uL (4.0-11.0) Red Blood Count 2.95 x10^6/uL (3.50-5.40) Hemoglobin 8.4 g/dL (12.0-15.5) Hematocrit 24.5 % (36.0-47.0) Mean Corpuscular Volume 83 fL (79-100) Mean Corpuscular Hemoglobin 28 pg (25-35) Mean Corpuscular Hemoglobin Concent 34 g/dL (31-37) Red Cell Distribution Width 14.2 % (11.5-14.5) Platelet Count 283 x10^3/uL (140-400) Laboratory Tests Test 04/03/17 05:40 White Blood Count 11.3 x10^3/uL (4.0-11.0) Red Blood Count 2.95 x10^6/uL (3.50-5.40) Hemoglobin 8.4 g/dL (12.0-15.5) Hematocrit 24.5 % (36.0-47.0) Mean Corpuscular Volume 83 fL (79-100) Mean Corpuscular Hemoglobin 28 pg (25-35) Mean Corpuscular Hemoglobin Concent 34 g/dL (31-37) Red Cell Distribution Width 14.2 % (11.5-14.5) Platelet Count 283 x10^3/uL (140-400) Sodium Level 136 mmol/L (136-145) Potassium Level 3.5 mmol/L (3.5-5.1) Chloride Level 102 mmol/L (98-107) Carbon Dioxide Level 29 mmol/L (21-32) Anion Gap 5 (6-14) Blood Urea Nitrogen 8 mg/dL (7-20) Creatinine 1.3 mg/dL (0.6-1.0) Estimated GFR (Cockcroft-Gault) 42.4 Glucose Level 118 mg/dL (70-99) Calcium Level 8.6 mg/dL (8.5-10.1) Assessment Assessment looking well now after I&D and antibiotics. Problems: Plan Plan of Care will ask Justice to double check Cefazolin in light of penicillinase MSSA sensitivities. Does she need oxacillin or dicloxacillin? Planning home health and home IV antibiotics, with discharge home on Thursday. Continue PT and IV antibiotics. EMA MONTANA MD Apr 03, 2017 19:29
[2017-04-03 23:31] VITALS: BP 160/72
[2017-04-04 03:20] VITALS: BP 160/62
[2017-04-04] MEDS: ALBUTEROL SULFATE 2.5 MG/3 ML NEBU. NEB SCH ×5 (06:00→22:00)
[2017-04-04 07:00] VITALS: BP 185/82
[2017-04-04] MEDS: IV DEXTROSE 5 %-0.45 % NACL 1,000 ML IV SCH ×2 (07:15→17:15)
[2017-04-04 08:18] LABS: HEMOGLOBIN 8.3 g/dL (12.0-15.5)
[2017-04-04] MEDS: POLYETHYLENE GLYCOL 3350 17 GM PACKET. PO SCH (09:00)
[2017-04-04] MEDS: SENNOSIDES/DOCUSATE 8.6/50MG TABLET. PO SCH (09:00)
[2017-04-04] MEDS: FERROUS SULFATE 325 MG TABLET. PO SCH (09:04)
[2017-04-04] MEDS: CELECOXIB 200 MG CAPSULE. PO SCH (09:04)
[2017-04-04] MEDS: ASPIRIN ENTERIC COATED 325 MG TABLET.DR. PO SCH ×2 (09:04→21:22)
[2017-04-04] MEDS: PANTOPRAZOLE 40 MG TABLET.DR. PO SCH (09:05)
[2017-04-04] MEDS: CALCIUM CARB/VIT D3 500/200 TABLET. PO SCH ×2 (09:05→17:16)
[2017-04-04] MEDS: MULTIVITAMIN with MINERAL TABLET. PO SCH (09:05)
[2017-04-04] MEDS: ENOXAPARIN 40 MG/0.4 ML SYRINGE. SQ SCH ×2 (09:06→21:22)
[2017-04-04] MEDS: LOSARTAN POTASSIUM 50 MG TABLET. PO SCH (09:06)
[2017-04-04 11:00] VITALS: BP 181/73
--- NOTE | 2017-04-04 11:38 | PDOC ---
PROGRESS NOTES Subjective Subjective Looks well and feels well Objective Vital Signs Vital Signs Date Time Temp Pulse Resp B/P (MAP) Pulse Ox O2 Delivery O2 Flow Rate FiO2 04/04/17 11:05 Room Air 04/04/17 11:00 97.2 72 20 181/73 (109) 99 97.2 04/01/17 23:53 2.0 Physical Exam Prevena intact and dry. Knee appears benign. Calf soft NT. Good AROM ankle without pain. Labs Laboratory Tests Test 04/03/17 05:40 04/04/17 06:35 White Blood Count 11.3 x10^3/uL (4.0-11.0) Red Blood Count 2.95 x10^6/uL (3.50-5.40) Hemoglobin 8.4 g/dL (12.0-15.5) 8.3 g/dL (12.0-15.5) Hematocrit 24.5 % (36.0-47.0) 25.0 % (36.0-47.0) Mean Corpuscular Volume 83 fL (79-100) Mean Corpuscular Hemoglobin 28 pg (25-35) Mean Corpuscular Hemoglobin Concent 34 g/dL (31-37) 33 g/dL (31-37) Red Cell Distribution Width 14.2 % (11.5-14.5) Platelet Count 283 x10^3/uL (140-400) Sodium Level 136 mmol/L (136-145) Potassium Level 3.5 mmol/L (3.5-5.1) Chloride Level 102 mmol/L (98-107) Carbon Dioxide Level 29 mmol/L (21-32) Anion Gap 5 (6-14) Blood Urea Nitrogen 8 mg/dL (7-20) Creatinine 1.3 mg/dL (0.6-1.0) Estimated GFR (Cockcroft-Gault) 42.4 Glucose Level 118 mg/dL (70-99) Calcium Level 8.6 mg/dL (8.5-10.1) Laboratory Tests Test 04/04/17 06:35 Hemoglobin 8.3 g/dL (12.0-15.5) Hematocrit 25.0 % (36.0-47.0) Mean Corpuscular Hemoglobin Concent 33 g/dL (31-37) Assessment Assessment infected TKA, now on antibiotics and post debridement Problems: Plan Plan of Care Continue antibiotics. I sent a text to Dr. Lockhart about possible antibiotic switch due to penicillinase organism. Nafcillin? Dicloxacillin? etc. seems preferred. Plan for home on Thursday with PICC and outpatient intravenous antibiotics for 6 weeks (until May 13). Office follow up with me on Sunday 04/08 9:00 a.m. EMA MONTANA MD Apr 04, 2017 11:38
--- NOTE | 2017-04-04 13:06 | PDOC ---
Infectious Disease Note Subjective Subjective Comfortable, pain controlled Ambulating in queen earlier with PT Fever last night 101.8 ROS ROS GEN: Denies chills, sweats CV: Denies chest pain RESP: Denies shortness of air, cough GI: Denies n/v/d Vital Sign Vital Signs Vital Signs Date Time Temp Pulse Resp B/P (MAP) Pulse Ox O2 Delivery O2 Flow Rate FiO2 04/04/17 11:05 Room Air 04/04/17 11:00 97.2 72 20 181/73 (109) 99 97.2 Physical Exam PHYSICAL EXAM GENERAL: Up in chair, relaxed appearance HEENT: Oral cavity pink, moist LUNGS: Clear HEART: S1S2, no gallop, no murmur ABD: Soft, NT, BS present EXT: No edema, no cyanosis; Wound vac in place left knee. No area redness METAL DRESSER: Alert, oriented x 3, no focal neurologic deficit SKIN: No rash RUE-PICC. clean Labs Lab Laboratory Tests Test 04/04/17 06:35 Hemoglobin 8.3 g/dL (12.0-15.5) Hematocrit 25.0 % (36.0-47.0) Mean Corpuscular Hemoglobin Concent 33 g/dL (31-37) Objective Assessment Fever -better Leukocytosis - now s/p Dexamethasone 04/01 - better Left TKA infection s/p I and D 04/01 MSSA Plan Plan of Care Cont Cefazolin. Monitor labs/cultures and temp Social Service consult Attending Co-Sign The patient was seen and interviewed as well as examined at the bedside. The chart was reviewed. The case was discussed. Agree with the plan of care. ARLENE BARTON APRN Apr 04, 2017 13:06 ALIVIA ARELLANO MD Apr 04, 2017 16:00
[2017-04-04 15:00] VITALS: BP 175/82
[2017-04-04 15:36] LABS: % SAT IRON 5 % (15-34); IRON,SERUM 14 ug/dL (50-170)
[2017-04-04 19:00] VITALS: BP 182/84
[2017-04-04 23:00] VITALS: BP 183/74
--- NOTE | 2017-04-05 01:04 | PN ---
DATE: 04/04/2017 SUBJECTIVE: No complaints or concerns. Her bowels moved well yesterday per nursing and she agrees. She is tolerating her IV meds through her PICC line without difficulty. She is not experiencing any pain. Denies fevers, chills, nausea, vomiting or dysuria. Appetite is good and sleeping well. OBJECTIVE: VITAL SIGNS: Afebrile. Pulse is normal. Blood pressure has been elevated today as high as 185/82, room air oximetries are normal. GENERAL: She is in no acute distress. HEENT: Unremarkable. No congestion, no allergic features. Conjunctivae are clear. Mucous membranes are moist. NECK: Supple. HEART: Regular rate and rhythm. LUNGS: Clear to auscultation. ABDOMEN: Soft, nondistended, nontender. EXTREMITIES: Wound VAC is present on her left anterior knee and functioning well. No pain in the area of the knee or other joints without synovitis or effusion. LABORATORY DATA: Hemoglobin is 8.3, which is comparable to yesterday 8.4, but down from 3 days ago at 10.5. Sed rate 2 days ago was 62. Blood sugars are 103-118. Creatinine slowly increased from 0.7 to 1.3. Cultures are growing MSSA. ASSESSMENT: 1. Methicillin-sensitive Staphylococcus aureus of her left total knee, status post incision and drainage, on 04/01/2017. 2. Constipation, resolved that may have been affecting her renal function. We will recheck it. 3. Anemia, unclear reason. PLAN: Continue her IV Ancef. Arrangement is being made for IV antibiotics. She has a PICC line functioning. We will need to monitor her blood count, try to assess the reason for anemia and monitor her renal function, but she is off vancomycin at this point. W Bridger WONG MD DR: AAKASH/chaparro JOB#: [id number] / [id number]
[2017-04-05 03:00] VITALS: BP 123/87
[2017-04-05] MEDS: IV DEXTROSE 5 %-0.45 % NACL 1,000 ML IV SCH ×3 (03:15→23:15)
[2017-04-05 06:46] LABS: BASO # 0.1 x10^3/uL (0.0-0.2); BASO % 1 % (0-3); EOS % 4 % (0-3); HEMATOCRIT 31.8 % (36.0-47.0); HEMOGLOBIN 10.8 g/dL (12.0-15.5); LYMPH # 1.1 x10^3/uL (1.0-4.8); LYMPH % 13 % (24-48); MEAN CORPUSCULAR HEMOGLOBIN 28 pg (25-35); MEAN CORPUSCULAR HGB CONC 34 g/dL (31-37); MEAN CORPUSCULAR VOLUME 83 fL (79-100); MONO % 7 % (0-9); NEUT % 76 % (31-73); PLATELET COUNT 318 x10^3/uL (140-400); RED BLOOD COUNT 3.84 x10^6/uL (3.50-5.40); RED CELL DISTRIBUTION WIDTH 14.5 % (11.5-14.5); WHITE BLOOD COUNT 8.8 x10^3/uL (4.0-11.0)
[2017-04-05 06:53] LABS: ALBUMIN 2.5 g/dL (3.4-5.0); ALBUMIN/GLOBULIN RATIO 0.6 (1.0-1.7); CALCIUM 8.8 mg/dL (8.5-10.1); CREATININE 1.4 mg/dL (0.6-1.0); GFR 38.9; POTASSIUM 3.6 mmol/L (3.5-5.1); TOTAL BILIRUBIN 0.3 mg/dL (0.2-1.0); TOTAL PROTEIN 6.7 g/dL (6.4-8.2)
[2017-04-05 07:00] VITALS: BP 189/85
[2017-04-05] MEDS: ALBUTEROL SULFATE 2.5 MG/3 ML NEBU. NEB SCH ×5 (07:12→22:00)
[2017-04-05] MEDS: POLYETHYLENE GLYCOL 3350 17 GM PACKET. PO SCH (09:00)
[2017-04-05] MEDS: SENNOSIDES/DOCUSATE 8.6/50MG TABLET. PO SCH (09:00)
[2017-04-05] MEDS: ASPIRIN ENTERIC COATED 325 MG TABLET.DR. PO SCH ×2 (09:18→20:32)
[2017-04-05] MEDS: CELECOXIB 200 MG CAPSULE. PO SCH (09:18)
[2017-04-05] MEDS: CALCIUM CARB/VIT D3 500/200 TABLET. PO SCH ×2 (09:18→16:34)
[2017-04-05] MEDS: PANTOPRAZOLE 40 MG TABLET.DR. PO SCH (09:19)
[2017-04-05] MEDS: FERROUS SULFATE 325 MG TABLET. PO SCH ×2 (09:19→12:39)
[2017-04-05] MEDS: LOSARTAN POTASSIUM 50 MG TABLET. PO SCH (09:20)
[2017-04-05] MEDS: MULTIVITAMIN with MINERAL TABLET. PO SCH (09:21)
[2017-04-05] MEDS: ENOXAPARIN 40 MG/0.4 ML SYRINGE. SQ SCH ×2 (09:21→20:32)
[2017-04-05 11:00] VITALS: BP 108/77
[2017-04-05 12:21] LABS: HAPTOGLOBIN 248 mg/dL (34-200)
[2017-04-05] MEDS: ATENOLOL 50 MG TABLET. PO SCH (12:40)
--- NOTE | 2017-04-05 13:22 | PDOC ---
Infectious Disease Note Subjective Subjective Comfortable, pain controlled Ambulating in queen earlier with PT ROS ROS GEN: Denies fevers, chills, sweats HEENT: Denies blurred vision, sore throat CV: Denies chest pain RESP: Denies shortness of air, cough GI: Denies n/v/d NEURO: Denies confusion, dizziness MSK: Denies weakness, joint pain/swelling Vital Sign Vital Signs Vital Signs Date Time Temp Pulse Resp B/P (MAP) Pulse Ox O2 Delivery O2 Flow Rate FiO2 04/05/17 12:40 77 180/77 04/05/17 11:12 Room Air 04/05/17 11:00 98.8 20 94 98.8 04/05/17 08:20 2.0 Physical Exam PHYSICAL EXAM GENERAL: NAD, Alert HEENT: PERRL, OC/OP NECK: Supple, no JVD, no LN LUNGS: Clear HEART: S1S2, no gallop, no murmur ABD: Soft, NT, no organomegaly, no rebound EXT: No edema, no cyanosis,, knee dressing not opened CHIEF LIBRARIAN [employer]ANCH [employer] DEPARTMENT: Alert, oriented x 3, no focal neurologic deficit SKIN: No rash IV: ok Labs Lab Laboratory Tests Test 04/04/17 14:40 04/05/17 06:30 Reticulocyte Count (auto) 2.4 % (0.5-2.5) Haptoglobin 248 mg/dL (34-200) Iron Level 14 ug/dL (50-170) Total Iron Binding Capacity 256 ug/dL (250-450) Iron Saturation 5 % (15-34) White Blood Count 8.8 x10^3/uL (4.0-11.0) Red Blood Count 3.84 x10^6/uL (3.50-5.40) Hemoglobin 10.8 g/dL (12.0-15.5) Hematocrit 31.8 % (36.0-47.0) Mean Corpuscular Volume 83 fL (79-100) Mean Corpuscular Hemoglobin 28 pg (25-35) Mean Corpuscular Hemoglobin Concent 34 g/dL (31-37) Red Cell Distribution Width 14.5 % (11.5-14.5) Platelet Count 318 x10^3/uL (140-400) Neutrophils (%) (Auto) 76 % (31-73) Lymphocytes (%) (Auto) 13 % (24-48) Monocytes (%) (Auto) 7 % (0-9) Eosinophils (%) (Auto) 4 % (0-3) Basophils (%) (Auto) 1 % (0-3) Neutrophils # (Auto) 6.6 x10^3uL (1.8-7.7) Lymphocytes # (Auto) 1.1 x10^3/uL (1.0-4.8) Monocytes # (Auto) 0.6 x10^3/uL (0.0-1.1) Eosinophils # (Auto) 0.4 x10^3/uL (0.0-0.7) Basophils # (Auto) 0.1 x10^3/uL (0.0-0.2) Sodium Level 140 mmol/L (136-145) Potassium Level 3.6 mmol/L (3.5-5.1) Chloride Level 102 mmol/L (98-107) Carbon Dioxide Level 31 mmol/L (21-32) Anion Gap 7 (6-14) Blood Urea Nitrogen 8 mg/dL (7-20) Creatinine 1.4 mg/dL (0.6-1.0) Estimated GFR (Cockcroft-Gault) 38.9 BUN/Creatinine Ratio 6 (6-20) Glucose Level 95 mg/dL (70-99) Calcium Level 8.8 mg/dL (8.5-10.1) Total Bilirubin 0.3 mg/dL (0.2-1.0) Aspartate Amino Transf (AST/SGOT) 21 U/L (15-37) Alanine Aminotransferase (ALT/SGPT) 10 U/L (14-59) Alkaline Phosphatase 77 U/L (46-116) Total Protein 6.7 g/dL (6.4-8.2) Albumin 2.5 g/dL (3.4-5.0) Albumin/Globulin Ratio 0.6 (1.0-1.7) Objective Assessment Fever -better Leukocytosis - now s/p Dexamethasone 04/01 - better Left TKA infection s/p I and D 04/01 MSSA Renal insufficiency Plan Plan of Care Cont Cefazolin. Monitor labs/cultures and temp Social Service consult ALIVIA ARELLANO MD Apr 05, 2017 13:22
[2017-04-05] MEDS: METOCLOPRAMIDE HCL 10 MG/2 ML VIAL. IV PRN (14:57)
[2017-04-05 15:00] VITALS: BP 146/91
[2017-04-05 19:00] VITALS: BP 186/85
--- NOTE | 2017-04-05 22:12 | PN ---
DATE: 04/05/2017 SUBJECTIVE: No new complaints or concerns. Her wound VAC is functioning well and comfortable. She is off IV fluids, taking p.o. fluids well, eating, but had not had much appetite all week. Bowels are active. PHYSICAL EXAMINATION: VITAL SIGNS: Temperature 98.4, pulse 89, respiratory rate 20, blood pressure 189/85. Room air oxygen saturation 92% on room air. I's and O's show adequate urine output. GENERAL: She is in no acute distress. She is sitting up in a chair. HEENT: Unremarkable. HEART: Regular rate and rhythm. LUNGS: Clear. ABDOMEN: Soft. EXTREMITIES: Her left knee wound VAC is on. Fatty change of her lower extremities without edema. She has been up with therapy without any uncontrolled pain. LABORATORY DATA: White count is 8.8, hemoglobin has increased from 8.3 to 10.8, hematocrit has increased from 25 to 31.8 after fluids were stopped. Differential shows 76% neutrophils, 13% lymphocytes. Retic count was 2.4. Chemistry show saturation to be low at 5. Her iron is low at 14. Her TIBC is 256. Albumin is low at 2.5, down from 2.8 on the 14th. Liver enzymes are normal. Her creatinine continues to rise slightly from 1 to now 1.4. Electrolytes are normal. Her urinalysis on the 12th did show 30 protein. Cultures positive for MSSA. ASSESSMENT: 1. 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 2. Iron deficiency anemia. 3. Hypertension, uncontrolled with change of her home valsartan to losartan. 4. Proteinuria. 5. Protein malnutrition, moderately severe. PLAN: I will continue her IV antibiotics and she is to go home tomorrow with home IV antibiotics through her PICC line. We will start iron for her anemia. We will add atenolol 50 mg daily for hypertension. Plan on resuming her valsartan when she is home with 24-hour urine for total protein and creatinine clearance will be obtained. Her Celebrex will be stopped as possibly it is affecting her renal function. W Bridger WONG MD DR: AAKASH/chaparro JOB#: [id number] / [id number]
[2017-04-05 23:00] VITALS: BP 191/92
[2017-04-05] MEDS ORDERED: hydrALAZINE 25 MG TABLET PO ONE (23:00)
[2017-04-06 03:00] VITALS: BP 179/72
[2017-04-06 07:00] VITALS: BP 189/78
[2017-04-06] MEDS: ALBUTEROL SULFATE 2.5 MG/3 ML NEBU. NEB SCH ×4 (08:26→18:00)
[2017-04-06] MEDS: SENNOSIDES/DOCUSATE 8.6/50MG TABLET. PO SCH (09:00)
[2017-04-06] MEDS: FERROUS SULFATE 325 MG TABLET. PO SCH ×2 (09:00→09:44)
[2017-04-06] MEDS: POLYETHYLENE GLYCOL 3350 17 GM PACKET. PO SCH (09:00)
--- NOTE | 2017-04-06 09:07 | PDOC ---
PROGRESS NOTES Subjective Subjective Patient denies pain. Feels ready to go home today, no further nausea or emesis. Objective Objective Vital Signs Date Time Temp Pulse Resp B/P (MAP) Pulse Ox O2 Delivery O2 Flow Rate FiO2 04/06/17 08:27 97 Room Air 04/06/17 07:00 97.4 59 20 189/78 (115) 97.4 04/05/17 08:20 2.0 Intake and Output 04/06/17 07:00 Intake Total 250 ml Output Total 1250 ml Balance -1000 ml Intake Oral 200 ml IV Total 50 ml Output Urine Total 900 ml Emesis 350 ml # Voids 1 Physical Exam Abdomen: Normal bowel sounds, Soft, No tenderness Heart: Regular rate Extremities: No edema, Other (wound vac in place left knee) General: Alert, Oriented X3, No acute distress Lungs: Clear to auscultation Assessment Assessment Problems Medical Problems: (1) Left knee pain Status: Acute (2) Leukocytosis Status: Acute Plan Plan of Care 1. Infected left knee, POD #5 I&D - stable, afebrile, home today on 6 weeks IV Cefazolin and wound vac. 2. HTN - BP has been elevated, even with increase in her usual med. Discussed. Patient feels some of the elevation may be due to stress with being hospitalized and away from home. Will discharge on present meds, home health will be following and can let us know if elevation persists at home. 3. acute renal insufficiency - elevated creatinine is unusual for her. Celebrex has been discontinued and she is working at drinking more water. 24 hour urine in progress, await those results. Will need follow up lab after discharge. Comment Review of Relevant I have reviewed the following items brenna (where applicable) has been applied. Labs Laboratory Tests Test 04/04/17 14:40 04/05/17 06:30 Reticulocyte Count (auto) 2.4 % (0.5-2.5) Haptoglobin 248 mg/dL (34-200) Iron Level 14 ug/dL (50-170) Total Iron Binding Capacity 256 ug/dL (250-450) Iron Saturation 5 % (15-34) White Blood Count 8.8 x10^3/uL (4.0-11.0) Red Blood Count 3.84 x10^6/uL (3.50-5.40) Hemoglobin 10.8 g/dL (12.0-15.5) Hematocrit 31.8 % (36.0-47.0) Mean Corpuscular Volume 83 fL (79-100) Mean Corpuscular Hemoglobin 28 pg (25-35) Mean Corpuscular Hemoglobin Concent 34 g/dL (31-37) Red Cell Distribution Width 14.5 % (11.5-14.5) Platelet Count 318 x10^3/uL (140-400) Neutrophils (%) (Auto) 76 % (31-73) Lymphocytes (%) (Auto) 13 % (24-48) Monocytes (%) (Auto) 7 % (0-9) Eosinophils (%) (Auto) 4 % (0-3) Basophils (%) (Auto) 1 % (0-3) Neutrophils # (Auto) 6.6 x10^3uL (1.8-7.7) Lymphocytes # (Auto) 1.1 x10^3/uL (1.0-4.8) Monocytes # (Auto) 0.6 x10^3/uL (0.0-1.1) Eosinophils # (Auto) 0.4 x10^3/uL (0.0-0.7) Basophils # (Auto) 0.1 x10^3/uL (0.0-0.2) Sodium Level 140 mmol/L (136-145) Potassium Level 3.6 mmol/L (3.5-5.1) Chloride Level 102 mmol/L (98-107) Carbon Dioxide Level 31 mmol/L (21-32) Anion Gap 7 (6-14) Blood Urea Nitrogen 8 mg/dL (7-20) Creatinine 1.4 mg/dL (0.6-1.0) Estimated GFR (Cockcroft-Gault) 38.9 BUN/Creatinine Ratio 6 (6-20) Glucose Level 95 mg/dL (70-99) Calcium Level 8.8 mg/dL (8.5-10.1) Total Bilirubin 0.3 mg/dL (0.2-1.0) Aspartate Amino Transf (AST/SGOT) 21 U/L (15-37) Alanine Aminotransferase (ALT/SGPT) 10 U/L (14-59) Alkaline Phosphatase 77 U/L (46-116) Total Protein 6.7 g/dL (6.4-8.2) Albumin 2.5 g/dL (3.4-5.0) Albumin/Globulin Ratio 0.6 (1.0-1.7) Microbiology 03/30/17 Blood Culture - Final, Complete NO GROWTH AFTER 5 DAYS 04/01/17 AFB Specimen Processing Tissue - Final, Resulted 04/01/17 Acid Fast Bacilli Culture, Resulted Pending 04/01/17 Gram Stain - Final, Resulted 04/01/17 Fungal Culture, Resulted Pending 04/01/17 Fungal Culture Result 1, Resulted Pending 03/30/17 Urine Culture - Final, Complete 03/30/17 Urine Culture Result 1 (CHUCKY) - Final, Complete Medications Current Medications Ondansetron HCl (Zofran) 4 mg STK-MED ONCE .ROUTE ; Start 03/30/17 at 18:45; Stop 03/30/17 at 18:46; Status DC Sodium Chloride 1,000 ml @ 1,000 mls/hr 1X ONCE IV Last administered on 19:02; Start 03/30/17 at 19:00; Stop 03/30/17 at 19:59; Status DC Ondansetron HCl (Zofran) 4 mg 1X ONCE IV Last administered on 03/30/17 19:01 ; Start 03/30/17 at 19:00; Stop 03/30/17 at 19:01; Status DC Acetaminophen (Tylenol) 1,000 mg 1X ONCE PO Last administered on 03/30/17 19: 36; Start 03/30/17 at 19:45; Stop 03/30/17 at 19:46; Status DC Ondansetron HCl (Zofran) 4 mg PRN Q8HRS PRN IV NAUSEA/VOMITING Last administered on 03/31/17 17:38; Start 03/30/17 at 20:45; Stop 03/31/17 at 20:44 ; Status DC Fentanyl Citrate (Fentanyl 2ml Vial) 50 mcg PRN Q2HR PRN IV PAIN Last administered on 03/31/17 17:48; Start 03/30/17 at 20:45; Stop 03/31/17 at 20:44 ; Status DC Acetaminophen (Tylenol) 650 mg PRN Q4HRS PRN PO FEVER; Start 03/30/17 at 20:45 ; Stop 03/31/17 at 20:44; Status DC Lidocaine HCl 20 ml STK-MED ONCE .ROUTE ; Start 03/30/17 at 21:02; Stop at 21:03; Status DC Hydromorphone HCl (Dilaudid) 2 mg STK-MED ONCE .ROUTE ; Start 03/30/17 at 21:12 ; Stop 03/30/17 at 21:13; Status DC Vancomycin HCl (Vanco Per Pharmacy) 1 each PRN DAILY PRN MC SEE COMMENTS Last administered on 04/02/17 13:15; Start 03/30/17 at 22:00; Stop 04/03/17 at 08:29 ; Status DC Piperacillin Sod/ Tazobactam Sod 4.5 gm/Sodium Chloride 100 ml @ 200 mls/hr Q6HRS IV Last administered on 04/01/17 05:13; Start 03/31/17 at 00:00; Stop at 09:26; Status DC Vancomycin HCl 2 gm/Sodium Chloride 500 ml @ 250 mls/hr 1X ONCE IV Last administered on 03/30/17 22:52; Start 03/30/17 at 22:00; Stop 03/30/17 at 23:59 ; Status DC Vancomycin HCl 1.5 gm/Sodium Chloride 500 ml @ 250 mls/hr Q12H IV Last administered on 04/02/17 21:57; Start 03/31/17 at 10:30; Stop 04/03/17 at 08:29 ; Status DC Vancomycin HCl 1 each 1X ONCE MC ; Start 04/01/17 at 10:00; Stop 04/01/17 at 10 :01; Status DC Alprazolam (Xanax) 0.25 mg PRN Q6HRS PRN PO ANXIETY / AGITATION; Start at 11:15 Aspirin (Ecotrin) 325 mg BID PO Last administered on 04/05/17 20:32; Start at 21:00 Celecoxib (CeleBREX) 200 mg DAILY PO Last administered on 04/05/17 09:18; Start 04/01/17 at 09:00; Stop 04/05/17 at 10:23; Status DC Ferrous Sulfate (Feosol) 325 mg DAILY PO Last administered on 04/05/17 09:19; Start 03/31/17 at 12:00 Pantoprazole Sodium (Protonix) 40 mg DAILY PO Last administered on 04/05/17 09 :19; Start 03/31/17 at 11:00 Tramadol HCl (Ultram) 50 mg PRN Q6HRS PRN PO PAIN Last administered on 11:06; Start 03/31/17 at 11:15 Non-Formulary Medication 2 puff Q4HRS INH ; Start 03/31/17 at 12:00; Status UNV Calcium/Vitamin D (Oscal D 500mg/ 200uts) 1 tab BIDWMEALS PO Last administered on 04/05/17 16:34; Start 03/31/17 at 12:00 Non-Formulary Medication 1 each DAILY PO ; Start 04/01/17 at 09:00; Stop at 09:00; Status DC Multivitamins (Thera M Plus) 1 tab DAILY PO Last administered on 04/05/17 09: 21; Start 04/01/17 at 09:00 Losartan Potassium (Cozaar) 100 mg DAILY PO Last administered on 04/05/17 09: 20; Start 03/31/17 at 12:00 Enoxaparin Sodium (Lovenox 40mg Syringe) 40 mg BID SQ Last administered on 04/05 20:32; Start 03/31/17 at 12:00 Albuterol Sulfate (Ventolin Neb Soln) 2.5 mg Q4HRS NEB Last administered on 21:05; Start 03/31/17 at 12:00; Stop 04/03/17 at 20:00; Status DC Ondansetron HCl (Zofran) 4 mg PRN Q6HRS PRN IV NAUSEA/VOMITING; Start 04/01/17 at 07:00; Stop 04/02/17 at 06:59; Status DC Fentanyl Citrate (Fentanyl 2ml Vial) 25 mcg PRN Q5MIN PRN IV MILD PAIN; Start 04/01/17 at 07:00; Stop 04/02/17 at 06:59; Status DC Fentanyl Citrate (Fentanyl 2ml Vial) 50 mcg PRN Q5MIN PRN IV MODERATE PAIN Last administered on 04/01/17 10:14; Start 04/01/17 at 07:00; Stop 04/02/17 at 06:59; Status DC Ringer's Solution 1,000 ml @ 30 mls/hr Q24H IV Last administered on 04/01/17 06:58; Start 04/01/17 at 07:00; Stop 04/01/17 at 18:59; Status DC Lidocaine HCl 2 ml PRN 1X PRN ID PRIOR TO IV START; Start 04/01/17 at 07:00; Stop 04/02/17 at 06:59; Status DC Prochlorperazine Edisylate (Compazine) 5 mg PACU PRN PRN IV NAUSEA, MRX1 Last administered on 04/01/17 06:45; Start 04/01/17 at 07:00; Stop 04/02/17 at 07:00 ; Status DC Dexamethasone Sodium Phosphate (Decadron) 20 mg STK-MED ONCE .ROUTE ; Start at 07:05; Stop 04/01/17 at 07:06; Status DC Ondansetron HCl (Zofran) 4 mg STK-MED ONCE .ROUTE ; Start 04/01/17 at 07:05; Stop 04/01/17 at 07:06; Status DC Propofol 20 ml @ As Directed STK-MED ONCE IV ; Start 04/01/17 at 07:05; Stop at 07:06; Status DC Lidocaine HCl (Lidocaine Pf 2% Vial) 5 ml STK-MED ONCE .ROUTE ; Start 04/01/17 at 07:05; Stop 04/01/17 at 07:06; Status DC Fentanyl Citrate (Fentanyl 2ml Vial) 100 mcg STK-MED ONCE .ROUTE ; Start at 07:06; Stop 04/01/17 at 07:07; Status DC Midazolam HCl (Versed) 2 mg STK-MED ONCE .ROUTE ; Start 04/01/17 at 07:06; Stop 04/01/17 at 07:07; Status DC Tranexamic Acid 1000 mg/Sodium Chloride 60 ml @ 60 mls/hr 1X PERIOP ONCE INJ Last administered on 04/01/17 07:45; Start 04/01/17 at 06:00; Stop 04/01/17 at 07:13; Status DC Tranexamic Acid 1000 mg/Sodium Chloride 60 ml @ 60 mls/hr 1X PERIOP ONCE INJ Last administered on 04/01/17 08:25; Start 04/01/17 at 08:00; Stop 04/01/17 at 08:59; Status DC Fentanyl Citrate (Fentanyl 2ml Vial) 100 mcg STK-MED ONCE .ROUTE ; Start at 07:28; Stop 04/01/17 at 07:29; Status DC Ephedrine Sulfate 50 mg STK-MED ONCE IV ; Start 04/01/17 at 07:54; Stop at 07:55; Status DC Propofol 20 ml @ As Directed STK-MED ONCE IV ; Start 04/01/17 at 08:28; Stop at 08:29; Status DC Tramadol HCl (Ultram) 50 mg PRN QID PRN PO PAIN; Start 04/01/17 at 09:15; Stop 04/01/17 at 11:17; Status DC Oxycodone/ Acetaminophen (Percocet 5/325) 1 tab PRN Q3HRS PRN PO PAIN; Start at 09:15 Oxycodone/ Acetaminophen (Percocet 7.5/ 325) 1 tab PRN Q3HRS PRN PO PAIN; Start 04/01/17 at 09:15 Tramadol HCl (Ultram) 100 mg PRN Q3HRS PRN PO PAIN Last administered on 11:07; Start 04/01/17 at 09:15 Morphine Sulfate 2 mg PRN Q1HR PRN IV PAIN; Start 04/01/17 at 09:15 Fentanyl Citrate (Fentanyl 2ml Vial) 25 mcg PRN Q1HR PRN IV PAIN; Start at 09:15 Diphenhydramine HCl (Benadryl) 25 mg PRN Q6HRS PRN IV ITCHING; Start 04/01/17 at 09:15 Multivitamins (Thera M Plus) 1 tab DAILY PO ; Start 04/02/17 at 09:00; Stop at 09:00; Status DC Senna/Docusate Sodium (Senna Plus) 1 tab DAILY PO Last administered on 09:52; Start 04/02/17 at 09:00 Dextrose/Sodium Chloride 1,000 ml @ 100 mls/hr Q10H IV Last administered on 20:35; Start 04/01/17 at 09:15 Prochlorperazine Maleate (Compazine) 10 mg PRN Q4HRS PRN PO NAUSEA/VOMITING Last administered on 04/05/17 14:57; Start 04/01/17 at 09:15 Metoclopramide HCl (Reglan) 10 mg PRN Q4HRS PRN IV NAUSEA/VOMITING Last administered on 04/05/17 14:57; Start 04/01/17 at 09:15 Magnesium Hydroxide (Milk Of Magnesia) 2,400 mg 1X PRN PRN PO CONSTIPATION; Start 04/02/17 at 06:00; Stop 04/03/17 at 05:59; Status DC Bisacodyl (Dulcolax Supp) 10 mg 1X PRN PRN RI CONSTIPATION; Start 04/02/17 at 16:00; Stop 04/03/17 at 15:59; Status DC Acetaminophen (Tylenol) 650 mg PRN Q4HRS PRN PO MILD PAIN / TEMP Last administered on 04/03/17 21:52; Start 04/01/17 at 09:15 Zolpidem Tartrate (Ambien) 5 mg PRN QHS PRN PO INSOMNIA, MAY REPEAT IN 1HR; Start 04/01/17 at 09:15 Calcium Carbonate/ Glycine (Tums) 500 mg PRN QID PRN PO INDIGESTION; Start at 09:15 Morphine Sulfate 4 mg PRN Q1HR PRN IV PAIN; Start 04/01/17 at 09:15 Morphine Sulfate 6 mg PRN Q1HR PRN IV PAIN; Start 04/01/17 at 09:15 Morphine Sulfate 8 mg PRN Q1HR PRN IV PAIN; Start 04/01/17 at 09:15 Sodium Chloride (Normal Saline Flush) 10 ml QSHIFT PRN IV AFTER MEDS AND BLOOD DRAWS; Start 04/01/17 at 09:15 Fentanyl Citrate (Fentanyl 2ml Vial) 50 mcg PRN Q1HR PRN IV PAIN Last administered on 04/01/17 15:04; Start 04/01/17 at 09:15 Prochlorperazine Edisylate (Compazine) 10 mg PRN Q4HRS PRN IV NAUSEA/VOMITING Last administered on 04/03/17 03:52; Start 04/01/17 at 09:15 Dextrose (Dextrose 50%-Water Syringe) 12.5 gm PRN Q15MIN PRN IV SEE COMMENTS; Start 04/01/17 at 09:15 Cefazolin Sodium 2 gm/Sodium Chloride 50 ml @ 100 mls/hr Q8HRS IV Last administered on 04/06/17 06:04; Start 04/01/17 at 11:00 Magnesium Hydroxide (Milk Of Magnesia) 2,400 mg PRN DAILY PRN PO CONSTIPATION; Start 04/03/17 at 09:30 Polyethylene Glycol (miraLAX PACKET) 17 gm DAILY PO Last administered on 09:53; Start 04/03/17 at 10:00 Albuterol Sulfate (Ventolin Neb Soln) 2.5 mg Q4HRS W/A NEB Last administered on 04/06/17 08:26; Start 04/04/17 at 06:00 Atenolol (Tenormin) 50 mg DAILY PO Last administered on 04/05/17 12:40; Start 04/05/17 at 12:00 Ferrous Sulfate (Feosol) 325 mg DAILYWBKFT PO Last administered on 04/05/17 12 :39; Start 04/05/17 at 12:00 Hydralazine HCl (Apresoline) 25 mg 1X ONCE PO Last administered on 04/05/17 23:06; Start 04/05/17 at 23:00; Stop 04/05/17 at 23:01; Status DC Active Scripts Active Reported Tramadol Hcl 50 Mg Tablet 1-2 Tab PO PRN Q4-6HRS PRN LAST DOSE GIVEN: DATE: 03/20/2017 TIME: 1230 pm Ferrous Sulfate 325 Mg Tablet 1 Tab PO DAILY LAST DOSE GIVEN: DATE: 03/20/2017 TIME: 9 am Aspirin Ec (Aspirin) 325 Mg Tablet.dr 325 Mg PO BID LAST DOSE GIVEN: DATE: 03/20/2017 TIME: 9 am Xanax (Alprazolam) 0.25 Mg Tablet 0.25 Mg PO PRN Q6HRS PRN Meds not given this hospital admission. May resume home medications as approved by Physician. Ventolin Hfa Inhaler (Albuterol Sulfate) 18 Gm Hfa.aer.ad 2 Puff INH Q4HRS Meds not given this hospital admission. May resume home medications as approved by Physician. Calcium 500-Vit D3 600 Tablet (Calcium Carbonate/Vitamin D3) 1 Each Tablet 1 Each PO BID LAST DOSE GIVEN: DATE: 03/20/2017 TIME: 9 am Centrum Silver Tablet (Multivits-Min/Fa/Lycopene/Lut) 1 Each Tablet 1 Each PO DAILY LAST DOSE GIVEN: DATE: 03/20/2017 TIME: 9 am Glucosamine-Msm Caplet (Glucosamine Sulfate/Msm) 1 Each Tablet 1 Each PO DAILY Meds not given this hospital admission. May resume home medications as approved by Physician. Celebrex (Celecoxib) 200 Mg Capsule 1 Cap PO DAILY LAST DOSE GIVEN: DATE: 03/20/2017 TIME: 9 am Diovan (Valsartan) 160 Mg Tablet 160 Mg PO DAILY LAST DOSE GIVEN: DATE: 03/20/2017 TIME: 9 am Pantoprazole Sodium 40 Mg Tablet.dr 40 Mg PO DAILY LAST DOSE GIVEN: DATE: 03/20/2017 TIME: 7 am Vitals/I & O Vital Sign - Last 24 Hours 04/05/17 04/05/17 04/05/17 04/05/17 09:20 11:00 11:12 12:40 Temp 98.8 98.8 Pulse 89 77 77 Resp 20 B/P (MAP) 189/85 108/77 (87) 180/77 Pulse Ox 94 O2 Delivery Room Air Room Air 04/05/17 04/05/17 04/05/17 04/05/17 15:00 19:00 20:00 20:26 Temp 99.9 99.0 99.9 99.0 Pulse 60 61 Resp 20 18 B/P (MAP) 146/91 (109) 186/85 (118) Pulse Ox 92 93 98 O2 Delivery Room Air Room Air Room Air Room Air 04/05/17 04/05/17 04/06/17 04/06/17 23:00 23:06 03:00 07:00 Temp 99.0 98.8 97.4 99.0 98.8 97.4 Pulse 62 62 66 59 Resp 18 18 20 B/P (MAP) 191/92 (125) 191/92 179/72 (107) 189/78 (115) Pulse Ox 94 97 94 O2 Delivery Room Air Room Air Room Air 04/06/17 08:27 Pulse Ox 97 O2 Delivery Room Air Intake and Output 04/05/17 04/05/17 04/06/17 15:00 23:00 07:00 Intake Total 50 ml 200 ml Output Total 1250 ml Balance 50 ml -1250 ml 200 ml BUSHRA IGLESIAS MD Apr 06, 2017 09:07
[2017-04-06] MEDS: IV DEXTROSE 5 %-0.45 % NACL 1,000 ML IV SCH (09:15)
--- NOTE | 2017-04-06 09:36 | PDOC ---
Infectious Disease Note Subjective Subjective Comfortable, pain controlled Ambulating in [place] earlier with PT ROS ROS GEN: Denies fevers, chills, sweats HEENT: Denies blurred vision, sore throat CV: Denies chest pain RESP: Denies shortness of air, cough GI: Denies n/v/d NEURO: Denies confusion, dizziness MSK: Denies weakness, Vital Sign Vital Signs Vital Signs Date Time Temp Pulse Resp B/P (MAP) Pulse Ox O2 Delivery O2 Flow Rate FiO2 04/06/17 08:27 97 Room Air 04/06/17 07:00 97.4 59 20 189/78 (115) 97.4 04/05/17 08:20 2.0 Physical Exam PHYSICAL EXAM GENERAL: NAD, Alert HEENT: PERRL, OC/OP NECK: Supple, no JVD, no LN LUNGS: Clear HEART: S1S2, no gallop, no murmur ABD: Soft, NT, no organomegaly, no rebound EXT: No edema, no cyanosis, knee incision 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 , change to 1 gm q 8 Monitor labs/cultures and temp Social Service consult f/u with us in 2 wks wkly cbc, bun/cr, sed rate ALIVIA ARELLANO MD Apr 06, 2017 09:36
[2017-04-06] MEDS: MULTIVITAMIN with MINERAL TABLET. PO SCH (09:41)
[2017-04-06] MEDS: LOSARTAN POTASSIUM 50 MG TABLET. PO SCH (09:42)
[2017-04-06] MEDS: PANTOPRAZOLE 40 MG TABLET.DR. PO SCH (09:43)
[2017-04-06] MEDS: ASPIRIN ENTERIC COATED 325 MG TABLET.DR. PO SCH (09:44)
[2017-04-06] MEDS: CALCIUM CARB/VIT D3 500/200 TABLET. PO SCH ×2 (09:48→17:02)
[2017-04-06] MEDS: ATENOLOL 50 MG TABLET. PO SCH (09:48)
[2017-04-06] MEDS: ENOXAPARIN 40 MG/0.4 ML SYRINGE. SQ SCH (09:50)
[2017-04-06 10:01] LABS: FOLATE 18.99 ng/ml (3.2-20.0)
[2017-04-06 11:00] VITALS: BP 198/75
--- NOTE | 2017-04-06 11:45 | DS ---
DATE OF DISCHARGE: 04/06/2017 CHIEF COMPLAINT: Left knee pain. HISTORY OF PRESENT ILLNESS: The patient is a 56-year-old female who had undergone left total knee replacement on 03/17/2017 and had been discharged to home after a several day hospital stay. She began to experience increasing pain in her left knee and noticed some redness and drainage as well. She had the onset of a fever and her pain continued to worsen. She came to the Emergency Room and was admitted for further treatment. HOSPITAL COURSE: The patient was admitted and seen in consultation by Orthopedic Surgery and Infectious Disease. On 04/01/2017 Dr. Chapman took the patient to the operating room and performed an open irrigation and debridement of her left total knee. Cultures from this were positive for MSSA. The patient was started on antibiotics per Infectious Disease.recommendation. When the final culture results were available, the patient was changed to cefazolin. A PICC line was placed and 6 weeks of IV antibiotic treatment is planned. A wound VAC was also placed on the left knee incision. The patient's symptoms are much improved and she denies any pain in her knee at this time. She has been afebrile with stable vital signs. The patient has a history of hypertension and has been on valsartan for several years for treatment of this. During her hospital stay, her blood pressure was noted to be significantly elevated. Medications were increased and she was also started on atenolol. She continues to have some elevated blood pressure. The patient feels that some of this is due to the stress of being in the hospital for the second time in a short period. She feels ready to go home today and feels that her blood pressure will be improved at home. She will be discharged on an increased dose of her usual valsartan and a prescription for the atenolol , which is new for her. She will be followed by home health and they will let our office know if her blood pressure remains elevated. The patient was also noted to have some acute renal insufficiency on her lab with creatinine elevated to 1.4. A 24-hour urine is under way and will be completed this afternoon. The patient's Celebrex was discontinued and she was advised to avoid any anti inflammatories at home. We will continue to follow this as an outpatient. It is expected that her creatinine will return to baseline with the discontinuation of NSAID. She is also working on drinking more water, which will help her renal function. FINAL DIAGNOSES: Infected left knee replacement, hypertension, acute renal insufficiency. DISCHARGE MEDICATIONS: Cefazolin 2 grams IV q. 8 hours, atenolol 50 mg daily, valsartan 320 mg daily, albuterol p.r.n., Xanax p.r.n., aspirin 325 mg daily, iron 325 mg daily, pantoprazole 40 mg daily, tramadol p.r.n. Followup is with Dr. Chapman in 2 days. Follow up with Dr. Marroquin as needed. BUSHRA MARROQUIN MD DR: ALFA/chaparro JOB#: [id number] / [id number] [email or web address]
[2017-04-06 12:00] VITALS: BP 174/76
[2017-04-06 12:27] LABS: CALCIUM 8.5 mg/dL (8.5-10.1); CREATININE 1.4 mg/dL (0.6-1.0); GFR 38.9; POTASSIUM 3.8 mmol/L (3.5-5.1)
--- NOTE | 2017-04-06 12:47 | PDOC ---
PROGRESS NOTES Subjective Subjective continues to do well. planning home today with home IV abx. Objective Vital Signs Vital Signs Date Time Temp Pulse Resp B/P (MAP) Pulse Ox O2 Delivery O2 Flow Rate FiO2 04/06/17 12:03 97 Room Air 04/06/17 12:00 55 174/76 (108) 04/06/17 11:00 99.9 20 99.9 04/05/17 08:20 2.0 Physical Exam prevena full--will get new tank. Knee benign. Labs Laboratory Tests Test 04/04/17 14:40 04/05/17 06:30 04/06/17 12:05 Reticulocyte Count (auto) 2.4 % (0.5-2.5) Haptoglobin 248 mg/dL (34-200) Iron Level 14 ug/dL (50-170) Total Iron Binding Capacity 256 ug/dL (250-450) Iron Saturation 5 % (15-34) Vitamin B12 Level 472 pg/mL (247-911) Serum Folate 18.99 ng/ml (3.2-20.0) White Blood Count 8.8 x10^3/uL (4.0-11.0) Red Blood Count 3.84 x10^6/uL (3.50-5.40) Hemoglobin 10.8 g/dL (12.0-15.5) Hematocrit 31.8 % (36.0-47.0) Mean Corpuscular Volume 83 fL (79-100) Mean Corpuscular Hemoglobin 28 pg (25-35) Mean Corpuscular Hemoglobin Concent 34 g/dL (31-37) Red Cell Distribution Width 14.5 % (11.5-14.5) Platelet Count 318 x10^3/uL (140-400) Neutrophils (%) (Auto) 76 % (31-73) Lymphocytes (%) (Auto) 13 % (24-48) Monocytes (%) (Auto) 7 % (0-9) Eosinophils (%) (Auto) 4 % (0-3) Basophils (%) (Auto) 1 % (0-3) Neutrophils # (Auto) 6.6 x10^3uL (1.8-7.7) Lymphocytes # (Auto) 1.1 x10^3/uL (1.0-4.8) Monocytes # (Auto) 0.6 x10^3/uL (0.0-1.1) Eosinophils # (Auto) 0.4 x10^3/uL (0.0-0.7) Basophils # (Auto) 0.1 x10^3/uL (0.0-0.2) Sodium Level 140 mmol/L (136-145) 138 mmol/L (136-145) Potassium Level 3.6 mmol/L (3.5-5.1) 3.8 mmol/L (3.5-5.1) Chloride Level 102 mmol/L (98-107) 100 mmol/L (98-107) Carbon Dioxide Level 31 mmol/L (21-32) 32 mmol/L (21-32) Anion Gap 7 (6-14) 6 (6-14) Blood Urea Nitrogen 8 mg/dL (7-20) 11 mg/dL (7-20) Creatinine 1.4 mg/dL (0.6-1.0) 1.4 mg/dL (0.6-1.0) Estimated GFR (Cockcroft-Gault) 38.9 38.9 BUN/Creatinine Ratio 6 (6-20) Glucose Level 95 mg/dL (70-99) 105 mg/dL (70-99) Calcium Level 8.8 mg/dL (8.5-10.1) 8.5 mg/dL (8.5-10.1) Total Bilirubin 0.3 mg/dL (0.2-1.0) Aspartate Amino Transf (AST/SGOT) 21 U/L (15-37) Alanine Aminotransferase (ALT/SGPT) 10 U/L (14-59) Alkaline Phosphatase 77 U/L (46-116) Total Protein 6.7 g/dL (6.4-8.2) Albumin 2.5 g/dL (3.4-5.0) Albumin/Globulin Ratio 0.6 (1.0-1.7) Laboratory Tests Test 04/06/17 12:05 Sodium Level 138 mmol/L (136-145) Potassium Level 3.8 mmol/L (3.5-5.1) Chloride Level 100 mmol/L (98-107) Carbon Dioxide Level 32 mmol/L (21-32) Anion Gap 6 (6-14) Blood Urea Nitrogen 11 mg/dL (7-20) Creatinine 1.4 mg/dL (0.6-1.0) Estimated GFR (Cockcroft-Gault) 38.9 Glucose Level 105 mg/dL (70-99) Calcium Level 8.5 mg/dL (8.5-10.1) Assessment Assessment s/p I&D of infected TKA Problems: Plan Plan of FPC on IV antibiotics. F/U my office Thursday for Prevena removal. EMA MONTANA MD Apr 06, 2017 12:47
[2017-04-06 15:00] VITALS: BP 172/64
[2017-04-06 23:11] LABS: TOTAL SERUM CREATININE 1.24 mg/dL (0.57-1.00); TOTAL URINE CREATININE 54.8 mg/dL (Not Estab.)
[2017-04-06 23:11] LABS: UR PROTEIN RD 19.8 mg/dL (Not Estab.)
== END 2017-04-06 19:30 | disposition home health service (06) | DRG 464 ==
LOC: ER 17:52 → 4 NORTH 20:23
PROVIDERS: ADMIT Family Medicine; ATTEND Family Medicine
PROC: 0S9D3ZX Drainage of Left Knee Joint, Percutaneous Approach, Diagnostic (ICD-10-PCS; 2017-03-30)
PROC: 02HV33Z Insertion of Infusion Device into Superior Vena Cava, Percutaneous Approach (ICD-10-PCS; 2017-03-31)
PROC: 0JBP0ZZ Excision of Left Lower Leg Subcutaneous Tissue and Fascia, Open Approach (ICD-10-PCS; 2017-04-01)
PROC: 0SRD0J9 Replacement of Left Knee Joint with Synthetic Substitute, Cemented, Open Approach (ICD-10-PCS; principal; 2017-04-01 07:10)
DX: T84.54XA Infection and inflammatory reaction due to internal left knee prosthesis, initial encounter (principal); E46 Unspecified protein-calorie malnutrition; Z68.41 Body mass index [BMI] 40.0-44.9, adult; M86.8X6 Other osteomyelitis, lower leg; D72.829 Elevated white blood cell count, unspecified; I10 Essential (primary) hypertension; Z96.652 Presence of left artificial knee joint; M19.90 Unspecified osteoarthritis, unspecified site; M54.30 Sciatica, unspecified side; Z90.49 Acquired absence of other specified parts of digestive tract; Z90.710 Acquired absence of both cervix and uterus; F41.1 Generalized anxiety disorder; J45.909 Unspecified asthma, uncomplicated; K21.9 Gastro-esophageal reflux disease without esophagitis; Z83.3 Family history of diabetes mellitus; Y83.1 Surgical operation with implant of artificial internal device as the cause of abnormal reaction of the patient, or of later complication, without mention of misadventure at the time of the procedure; B95.61 Methicillin susceptible Staphylococcus aureus infection as the cause of diseases classified elsewhere; D50.9 Iron deficiency anemia, unspecified; K59.00 Constipation, unspecified; N28.9 Disorder of kidney and ureter, unspecified; E66.9 Obesity, unspecified; F41.9 Anxiety disorder, unspecified
CPT/HCPCS: 20610; 36415; 71010; 80048; 80053; 80202; 81001; 82570; 82575; 82607; 82746; 83010; 83036; 83540; 83550; 83690; 84156; 85007; 85014; 85018; 85027; 85045; 85651; 86140; 87040; 87071; 87075; 87086; 87102; 87116; 87186; 87205; 89050; 94250; 94640; 94760; 96361; 96374; J0690; J0780; J1100; J1650; J2250; J2405; J2543; J2704; J2765; J3010; J3370; J7030; J7040; J7120; Q0164; 97110; 97116; 97530; 97535; 99285-25; C1769

== ENCOUNTER → 2017-03-30 | Outpatient (CLI) | payer BC ==
[2017-03-20 08:08] VITALS: BP 157/79
[~2017-03-30] MED LIST changes: +ASPI325T11 PO; -CELECOXIB 200 MG CAPSULE. PO PRN; +CYCL10TA2 PO; +FERR-26 PO; +HYDR-2762 PO; -MELO-150 PO; +MELO15TA23 PO; -OLME20TA PO; +OLME20TA19 PO; +TRAM50TA PO; +WARF2TAB PO
--- NOTE | 2017-03-30 11:12 | RAD ---
EXAM: Left lower extremity venous Doppler. HISTORY: Left calf pain/swelling. COMPARISON: None. FINDINGS: Grayscale and Doppler analysis of the left lower extremity deep venous system was performed with graded compression and augmentation. The common femoral, greater saphenous, superficial femoral, popliteal and calf veins were assessed. There is no evidence of deep venous thrombosis. IMPRESSION: 1. No evidence of deep venous thrombosis.
== END | disposition home or self-care (01) ==
LOC: US 10:29
PROVIDERS: ATTEND Physician Assistant Surgical
DX: M79.662 Pain in left lower leg (principal); M79.89 Other specified soft tissue disorders
CPT/HCPCS: 93971

== ENCOUNTER → 2017-04-09 | Outpatient (CLI) | payer BC ==
[2017-04-06 15:00] VITALS: BP 172/64
[~2017-04-09] MED LIST changes: +IOHEXOL 300 MG/ML 75 ML VIAL IV ONE
[2017-04-09 15:51] LABS: CREATININE 1.3 mg/dL (0.6-1.0); GFR 42.4
--- NOTE | 2017-04-09 16:57 | RAD ---
Indication shortness of air. Axial images through the chest were obtained. The examination was tailored for the detection of pulmonary embolus. MIP images were generated and reviewed. 60 cc of Omnipaque 300 was administered intravenously. Following the IV contrast administration the patient is to have a hydration protocol to lessen the chance of an adverse renal reaction associated with the IV contrast administration. No similar imaging is available.. The study is negative for pulmonary embolus. The thoracic aorta is unremarkable. There is moderately bulky right hilar adenopathy and to a lesser extent left. There is no significant mediastinal adenopathy. There is a small right pleural effusion and a minute left. There is some minimal scarring or atelectasis in the right middle lobe. A dominant soft tissue mass or acute parenchymal infiltrate in either lung is not seen. Imaging through the upper abdomen is unremarkable. IMPRESSION: Negative study for pulmonary embolus. Small right pleural effusion and a minute left pleural effusion. Moderate bilateral hilar adenopathy. PQRS Compliance Statement: One or more of the following individualized dose reduction techniques were utilized for this examination: 1. Automated exposure control 2. Adjustment of the mA and/or kV according to patient size 3. Use of iterative reconstruction technique
== END | disposition home or self-care (01) ==
LOC: CT 14:59
PROVIDERS: ATTEND Family Medicine
DX: J90 Pleural effusion, not elsewhere classified (principal); J45.909 Unspecified asthma, uncomplicated; R59.0 Localized enlarged lymph nodes
CPT/HCPCS: 36415; 71275; 82565; Q9967

== ENCOUNTER 2017-04-19 13:35 | Observation (INO) | payer BC ==
[~2017-04-19] VITALS: Ht 162.6 cm; Wt 104.3 kg
[~2017-04-19 13:35] MED LIST changes: -IOHEXOL 300 MG/ML 75 ML VIAL IV ONE
[2017-04-19] MEDS ORDERED: IV NORMAL SALINE 1000ML BAG 1,000 ML IV ONE (14:00)
[2017-04-19 14:17] LABS: BILIRUBIN,URINE NEGATIVE (NEG); GLUCOSE,URINE NEGATIVE (NEG); NITRITE,URINE NEGATIVE (NEG); PROTEIN,URINE 30 mg/dL (NEG-TRACE); UROBILINOGEN,URINE 0.2 mg/dL (0.2 mg/dL)
[2017-04-19 14:25] LABS: RBC,URINE 0 /HPF (0-2)
[2017-04-19 14:26] LABS: BACTERIA,URINE FEW /HPF (0-FEW); SQUAMOUS EPITHELIAL CELL,UR MANY /LPF
--- NOTE | 2017-04-19 14:27 | PHYS DOC ---
Past Medical History Past Medical History: Anemia, Hypertension, Sciatica Additional Past Medical Histor: OSTEOARTHRITIS Past Surgical History: Cholecystectomy, Hysterectomy Additional Past Surgical Histo: R KNEE,R ANKLE, L KNEE TOTAL REPLACEMENT Alcohol Use: None Drug Use: None Adult General Chief Complaint Chief Complaint: WEAKNESS/GENERALIZED HPI HPI Patient is a 56 year old F who presents with increased generalized weakness that is worse today than yesterday. Patient had a left total knee replacement done at the end of February which supple swelling gotten infected and now she is on daily antibiotic infusions. Patient states that today she is more weak and is unable to ambulate secondary to weakness. Patient denies any chest pain or shortness of breath. Patient denies any fevers. Patient denies any nausea/ vomiting/diarrhea. Patient has no other complaints. Pertinent exam findings: Heart was bradycardic with no murmurs Lungs were clear to auscultation bilaterally without crackles wheezes or rales Left knee has incision with Steri-Strips over it that looks clean/dry/intact and no signs of infection ED course: Seen and examined in the septic workup was ordered 1345: EKG shows sinus bradycardia rate of 46 no STEMI 1530: Updated patient on lab results and patient is still too weak to get up and move and does not want to be discharged home feels that she needs come the hospital. 1541: Discussed CC/HP/PMH with Dr. Pollock and recommends admit to observation Pertinent results: MDM: After reviewing the chart, CC/HPI/PMH, physical exam, [lab results], [ radiological results], I do not believe the patient is septic however has generalized weakness with inability to ambulate therefore we'll place the patient observation for further evaluation and management. Review of Systems Review of Systems GEN: Generalized weakness HEENT: Denies blurred vision, sore throat CV: Denies chest pain RESP: Denies shortness of air, cough GI: Denies n/v/d NEURO: Denies confusion, dizziness MSK: Denies weakness, joint pain/swelling Current Medications Current Medications Current Medications Medications (Trade) Dose Ordered Sig/Angie Start Time Stop Time Status Last Admin Dose Admin Sodium Chloride 1,000 ml @ 1,000 mls/hr 1X ONCE 04/19/17 14:00 04/19/17 14:59 DC 04/19/17 14:06 1,000 MLS/HR Allergies Allergies Allergies Coded Allergies Type Severity Reaction Last Updated Verified hydrocodone Adverse Reaction Intermediate Nausea and Vomiting 04/01/17 Yes Physical Exam Physical Exam GEN.: No apparent distress. Alert and oriented. HEENT: Head is normocephalic, atraumatic NECK: Supple. LUNGS: CTAB. HEART: sameer, S1, S2 present. Peripheral pulses intact ABDOMEN: Soft, nontender. Positive bowel sounds. EXTREMITIES: Without any cyanosis. Left knee has incision with Steri-Strips over it that looks clean/dry/intact and no signs of infection NEUROLOGIC: Normal speech, normal tone PSYCHIATRIC: Normal affect, normal mood. SKIN: No ulcerations Current Patient Data Vital Signs Vital Signs Date Time Temp Pulse Resp B/P (MAP) Pulse Ox O2 Delivery O2 Flow Rate FiO2 04/19/17 15:21 18 155/71 (99) 98 Room Air 04/19/17 14:35 50 04/19/17 13:42 98.3 98.3 Lab Values Laboratory Tests Test 04/19/17 14:00 04/19/17 14:25 Urine Collection Type Unknown Urine Color Yellow Urine Clarity Clear Urine pH 6.0 Urine Specific [place] 1.020 Urine Protein 30 mg/dL (NEG-TRACE) Urine Glucose (UA) Negative mg/dL (NEG) Urine Ketones (Stick) Negative mg/dL (NEG) Urine Blood Negative (NEG) Urine Nitrite Negative (NEG) Urine Bilirubin Negative (NEG) Urine Urobilinogen Dipstick 0.2 mg/dL (0.2 mg/dL) Urine Leukocyte Esterase Small (NEG) Urine RBC 0 /HPF (0-2) Urine WBC 5-10 /HPF (0-4) Urine Squamous Epithelial Cells Many /LPF Urine Bacteria Few /HPF (0-FEW) Urine Hyaline Casts Occasional /HPF Urine Mucus Mod /LPF White Blood Count 11.5 x10^3/uL (4.0-11.0) H Red Blood Count 3.81 x10^6/uL (3.50-5.40) Hemoglobin 10.5 g/dL (12.0-15.5) L Hematocrit 31.8 % (36.0-47.0) L Mean Corpuscular Volume 84 fL (79-100) Mean Corpuscular Hemoglobin 27 pg (25-35) Mean Corpuscular Hemoglobin Concent 33 g/dL (31-37) Red Cell Distribution Width 14.8 % (11.5-14.5) H Platelet Count 368 x10^3/uL (140-400) Neutrophils (%) (Auto) 74 % (31-73) H Lymphocytes (%) (Auto) 15 % (24-48) L Monocytes (%) (Auto) 8 % (0-9) Eosinophils (%) (Auto) 2 % (0-3) Basophils (%) (Auto) 1 % (0-3) Neutrophils # (Auto) 8.5 x10^3uL (1.8-7.7) H Lymphocytes # (Auto) 1.7 x10^3/uL (1.0-4.8) Monocytes # (Auto) 1.0 x10^3/uL (0.0-1.1) Eosinophils # (Auto) 0.2 x10^3/uL (0.0-0.7) Basophils # (Auto) 0.1 x10^3/uL (0.0-0.2) Sodium Level 140 mmol/L (136-145) Potassium Level 3.4 mmol/L (3.5-5.1) L Chloride Level 100 mmol/L (98-107) Carbon Dioxide Level 30 mmol/L (21-32) Anion Gap 10 (6-14) Blood Urea Nitrogen 12 mg/dL (7-20) Creatinine 0.9 mg/dL (0.6-1.0) Estimated GFR (Cockcroft-Gault) 64.8 BUN/Creatinine Ratio 13 (6-20) Glucose Level 105 mg/dL (70-99) H Lactic Acid Level 1.1 mmol/L (0.4-2.0) Calcium Level 9.3 mg/dL (8.5-10.1) Total Bilirubin 0.5 mg/dL (0.2-1.0) Aspartate Amino Transferase (AST) 16 U/L (15-37) Alanine Aminotransferase (ALT) 13 U/L (14-59) L Alkaline Phosphatase 71 U/L (46-116) Total Protein 6.8 g/dL (6.4-8.2) Albumin 3.2 g/dL (3.4-5.0) L Albumin/Globulin Ratio 0.9 (1.0-1.7) L Laboratory Tests 04/19/17 14:25 Laboratory Tests 04/19/17 14:25 EKG EKG [] Radiology/Procedures Radiology/Procedures [] Course & Med Decision Making Course & Med Decision Making Pertinent Labs and Imaging studies reviewed. (See chart for details) [] Dragon Disclaimer Dragon Disclaimer This electronic medical record was generated, in whole or in part, using a voice recognition dictation system. Departure Departure Impression: Primary Impression: Generalized weakness Disposition: ADMITTED INPATIENT Admitting Physician: Other (Dr. Pollock) Condition: STABLE Referrals: BUSHRA IGLESIAS MD (PCP) STEPH AVILES DO Apr 19, 2017 14:27
[2017-04-19 14:35] LABS: BASO # 0.1 x10^3/uL (0.0-0.2); BASO % 1 % (0-3); EOS % 2 % (0-3); HEMATOCRIT 31.8 % (36.0-47.0); HEMOGLOBIN 10.5 g/dL (12.0-15.5); LYMPH # 1.7 x10^3/uL (1.0-4.8); LYMPH % 15 % (24-48); MEAN CORPUSCULAR HEMOGLOBIN 27 pg (25-35); MEAN CORPUSCULAR HGB CONC 33 g/dL (31-37); MEAN CORPUSCULAR VOLUME 84 fL (79-100); MONO % 8 % (0-9); NEUT % 74 % (31-73); PLATELET COUNT 368 x10^3/uL (140-400); RED BLOOD COUNT 3.81 x10^6/uL (3.50-5.40); RED CELL DISTRIBUTION WIDTH 14.8 % (11.5-14.5); WHITE BLOOD COUNT 11.5 x10^3/uL (4.0-11.0)
[2017-04-19 14:42] LABS: CALCIUM 9.3 mg/dL (8.5-10.1); CREATININE 0.9 mg/dL (0.6-1.0); GFR 64.8; POTASSIUM 3.4 mmol/L (3.5-5.1)
[2017-04-19 14:48] LABS: ALBUMIN 3.2 g/dL (3.4-5.0); ALBUMIN/GLOBULIN RATIO 0.9 (1.0-1.7); TOTAL BILIRUBIN 0.5 mg/dL (0.2-1.0); TOTAL PROTEIN 6.8 g/dL (6.4-8.2)
[2017-04-19] MEDS ORDERED: ACETAMINOPHEN 325 MG TABLET. PO PRN (16:00)
[2017-04-19] MEDS ORDERED: MORPHINE SULFATE 4 MG/ML DISP.SYRIN. IV PRN (16:00)
[2017-04-19] MEDS ORDERED: ONDANSETRON PF 4 MG/2 ML VIAL. IV PRN (16:00)
[2017-04-19] MEDS ORDERED: CEFA1SYR IV (18:02)
[2017-04-19 18:38] VITALS: BP 149/72
[2017-04-19 19:00] VITALS: BP 162/68
[2017-04-19] MEDS: ASPIRIN ENTERIC COATED 325 MG TABLET.DR. PO SCH (21:00)
[2017-04-19] MEDS ORDERED: WATER IV SCH (21:00)
[2017-04-19] MEDS ORDERED: CEFAZOLIN SODIUM IV SCH (21:00)
[2017-04-19 23:00] VITALS: BP 155/71
[2017-04-20] VITALS (7 sets, daily range): BP systolic 164–187; BP diastolic 55–77
[2017-04-20 06:23] LABS: CALCIUM 8.3 mg/dL (8.5-10.1); CREATININE 0.8 mg/dL (0.6-1.0); GFR 74.2; POTASSIUM 3.2 mmol/L (3.5-5.1)
[2017-04-20 06:24] LABS: BASO # 0.1 x10^3/uL (0.0-0.2); BASO % 1 % (0-3); EOS % 2 % (0-3); HEMATOCRIT 29.5 % (36.0-47.0); HEMOGLOBIN 9.9 g/dL (12.0-15.5); LYMPH # 1.9 x10^3/uL (1.0-4.8); LYMPH % 22 % (24-48); MEAN CORPUSCULAR HEMOGLOBIN 28 pg (25-35); MEAN CORPUSCULAR HGB CONC 33 g/dL (31-37); MEAN CORPUSCULAR VOLUME 83 fL (79-100); MONO % 9 % (0-9); NEUT % 66 % (31-73); PLATELET COUNT 344 x10^3/uL (140-400); RED BLOOD COUNT 3.54 x10^6/uL (3.50-5.40); WHITE BLOOD COUNT 8.8 x10^3/uL (4.0-11.0)
--- NOTE | 2017-04-20 06:58 | EKG ---
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
[2017-04-20] MEDS: FERROUS SULFATE 325 MG TABLET. PO SCH (07:58)
[2017-04-20] MEDS: ASPIRIN ENTERIC COATED 325 MG TABLET.DR. PO SCH ×2 (07:58→21:09)
[2017-04-20] MEDS: PANTOPRAZOLE 40 MG TABLET.DR. PO SCH (07:58)
[2017-04-20] MEDS: LOSARTAN POTASSIUM 50 MG TABLET. PO SCH (07:58)
--- NOTE | 2017-04-20 09:07 | PDOC1 ---
History and Physical Date of Admission Date of Admission DATE: 04/20/17 TIME: 08:50 Identification/Chief Complaint Chief Complaint Weakness Problems: History of Present Illness History of Present Illness Patient is a 56 year old female who presented to the ER with the above complaint. Patient had TKA of the left knee last month. This was complicated by the development of infection in the joint and patient was started on IV abx for this. She was discharged home and has been receiving the abx but has been feeling increasingly weak and tired. Last week she had reported significant FLOR , which was unusual for her. Lab later in the week showed Hgb of 8.0. Outpatient transfusion was considered but patient stated she had started taking iron and eating more red meat and was feeling less short of breath. Patient has a history of HTN and had been started on Atenolol during her last admission as her BP was elevated on the maximum dose of an ARB. She had been taking this and blood pressures were apparently improved, but patient's heart rate was 46 when she presented to the ER yesterday. Treatment was initiated and she was admitted for further treatment. Past Medical History Cardiovascular: HTN Pulmonary: No pertinent hx, Asthma GI: No pertinent hx, GERD Musculoskeletal: Osteoarthritis, Other (patient reports she is having very little pain in her left knee post-operatively and not needing any pain medication stronger than Tylenol) Renal/: Other (Patient had acute renal insufficiency during her last hospitalization, thought to be due to NSAID's and some dehydration. Celebrex was discontinued and she made efforts to drink more fluids. Follow up lab as an outpatient last week showed that her creatinine had almost returned to normal.) Endocrine: Other (glucose intolerance) Past Surgical History Past Surgical History: Total knee replacement, Hysterectomy, Other Family History Family History: Diabetes, Heart Disease, Osteo Arthiritis Social History Smoke: No ALCOHOL: occassional Drugs: None Current Medications Current Medications Current Medications Sodium Chloride 1,000 ml @ 1,000 mls/hr 1X ONCE IV Last administered on t 14:06; Start 04/19/17 at 14:00; Stop 04/19/17 at 14:59; Status DC Ondansetron HCl (Zofran) 4 mg PRN Q8HRS PRN IV NAUSEA/VOMITING; Start 04/19/17 at 16:00; Stop 04/20/17 at 15:59 Morphine Sulfate 4 mg PRN Q2HR PRN IV PAIN; Start 04/19/17 at 16:00; Stop at 15:59 Acetaminophen (Tylenol) 650 mg PRN Q4HRS PRN PO FEVER; Start 04/19/17 at 16:00; Stop 04/20/17 at 15:59 Aspirin (Ecotrin) 325 mg BID PO Last administered on 04/20/17 07:58; Start 04/19 at 21:00 Non-Formulary Medication 1 gm TID IV ; Start 04/19/17 at 21:00; Status UNV Cefazolin Sodium 1 gm/Sodium Chloride 50 ml @ 100 mls/hr Q8HRS IV Last administered on 04/20/17 05:35; Start 04/19/17 at 22:00 Ferrous Sulfate (Feosol) 325 mg DAILYWBKFT PO Last administered on 04/20/17 07: 58; Start 04/20/17 at 08:00 Pantoprazole Sodium (Protonix) 40 mg DAILYAC PO Last administered on 04/20/17 07:58; Start 04/20/17 at 07:30 Losartan Potassium (Cozaar) 100 mg DAILY PO Last administered on 04/20/17 07:58 ; Start 04/20/17 at 09:00 Active Scripts Active Reported Cefazolin 1 G/10 ml-Water Syrg (Cefazolin Sodium/Water) 1 Gm/10 Ml Syringe 1 Gm IV TID Ferrous Sulfate 325 Mg Tablet 1 Tab PO DAILY LAST DOSE GIVEN: DATE: 03/20/2017 TIME: 9 am Aspirin Ec (Aspirin) 325 Mg Tablet.dr 325 Mg PO BID LAST DOSE GIVEN: DATE: 03/20/2017 TIME: 9 am Calcium 500-Vit D3 600 Tablet (Calcium Carbonate/Vitamin D3) 1 Each Tablet 1 Each PO BID LAST DOSE GIVEN: DATE: 03/20/2017 TIME: 9 am Centrum Silver Tablet (Multivits-Min/Fa/Lycopene/Lut) 1 Each Tablet 1 Each PO DAILY LAST DOSE GIVEN: DATE: 03/20/2017 TIME: 9 am Diovan (Valsartan) 160 Mg Tablet 320 Mg PO DAILY LAST DOSE GIVEN: DATE: 03/20/2017 TIME: 9 am Pantoprazole Sodium 40 Mg Tablet.dr 40 Mg PO DAILY LAST DOSE GIVEN: DATE: 03/20/2017 TIME: 7 am Allergies Allergies: Coded Allergies: hydrocodone (Verified Adverse Reaction, Intermediate, Nausea and Vomiting , 04/01/17) ROS General: YES: Other (patient reports some mild temperature elevations but not over 100 and they seemed to be decreasing) Respiratory: YES: Other (denies cough or chest congestion. Feels FLOR is much better) Cardiovascular: yes Other (denies CP or palpitations) Gastrointestinal: No Nausea, No Vomiting, No Abdominal Pain, No Diarrhea, No Constipation Genitourinary: YES Other (denies dysuria) Musculoskeletal: Yes Muscular Weakness (diffuse), Yes Other (pain in left knee is much improved) Physical Exam General: Alert, Oriented X3, No acute distress HEENT: PERRLA, EOMI Lungs: Clear to auscultation Heart: S1S2, no murmurs Abdomen: Normal bowel sounds, Soft, No tenderness Extremities: No edema, Other (Left knee incision healing well, no exudate, scant erythema) Vitals Vitals Vital Signs Date Time Temp Pulse Resp B/P (MAP) Pulse Ox O2 Delivery O2 Flow Rate FiO2 04/20/17 08:00 Room Air 04/20/17 07:58 56 177/61 04/20/17 07:16 98.6 15 94 98.6 Labs Labs Laboratory Tests Test 04/19/17 14:00 04/19/17 14:25 04/19/17 16:10 04/19/17 21:15 Urine Collection Type Unknown Urine Color Yellow Urine Clarity Clear Urine pH 6.0 Urine Specific [place] 1.020 Urine Protein 30 mg/dL (NEG-TRACE) Urine Glucose (UA) Negative mg/dL (NEG) Urine Ketones (Stick) Negative mg/dL (NEG) Urine Blood Negative (NEG) Urine Nitrite Negative (NEG) Urine Bilirubin Negative (NEG) Urine Urobilinogen Dipstick 0.2 mg/dL (0.2 mg/dL) Urine Leukocyte Esterase Small (NEG) Urine RBC 0 /HPF (0-2) Urine WBC 5-10 /HPF (0-4) Urine Squamous Epithelial Cells Many /LPF Urine Bacteria Few /HPF (0-FEW) Urine Hyaline Casts Occasional /HPF Urine Mucus Mod /LPF White Blood Count 11.5 x10^3/uL (4.0-11.0) Red Blood Count 3.81 x10^6/uL (3.50-5.40) Hemoglobin 10.5 g/dL (12.0-15.5) Hematocrit 31.8 % (36.0-47.0) Mean Corpuscular Volume 84 fL (79-100) Mean Corpuscular Hemoglobin 27 pg (25-35) Mean Corpuscular Hemoglobin Concent 33 g/dL (31-37) Red Cell Distribution Width 14.8 % (11.5-14.5) Platelet Count 368 x10^3/uL (140-400) Neutrophils (%) (Auto) 74 % (31-73) Lymphocytes (%) (Auto) 15 % (24-48) Monocytes (%) (Auto) 8 % (0-9) Eosinophils (%) (Auto) 2 % (0-3) Basophils (%) (Auto) 1 % (0-3) Neutrophils # (Auto) 8.5 x10^3uL (1.8-7.7) Lymphocytes # (Auto) 1.7 x10^3/uL (1.0-4.8) Monocytes # (Auto) 1.0 x10^3/uL (0.0-1.1) Eosinophils # (Auto) 0.2 x10^3/uL (0.0-0.7) Basophils # (Auto) 0.1 x10^3/uL (0.0-0.2) Sodium Level 140 mmol/L (136-145) Potassium Level 3.4 mmol/L (3.5-5.1) Chloride Level 100 mmol/L (98-107) Carbon Dioxide Level 30 mmol/L (21-32) Anion Gap 10 (6-14) Blood Urea Nitrogen 12 mg/dL (7-20) Creatinine 0.9 mg/dL (0.6-1.0) Estimated GFR (Cockcroft-Gault) 64.8 BUN/Creatinine Ratio 13 (6-20) Glucose Level 105 mg/dL (70-99) Lactic Acid Level 1.1 mmol/L (0.4-2.0) 0.8 mmol/L (0.4-2.0) 0.7 mmol/L (0.4-2.0) Calcium Level 9.3 mg/dL (8.5-10.1) Total Bilirubin 0.5 mg/dL (0.2-1.0) Aspartate Amino Transf (AST/SGOT) 16 U/L (15-37) Alanine Aminotransferase (ALT/SGPT) 13 U/L (14-59) Alkaline Phosphatase 71 U/L (46-116) Total Protein 6.8 g/dL (6.4-8.2) Albumin 3.2 g/dL (3.4-5.0) Albumin/Globulin Ratio 0.9 (1.0-1.7) Test 04/20/17 05:30 White Blood Count 8.8 x10^3/uL (4.0-11.0) Red Blood Count 3.54 x10^6/uL (3.50-5.40) Hemoglobin 9.9 g/dL (12.0-15.5) Hematocrit 29.5 % (36.0-47.0) Mean Corpuscular Volume 83 fL (79-100) Mean Corpuscular Hemoglobin 28 pg (25-35) Mean Corpuscular Hemoglobin Concent 33 g/dL (31-37) Red Cell Distribution Width 15.0 % (11.5-14.5) Platelet Count 344 x10^3/uL (140-400) Neutrophils (%) (Auto) 66 % (31-73) Lymphocytes (%) (Auto) 22 % (24-48) Monocytes (%) (Auto) 9 % (0-9) Eosinophils (%) (Auto) 2 % (0-3) Basophils (%) (Auto) 1 % (0-3) Neutrophils # (Auto) 5.8 x10^3uL (1.8-7.7) Lymphocytes # (Auto) 1.9 x10^3/uL (1.0-4.8) Monocytes # (Auto) 0.8 x10^3/uL (0.0-1.1) Eosinophils # (Auto) 0.2 x10^3/uL (0.0-0.7) Basophils # (Auto) 0.1 x10^3/uL (0.0-0.2) Sodium Level 141 mmol/L (136-145) Potassium Level 3.2 mmol/L (3.5-5.1) Chloride Level 104 mmol/L (98-107) Carbon Dioxide Level 31 mmol/L (21-32) Anion Gap 6 (6-14) Blood Urea Nitrogen 9 mg/dL (7-20) Creatinine 0.8 mg/dL (0.6-1.0) Estimated GFR (Cockcroft-Gault) 74.2 Glucose Level 97 mg/dL (70-99) Calcium Level 8.3 mg/dL (8.5-10.1) Laboratory Tests Test 04/19/17 14:00 04/19/17 14:25 04/19/17 16:10 04/19/17 21:15 Urine Collection Type Unknown Urine Color Yellow Urine Clarity Clear Urine pH 6.0 Urine Specific [place] 1.020 Urine Protein 30 mg/dL (NEG-TRACE) Urine Glucose (UA) Negative mg/dL (NEG) Urine Ketones (Stick) Negative mg/dL (NEG) Urine Blood Negative (NEG) Urine Nitrite Negative (NEG) Urine Bilirubin Negative (NEG) Urine Urobilinogen Dipstick 0.2 mg/dL (0.2 mg/dL) Urine Leukocyte Esterase Small (NEG) Urine RBC 0 /HPF (0-2) Urine WBC 5-10 /HPF (0-4) Urine Squamous Epithelial Cells Many /LPF Urine Bacteria Few /HPF (0-FEW) Urine Hyaline Casts Occasional /HPF Urine Mucus Mod /LPF White Blood Count 11.5 x10^3/uL (4.0-11.0) Red Blood Count 3.81 x10^6/uL (3.50-5.40) Hemoglobin 10.5 g/dL (12.0-15.5) Hematocrit 31.8 % (36.0-47.0) Mean Corpuscular Volume 84 fL (79-100) Mean Corpuscular Hemoglobin 27 pg (25-35) Mean Corpuscular Hemoglobin Concent 33 g/dL (31-37) Red Cell Distribution Width 14.8 % (11.5-14.5) Platelet Count 368 x10^3/uL (140-400) Neutrophils (%) (Auto) 74 % (31-73) Lymphocytes (%) (Auto) 15 % (24-48) Monocytes (%) (Auto) 8 % (0-9) Eosinophils (%) (Auto) 2 % (0-3) Basophils (%) (Auto) 1 % (0-3) Neutrophils # (Auto) 8.5 x10^3uL (1.8-7.7) Lymphocytes # (Auto) 1.7 x10^3/uL (1.0-4.8) Monocytes # (Auto) 1.0 x10^3/uL (0.0-1.1) Eosinophils # (Auto) 0.2 x10^3/uL (0.0-0.7) Basophils # (Auto) 0.1 x10^3/uL (0.0-0.2) Sodium Level 140 mmol/L (136-145) Potassium Level 3.4 mmol/L (3.5-5.1) Chloride Level 100 mmol/L (98-107) Carbon Dioxide Level 30 mmol/L (21-32) Anion Gap 10 (6-14) Blood Urea Nitrogen 12 mg/dL (7-20) Creatinine 0.9 mg/dL (0.6-1.0) Estimated GFR (Cockcroft-Gault) 64.8 BUN/Creatinine Ratio 13 (6-20) Glucose Level 105 mg/dL (70-99) Lactic Acid Level 1.1 mmol/L (0.4-2.0) 0.8 mmol/L (0.4-2.0) 0.7 mmol/L (0.4-2.0) Calcium Level 9.3 mg/dL (8.5-10.1) Total Bilirubin 0.5 mg/dL (0.2-1.0) Aspartate Amino Transf (AST/SGOT) 16 U/L (15-37) Alanine Aminotransferase (ALT/SGPT) 13 U/L (14-59) Alkaline Phosphatase 71 U/L (46-116) Total Protein 6.8 g/dL (6.4-8.2) Albumin 3.2 g/dL (3.4-5.0) Albumin/Globulin Ratio 0.9 (1.0-1.7) Test 04/20/17 05:30 White Blood Count 8.8 x10^3/uL (4.0-11.0) Red Blood Count 3.54 x10^6/uL (3.50-5.40) Hemoglobin 9.9 g/dL (12.0-15.5) Hematocrit 29.5 % (36.0-47.0) Mean Corpuscular Volume 83 fL (79-100) Mean Corpuscular Hemoglobin 28 pg (25-35) Mean Corpuscular Hemoglobin Concent 33 g/dL (31-37) Red Cell Distribution Width 15.0 % (11.5-14.5) Platelet Count 344 x10^3/uL (140-400) Neutrophils (%) (Auto) 66 % (31-73) Lymphocytes (%) (Auto) 22 % (24-48) Monocytes (%) (Auto) 9 % (0-9) Eosinophils (%) (Auto) 2 % (0-3) Basophils (%) (Auto) 1 % (0-3) Neutrophils # (Auto) 5.8 x10^3uL (1.8-7.7) Lymphocytes # (Auto) 1.9 x10^3/uL (1.0-4.8) Monocytes # (Auto) 0.8 x10^3/uL (0.0-1.1) Eosinophils # (Auto) 0.2 x10^3/uL (0.0-0.7) Basophils # (Auto) 0.1 x10^3/uL (0.0-0.2) Sodium Level 141 mmol/L (136-145) Potassium Level 3.2 mmol/L (3.5-5.1) Chloride Level 104 mmol/L (98-107) Carbon Dioxide Level 31 mmol/L (21-32) Anion Gap 6 (6-14) Blood Urea Nitrogen 9 mg/dL (7-20) Creatinine 0.8 mg/dL (0.6-1.0) Estimated GFR (Cockcroft-Gault) 74.2 Glucose Level 97 mg/dL (70-99) Calcium Level 8.3 mg/dL (8.5-10.1) VTE Prophylaxis Ordered VTE Prophylaxis Devices: Yes VTE Pharmacological Prophylaxi: Yes Assessment/Plan Assessment/Plan 1. Bradycardia - suspect this was the cause of most of the patient's feeling of generalized weakness. HR is improving and is now 58. Atenolol has been discontinued. Continue to follow. 2. HTN - BP significantly elevated. Continue ARB and add Amlodipine. 3. 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 Blood cultures pending but cultures done at home last week were negative. Continue Cephazolin per ID recommendations. 4. hypokalemia - replace po and follow lab. 5. anemia - much improved, continue po Fe daily. 6. weakness - No evidence of new infection at this time. Will have PT and OT see patient for further evaluation. Encouraged increased activity level today to see how she feels with this. BUSHRA IGLESIAS MD Apr 20, 2017 09:07
[2017-04-20] MEDS: amLODIPine BESYLATE 5 MG TABLET PO SCH (09:28)
[2017-04-20] MEDS: POTASSIUM CHLORIDE 20 MEQ TABLET.ER. PO SCH ×3 (09:28→15:59)
[2017-04-21 04:38] LABS: CALCIUM 8.4 mg/dL (8.5-10.1); CREATININE 0.9 mg/dL (0.6-1.0); GFR 64.8; POTASSIUM 3.6 mmol/L (3.5-5.1)
[2017-04-21 04:54] LABS: HEMATOCRIT 29.2 % (36.0-47.0); HEMOGLOBIN 9.6 g/dL (12.0-15.5); RED BLOOD COUNT 3.49 x10^6/uL (3.50-5.40); RED CELL DISTRIBUTION WIDTH 14.9 % (11.5-14.5); WHITE BLOOD COUNT 7.1 x10^3/uL (4.0-11.0)
[2017-04-21 07:04] VITALS: BP 166/77
[2017-04-21] MEDS: PANTOPRAZOLE 40 MG TABLET.DR. PO SCH (08:17)
[2017-04-21] MEDS: POTASSIUM CHLORIDE 20 MEQ TABLET.ER. PO SCH ×3 (08:18→17:00)
[2017-04-21] MEDS: LOSARTAN POTASSIUM 50 MG TABLET. PO SCH (08:18)
[2017-04-21] MEDS: ASPIRIN ENTERIC COATED 325 MG TABLET.DR. PO SCH ×2 (08:18→21:22)
[2017-04-21] MEDS: FERROUS SULFATE 325 MG TABLET. PO SCH (08:18)
[2017-04-21] MEDS: amLODIPine BESYLATE 5 MG TABLET PO SCH (08:19)
[2017-04-21 10:47] VITALS: BP 168/84
--- NOTE | 2017-04-21 13:02 | PDOC ---
PROGRESS NOTES Subjective Subjective Patient states she feels much better. Still felt weak when walking with PT yesterday but feels stronger today. Objective Objective Vital Signs Date Time Temp Pulse Resp B/P (MAP) Pulse Ox O2 Delivery O2 Flow Rate FiO2 04/21/17 10:47 98.5 68 18 168/84 (112) 97 Room Air 98.5 Intake and Output 04/21/17 07:00 Intake Total 1250 ml Balance 1250 ml Intake Oral 1200 ml IV Total 50 ml # Voids 6 Physical Exam Abdomen: Normal bowel sounds, Soft, No tenderness Heart: Regular rate Extremities: No edema General: Alert, Oriented X3, No acute distress Lungs: Clear to auscultation Plan Plan of Care 1. Bradycardia - resolving off beta jesus. 2. HTN - BP still elevated. Increase Amlodipine and order renal artery dopplers to r/o renal artery stenosis. 3. infected left knee prosthesis - stable, continue IV abx. 4. hypokalemia - improving, continue po replacement. 5. anemia - mild, stable. Comment Review of Relevant I have reviewed the following items brenna (where applicable) has been applied. Labs Laboratory Tests Test 04/19/17 14:00 04/19/17 14:25 04/19/17 16:10 04/19/17 21:15 Urine Collection Type Unknown Urine Color Yellow Urine Clarity Clear Urine pH 6.0 Urine Specific [place] 1.020 Urine Protein 30 mg/dL (NEG-TRACE) Urine Glucose (UA) Negative mg/dL (NEG) Urine Ketones (Stick) Negative mg/dL (NEG) Urine Blood Negative (NEG) Urine Nitrite Negative (NEG) Urine Bilirubin Negative (NEG) Urine Urobilinogen Dipstick 0.2 mg/dL (0.2 mg/dL) Urine Leukocyte Esterase Small (NEG) Urine RBC 0 /HPF (0-2) Urine WBC 5-10 /HPF (0-4) Urine Squamous Epithelial Cells Many /LPF Urine Bacteria Few /HPF (0-FEW) Urine Hyaline Casts Occasional /HPF Urine Mucus Mod /LPF White Blood Count 11.5 x10^3/uL (4.0-11.0) Red Blood Count 3.81 x10^6/uL (3.50-5.40) Hemoglobin 10.5 g/dL (12.0-15.5) Hematocrit 31.8 % (36.0-47.0) Mean Corpuscular Volume 84 fL (79-100) Mean Corpuscular Hemoglobin 27 pg (25-35) Mean Corpuscular Hemoglobin Concent 33 g/dL (31-37) Red Cell Distribution Width 14.8 % (11.5-14.5) Platelet Count 368 x10^3/uL (140-400) Neutrophils (%) (Auto) 74 % (31-73) Lymphocytes (%) (Auto) 15 % (24-48) Monocytes (%) (Auto) 8 % (0-9) Eosinophils (%) (Auto) 2 % (0-3) Basophils (%) (Auto) 1 % (0-3) Neutrophils # (Auto) 8.5 x10^3uL (1.8-7.7) Lymphocytes # (Auto) 1.7 x10^3/uL (1.0-4.8) Monocytes # (Auto) 1.0 x10^3/uL (0.0-1.1) Eosinophils # (Auto) 0.2 x10^3/uL (0.0-0.7) Basophils # (Auto) 0.1 x10^3/uL (0.0-0.2) Sodium Level 140 mmol/L (136-145) Potassium Level 3.4 mmol/L (3.5-5.1) Chloride Level 100 mmol/L (98-107) Carbon Dioxide Level 30 mmol/L (21-32) Anion Gap 10 (6-14) Blood Urea Nitrogen 12 mg/dL (7-20) Creatinine 0.9 mg/dL (0.6-1.0) Estimated GFR (Cockcroft-Gault) 64.8 BUN/Creatinine Ratio 13 (6-20) Glucose Level 105 mg/dL (70-99) Lactic Acid Level 1.1 mmol/L (0.4-2.0) 0.8 mmol/L (0.4-2.0) 0.7 mmol/L (0.4-2.0) Calcium Level 9.3 mg/dL (8.5-10.1) Total Bilirubin 0.5 mg/dL (0.2-1.0) Aspartate Amino Transf (AST/SGOT) 16 U/L (15-37) Alanine Aminotransferase (ALT/SGPT) 13 U/L (14-59) Alkaline Phosphatase 71 U/L (46-116) Total Protein 6.8 g/dL (6.4-8.2) Albumin 3.2 g/dL (3.4-5.0) Albumin/Globulin Ratio 0.9 (1.0-1.7) Test 04/20/17 05:30 04/21/17 03:55 White Blood Count 8.8 x10^3/uL (4.0-11.0) 7.1 x10^3/uL (4.0-11.0) Red Blood Count 3.54 x10^6/uL (3.50-5.40) 3.49 x10^6/uL (3.50-5.40) Hemoglobin 9.9 g/dL (12.0-15.5) 9.6 g/dL (12.0-15.5) Hematocrit 29.5 % (36.0-47.0) 29.2 % (36.0-47.0) Mean Corpuscular Volume 83 fL (79-100) 84 fL (79-100) Mean Corpuscular Hemoglobin 28 pg (25-35) 28 pg (25-35) Mean Corpuscular Hemoglobin Concent 33 g/dL (31-37) 33 g/dL (31-37) Red Cell Distribution Width 15.0 % (11.5-14.5) 14.9 % (11.5-14.5) Platelet Count 344 x10^3/uL (140-400) 318 x10^3/uL (140-400) Neutrophils (%) (Auto) 66 % (31-73) Lymphocytes (%) (Auto) 22 % (24-48) Monocytes (%) (Auto) 9 % (0-9) Eosinophils (%) (Auto) 2 % (0-3) Basophils (%) (Auto) 1 % (0-3) Neutrophils # (Auto) 5.8 x10^3uL (1.8-7.7) Lymphocytes # (Auto) 1.9 x10^3/uL (1.0-4.8) Monocytes # (Auto) 0.8 x10^3/uL (0.0-1.1) Eosinophils # (Auto) 0.2 x10^3/uL (0.0-0.7) Basophils # (Auto) 0.1 x10^3/uL (0.0-0.2) Sodium Level 141 mmol/L (136-145) 142 mmol/L (136-145) Potassium Level 3.2 mmol/L (3.5-5.1) 3.6 mmol/L (3.5-5.1) Chloride Level 104 mmol/L (98-107) 104 mmol/L (98-107) Carbon Dioxide Level 31 mmol/L (21-32) 31 mmol/L (21-32) Anion Gap 6 (6-14) 7 (6-14) Blood Urea Nitrogen 9 mg/dL (7-20) 8 mg/dL (7-20) Creatinine 0.8 mg/dL (0.6-1.0) 0.9 mg/dL (0.6-1.0) Estimated GFR (Cockcroft-Gault) 74.2 64.8 Glucose Level 97 mg/dL (70-99) 99 mg/dL (70-99) Calcium Level 8.3 mg/dL (8.5-10.1) 8.4 mg/dL (8.5-10.1) Laboratory Tests Test 04/21/17 03:55 White Blood Count 7.1 x10^3/uL (4.0-11.0) Red Blood Count 3.49 x10^6/uL (3.50-5.40) Hemoglobin 9.6 g/dL (12.0-15.5) Hematocrit 29.2 % (36.0-47.0) Mean Corpuscular Volume 84 fL (79-100) Mean Corpuscular Hemoglobin 28 pg (25-35) Mean Corpuscular Hemoglobin Concent 33 g/dL (31-37) Red Cell Distribution Width 14.9 % (11.5-14.5) Platelet Count 318 x10^3/uL (140-400) Sodium Level 142 mmol/L (136-145) Potassium Level 3.6 mmol/L (3.5-5.1) Chloride Level 104 mmol/L (98-107) Carbon Dioxide Level 31 mmol/L (21-32) Anion Gap 7 (6-14) Blood Urea Nitrogen 8 mg/dL (7-20) Creatinine 0.9 mg/dL (0.6-1.0) Estimated GFR (Cockcroft-Gault) 64.8 Glucose Level 99 mg/dL (70-99) Calcium Level 8.4 mg/dL (8.5-10.1) Microbiology 04/19/17 Blood Culture - Preliminary, Resulted NO GROWTH AFTER 1 DAY Medications Current Medications Sodium Chloride 1,000 ml @ 1,000 mls/hr 1X ONCE IV Last administered on 14:06; Start 04/19/17 at 14:00; Stop 04/19/17 at 14:59; Status DC Ondansetron HCl (Zofran) 4 mg PRN Q8HRS PRN IV NAUSEA/VOMITING; Start 04/19/17 at 16:00; Stop 04/20/17 at 15:59; Status DC Morphine Sulfate 4 mg PRN Q2HR PRN IV PAIN; Start 04/19/17 at 16:00; Stop at 15:59; Status DC Acetaminophen (Tylenol) 650 mg PRN Q4HRS PRN PO FEVER; Start 04/19/17 at 16:00; Stop 04/20/17 at 15:59; Status DC Aspirin (Ecotrin) 325 mg BID PO Last administered on 04/21/17 08:18; Start 04/19 at 21:00 Non-Formulary Medication 1 gm TID IV ; Start 04/19/17 at 21:00; Status UNV Cefazolin Sodium 1 gm/Sodium Chloride 50 ml @ 100 mls/hr Q8HRS IV Last administered on 04/21/17 06:15; Start 04/19/17 at 22:00 Ferrous Sulfate (Feosol) 325 mg DAILYWBKFT PO Last administered on 04/21/17 08: 18; Start 04/20/17 at 08:00 Pantoprazole Sodium (Protonix) 40 mg DAILYAC PO Last administered on 04/21/17 08:17; Start 04/20/17 at 07:30 Losartan Potassium (Cozaar) 100 mg DAILY PO Last administered on 04/21/17 08:18 ; Start 04/20/17 at 09:00 Potassium Chloride (Klor-Con) 20 meq TIDWMEALS PO Last administered on 08:18; Start 04/20/17 at 09:00 Amlodipine Besylate (Norvasc) 5 mg DAILY PO Last administered on 7/4/17at 08:19 ; Start 04/20/17 at 09:00 Active Scripts Active Reported Cefazolin 1 G/10 ml-Water Syrg (Cefazolin Sodium/Water) 1 Gm/10 Ml Syringe 1 Gm IV TID Ferrous Sulfate 325 Mg Tablet 1 Tab PO DAILY LAST DOSE GIVEN: DATE: 03/20/2017 TIME: 9 am Aspirin Ec (Aspirin) 325 Mg Tablet. 325 Mg PO BID LAST DOSE GIVEN: DATE: 03/20/2017 TIME: 9 am Calcium 500-Vit D3 600 Tablet (Calcium Carbonate/Vitamin D3) 1 Each Tablet 1 Each PO BID LAST DOSE GIVEN: DATE: 03/20/2017 TIME: 9 am Centrum Silver Tablet (Multivits-Min/Fa/Lycopene/Lut) 1 Each Tablet 1 Each PO DAILY LAST DOSE GIVEN: DATE: 03/20/2017 TIME: 9 am Diovan (Valsartan) 160 Mg Tablet 320 Mg PO DAILY LAST DOSE GIVEN: DATE: 03/20/2017 TIME: 9 am Pantoprazole Sodium 40 Mg Tablet.dr 40 Mg PO DAILY LAST DOSE GIVEN: DATE: 03/20/2017 TIME: 7 am Vitals/I & O Vital Sign - Last 24 Hours 04/20/17 04/20/17 04/20/17 04/20/17 15:09 16:03 19:00 23:00 Temp 98.7 99.3 99.0 98.7 99.3 99.0 Pulse 58 59 61 68 Resp 16 20 20 B/P (MAP) 185/77 (113) 173/69 (103) 164/74 (104) 168/70 (102) Pulse Ox 99 97 95 O2 Delivery Room Air Room Air Room Air 04/21/17 04/21/17 04/21/17 04/21/17 07:04 08:18 08:19 10:47 Temp 98.1 98.5 98.1 98.5 Pulse 58 58 58 68 Resp 17 18 B/P (MAP) 166/77 (106) 166/77 166/77 168/84 (112) Pulse Ox 96 97 O2 Delivery Room Air Room Air Intake and Output 04/20/17 04/20/17 04/21/17 15:00 23:00 07:00 Intake Total 750 ml 500 ml Balance 750 ml 500 ml BUSHRA IGLESIAS MD Apr 21, 2017 13:02
[2017-04-21] MEDS ORDERED: amLODIPine BESYLATE 5 MG TABLET PO ONE (13:30)
[2017-04-21 14:21] VITALS: BP 160/74
[2017-04-21 19:51] VITALS: BP 149/84
[2017-04-21 23:02] VITALS: BP 152/71
[2017-04-22 07:00] VITALS: BP 138/94
[2017-04-22] MEDS: POTASSIUM CHLORIDE 20 MEQ TABLET.ER. PO SCH ×2 (08:18→12:18)
[2017-04-22] MEDS: FERROUS SULFATE 325 MG TABLET. PO SCH (08:18)
[2017-04-22] MEDS: PANTOPRAZOLE 40 MG TABLET.DR. PO SCH (08:18)
[2017-04-22] MEDS: ASPIRIN ENTERIC COATED 325 MG TABLET.DR. PO SCH (08:18)
[2017-04-22] MEDS: LOSARTAN POTASSIUM 50 MG TABLET. PO SCH (08:22)
--- NOTE | 2017-04-22 08:41 | RAD ---
Deep Doppler renal ultrasound, 04/21/2017: History: Hypertension Duplex evaluation of the main renal arteries was performed including grayscale, color-flow and spectral Doppler analysis. No high velocities are seen in either main renal artery to suggest significant renal artery stenosis. The renal artery to aortic velocity ratios are normal. No parvus/tardus phenomena is seen. The renal veins are patent. The right kidney measures 11.6 cm in length while the left kidney measures 12.7 cm. IMPRESSION: No duplex evidence of significant renal artery stenosis.
[2017-04-22] MEDS ORDERED: AMLO10TA2 PO (08:47)
[2017-04-22] MEDS ORDERED: amLODIPine BESYLATE 10 MG TABLET PO SCH (09:00)
--- NOTE | 2017-04-22 10:26 | PDOC3 ---
Discharge Summary* Date of Admission: Apr 19, 2017 Date of Discharge: Apr 22, 2017 Admitting Diagnosis fatigue and generalized weakness. Problems: Final Diagnosis 1. Bradycardia. 2. Hypertension. 3. infected left knee prosthesis. 4. iron-deficiency anemia. 5. deconditioning weakness. 6. glucose intolerance. Brief Hospital Course Ms. Morales is a 56 old female who presented to the ER reporting several days of increasing generalized weakness. 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 She had been discharged to home on IV antibiotics for treatment of this but began to feel very weak and tired and found it difficult to take care of herself at home. Evaluation in the ER showed a heart rate of 46 and patient was admitted for further treatment. Patient had been started on Atenolol during her last hospitalization due to elevated blood pressure not well controlled by an ARB. This was held and her bradycardia resolved within two days. She remained afebrile with no evidence of a new infection. Her Cefazolin was continued per ID recommendations. Amlodipine was added and her hypertension appeared under much better control with this and Losartan (patient takes Valsartan at home). Patient had mild hypokalemia at admission which was treated with po replacement and resolved. Her anemia was stable and had improved from lab drawn at home prior to admission and she was advised to continue her daily iron supplement. She was seen by PT and feels her deconditioning weakness is improving. She will be discharged home today to continue PT with home health. Discharge meds remain the same as at admission except that Atenolol is discontinued and Amlodipine 10mg daily has been added. Disposition/Orders: D/C to Home w/ HH Scheduled Aspirin (Aspirin Ec), 325 MG PO BID, (Reported) Calcium Carbonate/Vitamin D3 (Calcium 500-Vit D3 600 Tablet), 1 EACH PO BID, ( Reported) Cefazolin Sodium/Water (Cefazolin 1 G/10 ml-Water Syrg), 1 GM IV TID, (Reported) Ferrous Sulfate (Ferrous Sulfate), 1 TAB PO DAILY, (Reported) Multivits-Min/Fa/Lycopene/Lut (Centrum Silver Tablet), 1 EACH PO DAILY, ( Reported) Pantoprazole Sodium (Pantoprazole Sodium), 40 MG PO DAILY, (Reported) Valsartan (Diovan), 320 MG PO DAILY, (Reported) Discontinued Medications Glucosamine Sulfate/Msm (Glucosamine-Msm Caplet), 1 EACH PO DAILY, (Reported) Tramadol Hcl (Tramadol Hcl), 1-2 TAB PO PRN Q4-6HRS PRN for PAIN, (Reported) PCP Follow up with Dr Marroquin within 2 weeks. Follow up with Orthopedics and Infectious Disease as advised. Time Spent Total time spent with patient [] minutes for coordination of care, counseling, and education. BUSHRA MARROQUIN MD Apr 22, 2017 10:26
[2017-04-22 11:00] VITALS: BP 170/86
== END 2017-04-22 12:22 | disposition home health service (06) ==
LOC: ER 13:35 → 6 SOUTH 15:47
PROVIDERS: ADMIT Family Medicine; ATTEND Family Medicine
DX: R53.1 Weakness (principal); R00.1 Bradycardia, unspecified; I10 Essential (primary) hypertension; E87.6 Hypokalemia; D50.9 Iron deficiency anemia, unspecified; E74.39 Other disorders of intestinal carbohydrate absorption; R06.02 Shortness of breath; M19.90 Unspecified osteoarthritis, unspecified site; T84.54XA Infection and inflammatory reaction due to internal left knee prosthesis, initial encounter; Y83.1 Surgical operation with implant of artificial internal device as the cause of abnormal reaction of the patient, or of later complication, without mention of misadventure at the time of the procedure; Z83.3 Family history of diabetes mellitus; Z96.659 Presence of unspecified artificial knee joint
CPT/HCPCS: 36415; 76770; 80048; 80053; 81001; 83605; 85027; 87040; 87086; 93005; 96361; 96365; 96366; 96375; 96376; 97161; 97165; 97530; 99285; G0378; G8987; G8988; G8989; J0690; J7030; G0379

== ENCOUNTER → 2018-08-12 | Outpatient (CLI) | payer BC ==
[~2018-08-12] MED LIST changes: +AMLO10TA6 PO; +CEFA1SYR IV; -FERR-26 PO; +FERR325T14 PO; +OLME20TA17 PO; -OLME20TA19 PO
--- NOTE | 2018-08-13 09:10 | RAD ---
Chest, 2 views, 08/12/2018: HISTORY: Cough, shortness of breath Comparison is made to a study from 04/01/2017. The heart size is normal. There is calcific plaquing of the aorta. The pulmonary vascularity is normal. No pulmonary infiltrate is seen. There is no evidence of pleural fluid. Mild spurring is present in the spine. IMPRESSION: No acute cardiopulmonary abnormality is detected. Electronically signed by: Arnav Manriquez MD (08/13/2018 9:07 AM) [facility]
== END | disposition home or self-care (01) ==
LOC: RAD 16:13
PROVIDERS: ATTEND Family Medicine
DX: J45.21 Mild intermittent asthma with (acute) exacerbation (principal)
CPT/HCPCS: 71046

== ENCOUNTER → 2018-10-13 | Outpatient (CLI) | payer BC ==
[~2018-10-13] MED LIST changes: -HYDR-2762 PO; +HYDR-2765 PO; +ZOLPIDEM 5 MG TABLET. PO ONE
--- NOTE | 2018-10-26 09:33 | SLEEP ---
DATE OF STUDY: 10/13/2018 ATTENDING PHYSICIAN: Dr. Kala Marroquin. REFERRING PHYSICIAN: Dr. Lerma. The patient is a 58-year-old who weighs 227 pounds with a BMI of 59. The patient's [place] score was 12. The patient underwent split night study at [facility]. During the night study, the patient spent 439 minutes in bed and slept for 264 minutes with a low sleep efficiency of 60%. Sleep latency was 19 minutes with a REM latency of 231 minutes. Overall sleep architecture showed normal stage 1 and stage 2 sleep, increased slow wave and increased REM sleep. During the initial diagnostic portion of the study, the patient slept for 71 minutes. The patient had 5 obstructive apneas, no mixed or central apneas and 65 hypopneas. The patient's apnea hypopnea index was 59 per hour, supine index 91 per hour. REM sleep was not seen during the diagnostic portion. EKG monitoring revealed normal sinus rhythm, average heart rate of 70 beats per minute. No arrhythmias observed. Nocturnal oximetry study revealed a mean oxygen saturation of 95% with lowest of 68%. 26% of time oxygen saturation remained between 80% and 89%. PLMS were seen at index of 40 per hour and 2 per hour caused EEG arousals. The patient met the criteria for CPAP initiation. It was started at 5 cm water and titrated up to 18 cm water. At the final pressure, the patient slept for 45 minutes. The patient had supine as well as REM sleep. The patient's AHI was reduced to 4 per hour mostly due to few central apneas and oxygen saturation remained above 90%. The patient used small size full face mask. IMPRESSION: 1. Severe sleep apnea-hypopnea syndrome at an apnea-hypopnea index of 59 per hour. 2. Nocturnal hypoxia secondary to obstructive sleep apnea, but resolved with CPAP. 3. Severe periodic limb movements of sleep. RECOMMENDATIONS: 1. CPAP at 18 cm water completely eliminated the patient's sleep apnea and should be used on a nightly basis. 2. Follow up in 4-6 weeks to assess compliance with CPAP and to document clinical improvement. 3. Weight loss is strongly advised. 4. Avoid [employer] ASSIST[employer] depressants. 5. Cautioned regarding driving until symptoms of sleep apnea have resolved with the use of CPAP. 6. The patient should also be further evaluated for symptoms of restless legs during the day. JIMBO ARREDONDO MD DR: SALVADOR/chaparro JOB#: [id number] / [id number] KALA Olvera MD, SABATO MD
== END | disposition home or self-care (01) ==
LOC: SLPLAB 18:24
PROVIDERS: ATTEND Internal Medicine Pulmonary Disease
DX: G47.33 Obstructive sleep apnea (adult) (pediatric) (principal); G47.34 Idiopathic sleep related nonobstructive alveolar hypoventilation
CPT/HCPCS: 95810